=== PATIENT | female | born 1975 | race Caucasian/White ===

== ENCOUNTER 2017-11-07 00:40 | Emergency (ER) | payer OTHER, SELFPAY ==
[2017-11-07 02:21] LABS: Absolute Lymphocytes (CBC) 2.4 K/uL (0.7-4.9); Absolute Monocytes 0.7 K/uL (0.1-1.3); Absolute Neutrophil 3.6 K/uL (1.8-8.0); Basophils % 0.7 % (0-1.3); MCV 85.3 fL (80-100); MPV 8.8 fL (7.6-11.3); Monocytes % 9.8 % (3.3-12.3)
--- NOTE | 2017-11-07 02:34 | ER ---
Nurse's Notes [facility] Name: Nesha Cooper Age: 42 yrs Sex: Female : 1975 Arrival Date: 11/07/2017 Time: 00:42 Bed 13 Private MD: Diagnosis: Abnormal uterine and vaginal bleeding, unspecified Presentation: 11/07 00:57 Presenting complaint: Patient states: "I started what I thought was my normal period, kb1 but I'm bleeding a lot", reports having episodes of dizziness when she gets up and that she is having some nausea. Transition of care: patient was not received from another setting of care. Onset of symptoms was November 06, 2017 at 12:00. Care prior to arrival: None. 00:57 Method Of Arrival: Ambulatory kb1 00:57 Acuity: DAREK 3 kb1 Triage Assessment: 01:01 General: Appears in no apparent distress. Behavior is calm, cooperative. Pain: kb1 Complains of pain in lower abdomen. Neuro: Level of Consciousness is awake, alert, obeys commands. Cardiovascular: Patient's skin is warm and dry. Respiratory: Respiratory effort is even, unlabored, Respiratory pattern is regular, symmetrical. GI: Abdomen is round non-distended, Reports nausea. : Reports vaginal bleeding that is heavy flow since yesterday. 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 - Social history:: Smoking status: Patient uses tobacco products, smokes one pack cigarettes per day. Screenin:06 Abuse screen: Denies threats or abuse. Nutritional screening: No deficits noted. kb1 Tuberculosis screening: No symptoms or risk factors identified. Fall Risk None identified. Assessment: 01:06 Reassessment: No changes from previously documented assessment. kb1 01:53 Reassessment: Patient appears in no apparent distress at this time. Patient and/or kb1 family updated on plan of care and expected duration. Pain level reassessed. Patient is alert, oriented x 3, equal unlabored respirations, skin warm/dry/pink. 02:47 Reassessment: Patient appears in no apparent distress at this time. Patient and/or kb1 family updated on plan of care and expected duration. Pain level reassessed. Patient is alert, oriented x 3, equal unlabored respirations, skin warm/dry/pink. Vital Signs: 01:01 BP 128 / 94; Pulse 81; Resp 18; Temp 97.7(TE); Pulse Ox 100% ; Weight 58.97 kg; Height kb1 6 ft. 0 in. (182.88 cm); Pain 7/10; 01:53 BP 111 / 69; Pulse 81; Resp 18; Pulse Ox 100% ; kb1 02:48 BP 123 / 89; Pulse 76; Resp 18; Pulse Ox 100% ; kb1 01:01 Body Mass Index 17.63 (58.97 kg, 182.88 cm) kb1 ED Course: 00:42 Patient arrived in ED. am2 00:49 Ottoniel Grossman NP is PHCP. pm1 00:49 Christian Blas MD is Attending Physician. pm1 00:55 Clarita Cooper, RN is Primary Nurse. kb1 01:00 Triage completed. kb1 01:01 Arm band placed on. kb1 01:06 Patient has correct armband on for positive identification. Bed in low position. Call kb1 light in reach. Side rails up X 1. Pulse ox on. NIBP on. 01:43 No provider procedures requiring assistance completed. Inserted saline lock: 20 gauge kb1 in right hand, using aseptic technique. Blood collected. 02:51 IV discontinued, intact, bleeding controlled, No redness/swelling at site. Pressure kb1 dressing applied. Administered Medications: 02:49 Drug: Potassium Effervescent Tablet 50 mEq Route: PO; kb1 02:49 Follow up: Response: Medication administered at discharge. kb1 Outcome: 02:33 Discharge ordered by MD. pm1 02:52 Discharged to home ambulatory, with family. kb1 02:52 Condition: stable 02:52 Discharge instructions given to patient, Instructed on discharge instructions, follow up and referral plans. Demonstrated understanding of instructions, follow-up care. 02:56 Patient left the ED. kb1 Signatures: Ottoniel Grossman, SHARON INSTALLATION DRAFTER pm1 Catarina Lion am2 Clarita Cooper RN RN kb1
--- NOTE | 2017-11-07 02:34 | EDPHYS ---
Physician Documentation [facility] Name: Nesha Cooper Age: 42 yrs Sex: Female : 1975 Arrival Date: 11/07/2017 Time: 00:42 Bed 13 Private MD: ED Physician Christian Blas HPI: 11/07 02:34 This 42 yrs old Female presents to ER via Ambulatory with complaints of pm1 Vaginal Bleeding, Nausea. 02:34 The patient presents with vaginal bleeding that is heavy, with no clots. Onset: The pm1 symptoms/episode began/occurred 5 day(s) ago. Modifying factors: The symptoms are alleviated by nothing, the symptoms are aggravated by nothing. Associated signs and symptoms: Pertinent positives: cramping, nausea, Pertinent negatives: diarrhea, dysuria, fever, vaginal discharge. Severity of symptoms: in the emergency department the symptoms are actually worse. The patient is sexually active. The patient has experienced similar episodes in the past, multiple times. The patient has not recently seen a physician. Patient with onset of menstrual cycle 5 days ago but reports it is heavier than her normal menses. 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 - Social history:: Smoking status: Patient uses tobacco products, smokes one pack cigarettes per day. ROS: 02:34 Positive for vaginal bleeding, menstrual abnormality, Negative for burning with pm1 urination. 02:34 Constitutional: Negative for fever, chills, and weight loss, Eyes: Negative for injury, pain, redness, and discharge, ENT: Negative for injury, pain, and discharge, Neck: Negative for injury, pain, and swelling, Cardiovascular: Negative for chest pain, palpitations, and edema, Respiratory: Negative for shortness of breath, cough, wheezing, and pleuritic chest pain, Back: Negative for injury and pain, MS/Extremity: Negative for injury and deformity, Skin: Negative for injury, rash, and discoloration, Neuro: Negative for headache, weakness, numbness, tingling, and seizure. 02:34 Abdomen/GI: Positive for nausea, abdominal cramps, Negative for vomiting, diarrhea. Exam: 02:34 Constitutional: This is a well developed, well nourished patient who is awake, alert, pm1 and in no acute distress. Head/Face: Normocephalic, atraumatic. Eyes: Pupils equal round and reactive to light, extra-ocular motions intact. Lids and lashes normal. Conjunctiva and sclera are non-icteric and not injected. Cornea within normal limits. Periorbital areas with no swelling, redness, or edema. ENT: Nares patent. No nasal discharge, no septal abnormalities noted. Tympanic membranes are normal and external auditory canals are clear. Oropharynx with no redness, swelling, or masses, exudates, or evidence of obstruction, uvula midline. Mucous membranes moist. Neck: Trachea midline, no thyromegaly or masses palpated, and no cervical lymphadenopathy. Supple, full range of motion without nuchal rigidity, or vertebral point tenderness. No Meningismus. Chest/axilla: Normal chest wall appearance and motion. Nontender with no deformity. No lesions are appreciated. Cardiovascular: Regular rate and rhythm with a normal S1 and S2. No gallops, murmurs, or rubs. Normal PMI, no JVD. No pulse deficits. Respiratory: Lungs have equal breath sounds bilaterally, clear to auscultation and percussion. No rales, rhonchi or wheezes noted. No increased work of breathing, no retractions or nasal flaring. 02:34 Back: No spinal tenderness. No costovertebral tenderness. Full range of motion. Skin: Warm, dry with normal turgor. Normal color with no rashes, no lesions, and no evidence of cellulitis. MS/ Extremity: Pulses equal, no cyanosis. Neurovascular intact. Full, normal range of motion. 02:34 Abdomen/GI: Inspection: abdomen appears normal, Bowel sounds: normal, Palpation: abdomen is soft and non-tender, in all quadrants, mass, is not appreciated, rebound tenderness, is not appreciated. 02:34 Neuro: Orientation: is normal, Motor: is normal, moves all fours, Sensation: is normal, no obvious gross deficits. Vital Signs: 01:01 BP 128 / 94; Pulse 81; Resp 18; Temp 97.7(TE); Pulse Ox 100% ; Weight 58.97 kg; Height kb1 6 ft. 0 in. (182.88 cm); Pain 7/10; 01:53 BP 111 / 69; Pulse 81; Resp 18; Pulse Ox 100% ; kb1 02:48 BP 123 / 89; Pulse 76; Resp 18; Pulse Ox 100% ; kb1 01:01 Body Mass Index 17.63 (58.97 kg, 182.88 cm) kb1 MDM: 00:49 Patient medically screened. pm1 02:32 Data reviewed: vital signs. Data interpreted: Pulse oximetry: on room air is 100 %. pm1 Interpretation: normal. Counseling: I had a detailed discussion with the patient and/or guardian regarding: the historical points, exam findings, and any diagnostic results supporting the discharge/admit diagnosis, lab results, the need for outpatient follow up, for definitive care, an OB/Gyne specialist, to return to the emergency department if symptoms worsen or persist or if there are any questions or concerns that arise at home. 11/07 01:04 Order name: Basic Metabolic Panel [facility] 11/07 01:04 Order name: CBC with Diff [facility] 11/07 01:05 Order name: Basic Metabolic Panel; Complete Time: 02:31 EDGA 11/07 01:05 Order name: CBC with Automated Diff; Complete Time: 02:31 EDGA 11/07 01:41 Order name: Urine Dipstick--Ancillary (enter results) [facility] 11/07 01:41 Order name: Urine --Ancillary (enter results) [facility] 11/07 01:04 Order name: Urine Test (obtain specimen); Complete Time: 01:40 pm1 11/07 01:04 Order name: IV Saline Lock; Complete Time: 01:42 pm 11/07 01:04 Order name: Labs collected and sent; Complete Time: 01:42 pm 11/07 01:04 Order name: Urine Dipstick-Ancillary (obtain specimen); Complete Time: 01:40 pm 11/07 01:41 Order name: Urine Dipstick-Ancillary [facility] 11/07 01:41 Order name: Urine --Ancillary EDMS Administered Medications: 02:49 Drug: Potassium Effervescent Tablet 50 mEq Route: PO; kb1 02:49 Follow up: Response: Medication administered at discharge. kb1 Disposition: 03:24 Co-signature as Attending Physician, Christian Blas MD. anuj Disposition: 11/07/17 02:33 Discharged to Home. Impression: Abnormal uterine and vaginal bleeding, unspecified. - Condition is Stable. - Discharge Instructions: Abnormal Uterine Bleeding. - Medication Reconciliation Form, Thank You Letter form. - Follow up: Emergency Department; When: As needed; Reason: Worsening of condition. Follow up: Private Physician; When: 2 - 3 days; Reason: Recheck today's complaints, Continuance of care, Re-evaluation by your physician. - Problem is new. - Symptoms have improved. Signatures: Dispatcher [employer] EDMS Christian Blas MD MD pkl Marinas, Patrick, GAS STATION CASHIER GAS STATION CASHIER pm1 Clarita Cooper, RN RN kb1
[2017-11-07] MEDS ORDERED: POTASSIUM 25 MEQ EFFERV TAB ONE (02:54)
[2017-11-07 03:03] VITALS: TEMP 97.7; O2SAT 100
[2017-11-07 03:05] VITALS: BP 123/89
[2017-11-07 03:37] LABS: Urine Blood 3+ (NEG); Urine Glucose NEGATIVE (NEG); Urine Protein 3+ (NEG); Urine Specific Gravity 1.025 (1.005-1.030); Urine pH 5.5 (5.0-7.0)
== END 2017-11-07 02:56 | disposition home or self-care (01) ==
LOC: ER 00:40
DX: Z88.8 Allergy status to other drugs, medicaments and biological substances; Z88.1 Allergy status to other antibiotic agents; F17.210 Nicotine dependence, cigarettes, uncomplicated; N93.9 Abnormal uterine and vaginal bleeding, unspecified; Z91.048 Other nonmedicinal substance allergy status; Z91.013 Allergy to seafood
CPT/HCPCS: 36415; 80048; 81003; 81025; 85025; 99284

== ENCOUNTER 2017-12-20 15:37 | Emergency (ER) | payer SELFPAY ==
--- NOTE | 2017-12-20 17:06 | RAD REPORT ---
EXAM DESCRIPTION: Stephen Single View12/20/2017 4:56 pm CLINICAL HISTORY: cough COMPARISON: December 2016 FINDINGS: The lungs appear clear of acute infiltrate. The heart is normal size IMPRESSION: No acute abnormalities displayed
--- NOTE | 2017-12-20 17:11 | ER ---
Nurse's Notes [facility] Name: Nesha Cooper Age: 42 yrs Sex: Female : 1975 Arrival Date: 12/20/2017 Time: 15:38 Bed 20 Private MD: Diagnosis: Acute upper respiratory infection, unspecified Presentation: 12/20 15:52 Presenting complaint: Patient states: cough, congestion, sore throat, not feeling well ch for the past week. I am worried i have pneumonia. Transition of care: patient was not received from another setting of care. Onset of symptoms was December 13, 2017. Initial Sepsis Screen: Does the patient meet any 2 criteria? No. Patient's initial sepsis screen is negative. Does the patient have a suspected source of infection? No. Patient's initial sepsis screen is negative. Care prior to arrival: None. 15:52 Method Of Arrival: Ambulatory 15:52 Acuity: DAREK 4 ch Triage Assessment: 15:54 General: Appears in no apparent distress. comfortable, Behavior is calm, cooperative, ch appropriate for age. Pain: Complains of pain in back and chest Pain currently is 6 out of 10 on a pain scale. EENT: Reports nasal congestion nasal discharge. 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 Flu vaccine is not up to date. - Social history:: Smoking status: Patient uses tobacco products, smokes one pack cigarettes per day. Screenin:04 Abuse screen: Denies threats or abuse. Denies injuries from another. Nutritional aj1 screening: No deficits noted. Tuberculosis screening: No symptoms or risk factors identified. Assessment: 16:04 General: Appears in no apparent distress. uncomfortable, Behavior is calm, cooperative, aj1 appropriate for age. Pain: Complains of pain in generalized body aches Pain does not radiate. Pain currently is 6 out of 10 on a pain scale. Quality of pain is described as aching. Neuro: Level of Consciousness is awake, alert, obeys commands, Oriented to person, place, time, situation, Speech is normal, Facial symmetry appears normal. Cardiovascular: Patient's skin is warm and dry. Respiratory: Reports cough that is productive, persistent Airway is patent Respiratory effort is even, unlabored, Respiratory pattern is regular, symmetrical, Breath sounds are clear bilaterally. GI: No signs and/or symptoms were reported involving the gastrointestinal system. : No signs and/or symptoms were reported regarding the genitourinary system. EENT: Throat is reddened bilaterally Reports nasal congestion nasal discharge. Derm: Skin is pink, warm \\T\\ dry. normal. Musculoskeletal: No signs and/or symptoms reported regarding the musculoskeletal system. Circulation, motion, and sensation intact. Vital Signs: 15:54 BP 136 / 96; Pulse 98; Resp 16; Temp 98.5; Pulse Ox 99% on R/A; Weight 58.97 kg; Height ch 6 ft. (182.88 cm); Pain 6/10; 15:54 Body Mass Index 17.63 (58.97 kg, 182.88 cm) ED Course: 15:38 Patient arrived in ED. as 15:53 Triage completed. ch 15:54 Arm band placed on left wrist. Patient placed in an exam room. 15:57 Odette Wilkins, BRENNEN is Primary Nurse. aj1 16:01 Manuel Zhu PA is PHCP. jr8 16:01 Gama Martin MD is Attending Physician. jr8 16:04 Patient has correct armband on for positive identification. Bed in low position. Call aj1 light in reach. Side rails up X 1. 16:04 No provider procedures requiring assistance completed. aj1 16:25 Flu and/or RSV swab sent to lab. Strep swab sent to lab. 3 16:56 X-ray completed. Portable x-ray completed in exam room. Patient tolerated procedure kc2 well. 16:56 XRAY Chest (1 view) In Process Unspecified. EDMS 17:29 Patient did not have IV access during this emergency room visit. aa5 Administered Medications: No medications were administered Outcome: 17:10 Discharge ordered by . dominique 17:29 Discharged to home ambulatory, with significant other. aa5 17:29 Condition: stable 17:29 Discharge instructions given to patient, Instructed on discharge instructions, follow up and referral plans. medication usage, Demonstrated understanding of instructions, follow-up care, medications, Prescriptions given X 2. 17:30 Patient left the ED. aa5 Signatures: Dispatcher [employer] EDMS Syl Mohr, RN RN Odette Choi RN RN [email or web address] Virgen Ron Audri, RN RN aa5 Manuel Zhu PA PA jr8 Kay Salinas 2 Porsha Lerner [facility]
--- NOTE | 2017-12-20 17:11 | EDPHYS ---
Physician Documentation [facility] Name: Nesha Cooper Age: 42 yrs Sex: Female : 1975 Arrival Date: 12/20/2017 Time: 15:38 Bed 20 Private MD: ED Physician Gama Martin HPI: 12/20 17:08 This 42 yrs old Female presents to ER via Ambulatory with complaints of Sore jr8 Throat, Cough. 17:08 The patient presents with sore throat. The patient describes throat pain as constant, jr8 raw. Onset: The symptoms/episode began/occurred acutely, yesterday. Severity of symptoms: At their worst the symptoms were mild, in the emergency department the symptoms are unchanged. Modifying factors: The symptoms are alleviated by nothing, the symptoms are aggravated by nothing. Associated signs and symptoms: Pertinent positives: cough. The patient has not experienced similar symptoms in the past. The patient has not recently seen a physician. 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 Flu vaccine is not up to date. - Social history:: Smoking status: Patient uses tobacco products, smokes one pack cigarettes per day. ROS: 17:08 Eyes: Negative for injury, pain, redness, and discharge, Neck: Negative for injury, jr8 pain, and swelling, Cardiovascular: Negative for chest pain, palpitations, and edema, Abdomen/GI: Negative for abdominal pain, nausea, vomiting, diarrhea, and constipation, Back: Negative for injury and pain, MS/Extremity: Negative for injury and deformity, Skin: Negative for injury, rash, and discoloration, Neuro: Negative for headache, weakness, numbness, tingling, and seizure. 17:08 ENT: Positive for rhinorrhea, sinus congestion, sore throat, Negative for drainage from ear(s), ear pain, difficulty swallowing, difficulty handling secretions. 17:08 Respiratory: Positive for cough, with yellow sputum, Negative for shortness of breath, wheezing. Exam: 17:08 Head/Face: Normocephalic, atraumatic. Eyes: Pupils equal round and reactive to light, jr8 extra-ocular motions intact. Lids and lashes normal. Conjunctiva and sclera are non-icteric and not injected. Cornea within normal limits. Periorbital areas with no swelling, redness, or edema. Neck: Trachea midline, no thyromegaly or masses palpated, and no cervical lymphadenopathy. Supple, full range of motion without nuchal rigidity, or vertebral point tenderness. No Meningismus. Cardiovascular: Regular rate and rhythm with a normal S1 and S2. No gallops, murmurs, or rubs. Normal PMI, no JVD. No pulse deficits. Respiratory: Lungs have equal breath sounds bilaterally, clear to auscultation and percussion. No rales, rhonchi or wheezes noted. No increased work of breathing, no retractions or nasal flaring. Abdomen/GI: Soft, non-tender, with normal bowel sounds. No distension or tympany. No guarding or rebound. No evidence of tenderness throughout. Back: No spinal tenderness. No costovertebral tenderness. Full range of motion. Skin: Warm, dry with normal turgor. Normal color with no rashes, no lesions, and no evidence of cellulitis. MS/ Extremity: Pulses equal, no cyanosis. Neurovascular intact. Full, normal range of motion. Neuro: Awake and alert, GCS 15, oriented to person, place, time, and situation. Cranial nerves II-XII grossly intact. Motor strength 5/5 in all extremities. Sensory grossly intact. Cerebellar exam normal. Normal gait. 17:08 ENT: Exam is negative for earache, ear discharge, TM abnormalities, nasal discharge, Posterior pharynx: Airway: patent, Tonsils: are normal in appearance, no enlargement, no erythema, no exudate, no ulcerations, Uvula: midline, non-edematous, no erythema, swelling, is not appreciated, erythema, that is mild. Vital Signs: 15:54 BP 136 / 96; Pulse 98; Resp 16; Temp 98.5; Pulse Ox 99% on R/A; Weight 58.97 kg; Height ch 6 ft. (182.88 cm); Pain 6/10; 15:54 Body Mass Index 17.63 (58.97 kg, 182.88 cm) MDM: 16:01 Patient medically screened. jr8 17:08 Data reviewed: vital signs, nurses notes, lab test result(s), radiologic studies, plain jr films, and as a result, I will discharge patient. Data interpreted: Pulse oximetry: on room air is 99 %. Interpretation: normal. Counseling: I had a detailed discussion with the patient and/or guardian regarding: the historical points, exam findings, and any diagnostic results supporting the discharge/admit diagnosis, lab results, radiology results, the need for outpatient follow up, a family practitioner, to return to the emergency department if symptoms worsen or persist or if there are any questions or concerns that arise at home. 12/20 15:56 Order name: Flu; Complete Time: 16:54 12/20 15:56 Order name: Strep; Complete Time: 16:54 12/20 16:33 Order name: XRAY Chest (1 view); Complete Time: 17:08 jr8 12/20 16:47 Order name: Throat Culture EDMS Administered Medications: No medications were administered Disposition: 22:34 Co-signature as Attending Physician, Gama Martin MD I agree with the assessment and kdr plan of care. Disposition: 12/20/17 17:10 Discharged to Home. Impression: Acute upper respiratory infection, unspecified. - Condition is Stable. - Discharge Instructions: Upper Respiratory Infection, Adult, Viral Infections. - Prescriptions for Prednisone 20 mg Oral Tablet - take 1 tablet by ORAL route once daily for 5 days; 5 tablet. Tessalon Perles 100 mg Oral Capsule - take 1 capsule by ORAL route every 8 hours As needed; 15 capsule. - Medication Reconciliation Form, Thank You Letter, Antibiotic Education, Prescription Opioid Use form. - Follow up: Private Physician; When: 2 - 3 days; Reason: Recheck today's complaints, Continuance of care, Re-evaluation by your physician. - Problem is new. - Symptoms have improved. Signatures: Dispatcher [employer] EDMS Syl Mohr RN RN Gama Martin MD MD [facility] Katlyn Alcaraz RN RN aa5 Mnauel Zhu PA PA jr8 Corrections: (The following items were deleted from the chart) 17:30 17:10 12/20/2017 17:10 Discharged to Home. Impression: Acute upper respiratory aa5 infection, unspecified. Condition is Stable. Forms are Medication Reconciliation Form, Thank You Letter, Antibiotic Education, Prescription Opioid Use. Follow up: Private Physician; When: 2 - 3 days; Reason: Recheck today's complaints, Continuance of care, Re-evaluation by your physician. Problem is new. Symptoms have improved. jr8
[2017-12-20 17:34] VITALS: BP 136/96; TEMP 98.5; O2SAT 99
== END 2017-12-20 17:30 | disposition home or self-care (01) ==
LOC: ER 15:37
DX: J06.9 Acute upper respiratory infection, unspecified (principal); F17.210 Nicotine dependence, cigarettes, uncomplicated; Z88.0 Allergy status to penicillin; Z91.013 Allergy to seafood; Z91.048 Other nonmedicinal substance allergy status
CPT/HCPCS: 71045; 87070; 87081; 87804; 99283

== ENCOUNTER 2018-02-03 01:11 | Emergency (ER) | payer SELFPAY ==
[2018-02-03] MEDS ORDERED: FLUORESCEIN SODIUM 0.6 MG/WRAP ONE (01:37)
[2018-02-03] MEDS ORDERED: TETRACAINE HCL 0.5% 2ML OPTH ONE (01:38)
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
[2018-02-03 06:15] VITALS: BP 116/92; TEMP 97.9; O2SAT 100
== END 2018-02-03 02:01 | disposition home or self-care (01) ==
LOC: ER 01:11
DX: S05.01XA Injury of conjunctiva and corneal abrasion without foreign body, right eye, initial encounter (principal); J45.909 Unspecified asthma, uncomplicated; X58.XXXA Exposure to other specified factors, initial encounter; Y93.55 Activity, bike riding; Y92.9 Unspecified place or not applicable; Y99.9 Unspecified external cause status; Z88.8 Allergy status to other drugs, medicaments and biological substances; Z88.0 Allergy status to penicillin; Z91.013 Allergy to seafood
CPT/HCPCS: 99283

== ENCOUNTER 2018-06-01 19:07 | Emergency (ER) | payer SELFPAY ==
[2018-06-01] MEDS ORDERED: HYDROCODONE/APAP 5/325 MG TAB ONE (21:02)
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
[2018-06-01 22:03] VITALS: TEMP 98
[2018-06-01 22:05] VITALS: BP 122/78; O2SAT 99
== END 2018-06-01 21:59 | disposition home or self-care (01) ==
LOC: ER 19:07
DX: M79.672 Pain in left foot (principal); W20.8XXA Other cause of strike by thrown, projected or falling object, initial encounter; Y93.9 Activity, unspecified; Y92.9 Unspecified place or not applicable; Z91.09 Other allergy status, other than to drugs and biological substances; Z91.013 Allergy to seafood
CPT/HCPCS: 99284

== ENCOUNTER 2020-01-25 17:57 | Emergency (ER) | payer SELFPAY ==
--- OUTSIDE RECORDS SUMMARY | 2020-01-25 18:24 | XMS REPORT | Continuity of Care Document ---
:1975 Author Organization [facility] t Address [address] [place] [address] Care Team Providers Name Role Phone Unavailable Unavailable Unavailable Problems This patient has no known problems. Allergies, Adverse Reactions, Alerts This patient has no known allergies or adverse reactions. Medications This patient has no known medications. Procedures This patient has no known procedures. Results This patient has no known results.
[2020-01-25 21:09] LABS: Absolute Lymphocytes (CBC) 2.1 K/uL (0.7-4.9); Basophils % 0.5 % (0-1.3); Hematocrit 43.5 % (36.0-45.0); MPV 9.3 fL (7.6-11.3)
[2020-01-25 21:13] LABS: BUN Blood Urea Nitrogen 3 mg/dL (7-18); Bicarbonate 30 mmol/L (21-32); Glucose Level 96 mg/dL (74-106); Sodium Level 140 mmol/L (136-145)
[2020-01-25 21:18] LABS: Potassium 3.4 mmol/L (3.5-5.1)
[2020-01-25] MEDS ORDERED: CLINDAMYCIN 600MG/D5W 600 MG/50 ML BAG IV ONE (21:23)
[2020-01-25] MEDS ORDERED: METHYLPREDNISOLONE 125 MG INJ ONE (21:23)
[2020-01-25] MEDS ORDERED: KETOROLAC 30 MG/ML INJ ONE (21:23)
[2020-01-25] MEDS ORDERED: DIPHENHYDRAMINE 50 MG/ML VIAL ONE (21:33)
[2020-01-25 22:01] LABS: Urine Blood 3+ (NEG); Urine Glucose NEGATIVE (NEG); Urine Protein NEGATIVE (NEG); Urine Specific Gravity 1.015 (1.005-1.030)
--- NOTE | 2020-01-25 23:28 | ER ---
Nurse's Notes [facility] Name: Nesha Cooper Age: 44 yrs Sex: Female : 1975 Arrival Date: 01/25/2020 Time: 18:01 Bed 5 Private MD: Diagnosis: Cellulitis of face;Dysmenorrhea, unspecified Presentation: 01/24 18:21 Chief complaint: Patient states: "I started my period was the first time in 12 months". aa5 Pt also reports sore to chin, and swelling under left eye. Pt also reports SOB and body aching that began 1 week ago. Pt also reports fever up to 101.0 F and headache. Pt denies cough. 18:21 Method Of Arrival: Ambulatory aa5 18:21 Acuity: DAREK 3 aa5 18:21 Coronavirus screen: Patient denies a cough. Patient reports shortness of breath or aa5 difficulty breathing. Patient reports a measured and/or subjective temperature greater than 100.4F. Patient denies travel on a cruise ship or to a country the [facility] currently lists as an affected area. Patient denies contact with known and/or suspected case of COVID-19. Ebola Screen: Patient negative for fever greater than or equal to 101.5 degrees Fahrenheit, and additional compatible Ebola Virus Disease symptoms. Onset of symptoms was January 2020. 18:21 Initial Sepsis Screen: Does the patient meet any 2 criteria? No. Patient's initial aa5 sepsis screen is negative. Does the patient have a suspected source of infection? No. Patient's initial sepsis screen is negative. Risk Assessment: Do you want to hurt yourself or someone else? Patient reports no desire to harm self or others. 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 - Social history:: Smoking status: Patient reports the use of cigarette tobacco products, smokes one-half pack cigarettes per day. Screenin:51 Abuse screen: Denies threats or abuse. Nutritional screening: No deficits noted. ea Tuberculosis screening: No symptoms or risk factors identified. Fall Risk None identified. Assessment: 20:51 General: Appears in no apparent distress. Behavior is calm, cooperative, appropriate ea for age. Pain: Complains of pain in left axilla. Neuro: Level of Consciousness is awake, alert, obeys commands, Oriented to person, place, time, situation. Cardiovascular: Patient's skin is warm and dry. Respiratory: Airway is patent Respiratory effort is even, unlabored, Respiratory pattern is regular, symmetrical. Derm: Skin is pink, warm \\T\\ dry. 21:23 Reassessment: Patient and/or family updated on plan of care and expected duration. Pain ea level reassessed. Patient is alert, oriented x 3, equal unlabored respirations, skin warm/dry/pink. 21:35 Reassessment: Patient and/or family updated on plan of care and expected duration. Pain rr5 level reassessed. Patient is alert, oriented x 3, equal unlabored respirations, skin warm/dry/pink. Pt taken to CT. 22:50 Reassessment: Patient appears in no apparent distress at this time. Patient and/or rr5 family updated on plan of care and expected duration. Pain level reassessed. Patient is alert, oriented x 3, equal unlabored respirations, skin warm/dry/pink. awaiting for results. 23:01 Reassessment: Patient and/or family updated on plan of care and expected duration. Pain ea level reassessed. Pt resting with eyes closed, respirations even and unlabored, chest expansions even and symmetrical. No s/s of pain or discomfort noted at this time. 23:26 Reassessment: [id number]. ea 23:39 Reassessment: Patient and/or family updated on plan of care and expected duration. Pain ea level reassessed. Patient is alert, oriented x 3, equal unlabored respirations, skin warm/dry/pink. Discharge instruction given to patient, verbalized the understanding of instruction. 23:45 Reassessment: Patient and/or family updated on plan of care and expected duration. Pain ea level reassessed. Patient is alert, oriented x 3, equal unlabored respirations, skin warm/dry/pink. Pt left ED via wheelchair, pt at facility for transfer home. Vital Signs: 18:21 BP 138 / 110; Pulse 98; Resp 18 S; Temp 98.8(O); Pulse Ox 98% on R/A; Weight 81.65 kg aa5 (R); Height 6 ft. 0 in. (182.88 cm) (R); Pain 8/10; 20:53 BP 140 / 96; Pulse 80; Resp 18; Pulse Ox 100% on R/A; ea 21:30 BP 143 / 103; Pulse 61; Resp 17; Pulse Ox 100% ; rr5 22:51 BP 111 / 83; Pulse 79; Resp 16; Pulse Ox 99% ; rr5 23:02 BP 104 / 82; Pulse 66; Resp 18; Pulse Ox 98% on R/A; ea 18:21 Body Mass Index 24.41 (81.65 kg, 182.88 cm) aa5 ED Course: 18:01 Patient arrived in ED. as 18:21 Arm band placed on. aa5 18:23 Triage completed. aa5 20:01 Davy Lugo MD is Attending Physician. tw4 20:13 Brady Talbot RN is Primary Nurse. rr5 20:23 Initial lab(s) drawn, by me, sent to lab. Inserted saline lock: 22 gauge in right ca1 forearm, using aseptic technique. Blood collected. 20:51 Patient has correct armband on for positive identification. Bed in low position. Call ea light in reach. 22:52 CT Maxillofacial W/cont In Process Unspecified. EDMS 23:38 No provider procedures requiring assistance completed. IV discontinued, intact, ea bleeding controlled, No redness/swelling at site. Pressure dressing applied. Administered Medications: 21:19 Drug: SOLU-Medrol 125 mg Route: IVP; Site: right forearm; ea 22:30 Follow up: Response: No adverse reaction ea 21:20 Drug: TORadol 30 mg Route: IVP; Site: right forearm; ea 22:00 Follow up: Response: No adverse reaction ea 21:22 Drug: Cleocin 600 mg Route: IVPB; Infused Over: 30 mins; Site: right forearm; ea 22:30 Follow up: Response: No adverse reaction; IV Status: Completed infusion ea 21:30 Drug: Benadryl 25 mg Route: IVP; Site: right forearm; rr5 22:30 Follow up: Response: No adverse reaction ea Outcome: 23:28 Discharge ordered by . tw4 23:39 Discharge instructions given to patient, Instructed on discharge instructions, follow ea up and referral plans. medication usage, Demonstrated understanding of instructions, follow-up care, medications, Prescriptions given X 2. 23:45 Discharged to home via wheelchair, with family. ea 23:45 Condition: stable 23:45 Patient left the ED. ea Signatures: Dispatcher [employer] Virgen Mohan Audri, RN RN aa5 Evelyn Alves RN RN Davy Fitzgerald MD MD tw4 Brady Talbot RN RN rr5 Kristine Olmos RN RN ca1 Corrections: (The following items were deleted from the chart) 18:23 18:21 Chief complaint: Patient states: "I started my period was the first time in 12 aa5 months". Pt also reports sore to chin, and swelling under left eye. Pt also reports SOB and body aching that began 1 week ago. aa5
--- NOTE | 2020-01-25 23:29 | EDPHYS ---
Physician Documentation [facility] Name: Nesha Cooper Age: 44 yrs Sex: Female : 1975 Arrival Date: 01/25/2020 Time: 18:01 Bed 5 Private MD: ED Physician Davy Lugo HPI: 01/24 22:07 This 44 yrs old Female presents to ER via Ambulatory with complaints of tw4 Vaginal Bleeding, Headache. 22:07 The patient presents with cellulitis of the left eye and chin. Description: tw4 erythematous. Onset: The symptoms/episode began/occurred today. Associated signs and symptoms: The patient has no apparent associated signs or symptoms. The patient presents with vaginal bleeding that is light. Onset: The symptoms/episode began/occurred today. Modifying factors: The symptoms are alleviated by nothing, the symptoms are aggravated by nothing. Severity of symptoms: At their worst the symptoms were moderate, in the emergency department the symptoms are unchanged. 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 - Social history:: Smoking status: Patient reports the use of cigarette tobacco products, smokes one-half pack cigarettes per day. ROS: 22:07 Positive for vaginal bleeding. tw4 22:07 Constitutional: Negative for fever, chills, and weight loss, Eyes: Negative for injury, tw4 pain, redness, and discharge, Cardiovascular: Negative for chest pain, palpitations, and edema, Respiratory: Negative for shortness of breath, cough, wheezing, and pleuritic chest pain, Abdomen/GI: Negative for abdominal pain, nausea, vomiting, diarrhea, and constipation, MS/Extremity: Negative for injury and deformity. 22:07 Constitutional: Positive for 22:07 Skin: Positive for erythema. Exam: 22:07 Constitutional: This is a well developed, well nourished patient who is awake, alert, tw4 and in no acute distress. Head/Face: Normocephalic, atraumatic. Chest/axilla: Normal chest wall appearance and motion. Nontender with no deformity. No lesions are appreciated. Cardiovascular: Regular rate and rhythm with a normal S1 and S2. No gallops, murmurs, or rubs. Normal PMI, no JVD. No pulse deficits. Respiratory: Lungs have equal breath sounds bilaterally, clear to auscultation and percussion. No rales, rhonchi or wheezes noted. No increased work of breathing, no retractions or nasal flaring. Abdomen/GI: Soft, non-tender, with normal bowel sounds. No distension or tympany. No guarding or rebound. No evidence of tenderness throughout. Back: No spinal tenderness. No costovertebral tenderness. Full range of motion. MS/ Extremity: Pulses equal, no cyanosis. Neurovascular intact. Full, normal range of motion. Neuro: Awake and alert, GCS 15, oriented to person, place, time, and situation. Cranial nerves II-XII grossly intact. Motor strength 5/5 in all extremities. Sensory grossly intact. Cerebellar exam normal. Normal gait. Vital Signs: 18:21 BP 138 / 110; Pulse 98; Resp 18 S; Temp 98.8(O); Pulse Ox 98% on R/A; Weight 81.65 kg aa5 (R); Height 6 ft. 0 in. (182.88 cm) (R); Pain 8/10; 20:53 BP 140 / 96; Pulse 80; Resp 18; Pulse Ox 100% on R/A; ea 21:30 BP 143 / 103; Pulse 61; Resp 17; Pulse Ox 100% ; rr5 22:51 BP 111 / 83; Pulse 79; Resp 16; Pulse Ox 99% ; rr5 23:02 BP 104 / 82; Pulse 66; Resp 18; Pulse Ox 98% on R/A; ea 18:21 Body Mass Index 24.41 (81.65 kg, 182.88 cm) aa5 MDM: 23:26 Data reviewed: vital signs, nurses notes. Data reviewed: lab test result(s), CBC, tw4 electrolytes, radiologic studies, CT scan. Data interpreted: Pulse oximetry: Interpretation: normal. Counseling: I had a detailed discussion with the patient and/or guardian regarding: the historical points, exam findings, and any diagnostic results supporting the discharge/admit diagnosis, lab results, radiology results. Medication response: Toradol markedly relieved the patient's pain. Response to treatment: the patient's symptoms have markedly improved after treatment, and as a result, I will discharge patient. 23:28 Patient medically screened. 01/24 20:02 Order name: Abo/rh Typing; Complete Time: 22:06 01/24 22:06 Interpretation: Within normal limits. 01/24 20:02 Order name: Basic Metabolic Panel; Complete Time: 22:06 01/24 22:06 Interpretation: Normal except: K 3.4; BUN 3. 01/24 20:02 Order name: CBC with Diff; Complete Time: 22:06 01/24 22:06 Interpretation: Normal except: MCV 88.8; RBC 4.90. 01/24 21:12 Order name: Urine Dipstick--Ancillary (enter results); Complete Time: 22:06 az01/24 22:06 Interpretation: Normal except: UBLD 3+. 01/24 21:12 Order name: Urine --Ancillary (enter results); Complete Time: 22:06 az01/24 21:13 Order name: CT Maxillofacial W/cont 01/24 20:02 Order name: Urine Test (obtain specimen); Complete Time: 21:03 01/24 20:02 Order name: IV Saline Lock; Complete Time: 20:23 01/24 20:02 Order name: Labs collected and sent; Complete Time: 20:23 01/24 20:02 Order name: NPO; Complete Time: 20:23 01/24 20:02 Order name: Urine Dipstick-Ancillary (obtain specimen); Complete Time: 21:03 Administered Medications: 21:19 Drug: SOLU-Medrol 125 mg Route: IVP; Site: right forearm; ea 22:30 Follow up: Response: No adverse reaction ea 21:20 Drug: TORadol 30 mg Route: IVP; Site: right forearm; ea 22:00 Follow up: Response: No adverse reaction ea 21:22 Drug: Cleocin 600 mg Route: IVPB; Infused Over: 30 mins; Site: right forearm; ea 22:30 Follow up: Response: No adverse reaction; IV Status: Completed infusion ea 21:30 Drug: Benadryl 25 mg Route: IVP; Site: right forearm; rr5 22:30 Follow up: Response: No adverse reaction ea Disposition: 01/25/20 23:28 Discharged to Home. Impression: Cellulitis of face, Dysmenorrhea, unspecified. - Condition is Stable. - Discharge Instructions: Cellulitis, Adult, Dysmenorrhea. - Prescriptions for Cleocin 300 mg Oral Capsule - take 1 capsule by ORAL route every 6 hours for 10 days; 40 capsule. Ibuprofen 800 mg Oral Tablet - take 1 tablet by ORAL route every 8 hours As needed take with food; 30 tablet. - Medication Reconciliation Form, Thank You Letter, Antibiotic Education, Prescription Opioid Use form. - Follow up: Private Physician; When: Upon discharge from the Emergency Department; Reason: Recheck today's complaints, Continuance of care, Re-evaluation by your physician. - Problem is new. - Symptoms have improved. Signatures: Dispatcher [employer] EDMS Katlyn Alcaraz RN RN aa5 Evelyn Alves RN RN ea Davy Lugo MD MD tw4 Brady Talbot RN RN rr5 Corrections: (The following items were deleted from the chart) 22:17 22:07 Constitutional: Negative for fever, chills, and weight loss, Eyes: Negative for tw4 injury, pain, redness, and discharge, Cardiovascular: Negative for chest pain, palpitations, and edema, Respiratory: Negative for shortness of breath, cough, wheezing, and pleuritic chest pain, Abdomen/GI: Negative for abdominal pain, nausea, vomiting, diarrhea, and constipation, MS/Extremity: Negative for injury and deformity, Skin: Negative for injury, rash, and discoloration, Neuro: Negative for headache, weakness, numbness, tingling, and seizure, tw4 23:28 23:28 01/25/2020 23:28 Discharged to Home. Impression: Cellulitis of face. Condition is tw4 Stable. Forms are Medication Reconciliation Form, Thank You Letter, Antibiotic Education, Prescription Opioid Use. Follow up: Private Physician; When: Upon discharge from the Emergency Department; Reason: Recheck today's complaints, Continuance of care, Re-evaluation by your physician. Problem is new. Symptoms have improved. tw4 23:45 23:28 01/25/2020 23:28 Discharged to Home. Impression: Cellulitis of face; ea Dysmenorrhea, unspecified. Condition is Stable. Forms are Medication Reconciliation Form, Thank You Letter, Antibiotic Education, Prescription Opioid Use. Follow up: Private Physician; When: Upon discharge from the Emergency Department; Reason: Recheck today's complaints, Continuance of care, Re-evaluation by your physician. Problem is new. Symptoms have improved. tw4
[2020-01-25 23:54] VITALS: TEMP 98.8
[2020-01-25 23:59] VITALS: BP 104/82; O2SAT 98
--- NOTE | 2020-01-27 10:19 | RAD REPORT ---
EXAM DESCRIPTION: CT - Maxillofacial W/Cont - 01/26/2020 5:41 am CLINICAL HISTORY: R/o orbital cellultis COMPARISON: None. TECHNIQUE: CT MAXILLOFACIAL WITH IV CONTRAST on 01/25/2020 9:13 PM CDT This exam was performed according to our departmental dose-optimization program, which includes autom ated exposure control, adjustment of the mA and/or kV according to patient size and/or use of iterati ve reconstruction technique. FINDINGS: There is no acute fracture. The paranasal sinuses are clear. There is left periorbital sof t tissue swelling. There is some superficial involvement with no retro-orbital structural abnormaliti es. The globes are intact. There is no abscess. Mastoid air cells are clear. Temporomandibular joints are intact. There are no significant soft tissue abnormalities. IMPRESSION: Left periorbital soft tissue swelling without intraorbital or retrobulbar involvement. Electronically signed by: Jagdeep Hunter MD 01/25/2020 10:57 PM CDT Due to temporary technical issues with the PACS/Fluency reporting system, reports are being signed by the in house radiologist without review as a courtesy to ensure prompt reporting. The interpreting r adiologist is fully responsible for the content of the report.
== END 2020-01-25 23:45 | disposition home or self-care (01) ==
LOC: ER 17:57
DX: N94.6 Dysmenorrhea, unspecified (principal); L03.211 Cellulitis of face; Z91.013 Allergy to seafood; Z91.09 Other allergy status, other than to drugs and biological substances; F17.210 Nicotine dependence, cigarettes, uncomplicated
CPT/HCPCS: 36415; 70487; 80048; 81003; 81025; 85025; 86900; 86901; 96365; 96375; 99284; J1200; J2930; Q9967

== ENCOUNTER 2020-03-10 00:09 | Emergency (ER) | payer SELFPAY ==
--- OUTSIDE RECORDS SUMMARY | 2020-03-10 00:12 | XMS REPORT | Continuity of Care Document ---
:1975 Author Organization [facility] t Address [facility] [place] [address] Care Team Providers Name Role Phone Unavailable Unavailable Unavailable Problems This patient has no known problems. Allergies, Adverse Reactions, Alerts This patient has no known allergies or adverse reactions. Medications This patient has no known medications. Procedures This patient has no known procedures. Results This patient has no known results.
--- NOTE | 2020-03-10 01:07 | EDPHYS ---
Physician Documentation [facility] Name: Nesha Cooper Age: 44 yrs Sex: Female : 1975 Arrival Date: 03/10/2020 Time: 00:15 Bed 18 Private MD: ED Physician Dahlia Gaming HPI: 03/10 00:54 This 44 yrs old Female presents to ER via Ambulatory with complaints of jmm Spider Bite. 00:54 the patient presents with a swollen area of the buttocks. Onset: The symptoms/episode jmm began/occurred 1 week(s) ago. Possible cause(s): unknown. Associated signs and symptoms: Pertinent positives: erythema, swelling, Pertinent negatives: fever. Modifying factors: the symptoms are alleviated by nothing, the symptoms are aggravated by nothing. This is a 44 year old female with a history of anxiety, asthma that presents to the ED with complaints of swelling to her right buttocks. Symptoms began approx 1 week ago. Denies fever. . 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 - Social history:: Smoking status: Patient reports the use of cigarette tobacco products, smokes one-half pack cigarettes per day. ROS: 01:01 Constitutional: Negative for fever, chills, and weight loss, Cardiovascular: Negative jmm for chest pain, palpitations, and edema, Respiratory: Negative for shortness of breath, cough, wheezing, and pleuritic chest pain. 01:01 Skin: Positive for erythema. 01:01 All other systems are negative. Exam: 01:01 Head/Face: atraumatic. Eyes: EOMI, no conjunctival erythema appreciated ENT: Moist jmm Mucus Membranes Neck: Trachea midline, Supple Chest/axilla: Normal chest wall appearance and motion. Cardiovascular: Regular rate and rhythm. No edema appreciated Respiratory: Normal respirations, no respiratory distress appreciated Abdomen/GI: Non distended, soft Back: Normal ROM 01:01 Constitutional: The patient appears alert, awake, anxious, uncomfortable. 01:01 Skin: erythema noted to the right right gluteal region. ttp, non fluctuant. 01:01 Neuro: Orientation: is normal, Mentation: is normal, Memory: is normal. 01:01 Psych: Behavior/mood is pleasant, cooperative. Vital Signs: 00:29 BP 123 / 76; Pulse 95; Resp 20 S; Temp 98.3(O); Pulse Ox 96% on R/A; Weight 68.04 kg bb (R); Height 6 ft. 0 in. (182.88 cm) (R); Pain 10/10; 01:25 BP 118 / 74; Pulse 84; Resp 08; Pulse Ox 99% on R/A; wh 00:29 Body Mass Index 20.34 (68.04 kg, 182.88 cm) bb MDM: 00:39 Patient medically screened. [facility] 01:02 Data reviewed: vital signs, nurses notes. Counseling: I had a detailed discussion with bhanu the patient and/or guardian regarding: the historical points, exam findings, and any diagnostic results supporting the discharge/admit diagnosis, the need for outpatient follow up, to return to the emergency department if symptoms worsen or persist or if there are any questions or concerns that arise at home. ED course: Patient is alert and non toxic in appearance in the ED. PE finding appear consistent with cellulitis. Patient is given strict return precautions. Patient understood and agrees with the plan of care. . Administered Medications: 01:20 Drug: Bactrim (160 mg-800 mg (DS) 1 tablet Route: PO; 01:45 Follow up: Response: No adverse reaction 01:20 Drug: Antrim 5 mg-325 mg 1 tabs Route: PO; 01:45 Follow up: Response: No adverse reaction; Pain is decreased; RASS: Alert and Calm (0) Disposition: 03:52 Co-signature as Attending Physician, Dahlia Gaming MD. ma2 Disposition: 03/10/20 01:07 Discharged to Home. Impression: Cellulitis of buttock. - Condition is Stable. - Discharge Instructions: Cellulitis, Adult. - Prescriptions for Bactrim DS 800- 160 mg Oral Tablet - take 1 tablet by ORAL route every 12 hours for 10 days; 20 tablet. - Medication Reconciliation Form, Thank You Letter, Antibiotic Education, Prescription Opioid Use form. - Follow up: Private Physician; When: 2 - 3 days; Reason: Recheck today's complaints, Continuance of care, Re-evaluation by your physician. Signatures: Rock Oliveros PA PA jmm Ballard, Brenda, RN RN Ewelina Gibson Dahlia Gaming MD MD ma2 Corrections: (The following items were deleted from the chart) 01:33 01:07 03/10/2020 01:07 Discharged to Home. Impression: Cellulitis of buttock. Condition wh is Stable. Forms are Medication Reconciliation Form, Thank You Letter, Antibiotic Education, Prescription Opioid Use. Follow up: Private Physician; When: 2 - 3 days; Reason: Recheck today's complaints, Continuance of care, Re-evaluation by your physician. bhanu
--- NOTE | 2020-03-10 01:07 | ER ---
Nurse's Notes [facility] Name: Nesha Cooper Age: 44 yrs Sex: Female : 1975 Arrival Date: 03/10/2020 Time: 00:15 Bed 18 Private MD: Diagnosis: Cellulitis of buttock Presentation: 03/10 00:29 Chief complaint: Patient states: she thinks she has a spider bite to her right buttock bb x 1 week which is very painful. Coronavirus screen: Patient denies a cough. Patient denies shortness of breath or difficulty breathing. Patient denies measured and/or subjective temperature greater than 100.4F prior to today's visit. Patient denies travel on a cruise ship or to a country the [facility] currently lists as an affected area. Proceed with normal triage. Ebola Screen: No symptoms or risks identified at this time. Initial Sepsis Screen: Does the patient meet any 2 criteria? No. Patient's initial sepsis screen is negative. Does the patient have a suspected source of infection? No. Patient's initial sepsis screen is negative. Risk Assessment: Do you want to hurt yourself or someone else? Patient reports no desire to harm self or others. Onset of symptoms was March 02, 2020. 00:29 Method Of Arrival: Ambulatory bb 00:29 Acuity: DAREK 4 bb Triage Assessment: 00:30 General: Appears in no apparent distress. Behavior is calm, cooperative, appropriate wh for age. 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 - Social history:: Smoking status: Patient reports the use of cigarette tobacco products, smokes one-half pack cigarettes per day. Screenin:30 Abuse screen: Denies threats or abuse. Denies injuries from another. Nutritional wh screening: No deficits noted. Tuberculosis screening: No symptoms or risk factors identified. Fall Risk None identified. Assessment: 00:25 General: Appears in no apparent distress. Behavior is calm, cooperative, appropriate wh for age. Pain: Complains of pain in right gluteus carli Pain does not radiate. Pain currently is 8 out of 10 on a pain scale. Quality of pain is described as aching. Neuro: Level of Consciousness is awake, alert, obeys commands, Oriented to person, place, time, situation, Appropriate for age. Cardiovascular: Capillary refill < 3 seconds. Respiratory: Airway is patent Respiratory effort is even, unlabored, Respiratory pattern is regular, symmetrical. GI: Abdomen is flat, non-distended. : No signs and/or symptoms were reported regarding the genitourinary system. EENT: No signs and/or symptoms were reported regarding the EENT system. Derm: Skin is intact. Musculoskeletal: Circulation, motion, and sensation intact. 01:30 Reassessment: Patient appears in no apparent distress at this time. No changes from previously documented assessment. Patient and/or family updated on plan of care and expected duration. Pain level reassessed. Patient is alert, oriented x 3, equal unlabored respirations, skin warm/dry/pink. Vital Signs: 00:29 BP 123 / 76; Pulse 95; Resp 20 S; Temp 98.3(O); Pulse Ox 96% on R/A; Weight 68.04 kg bb (R); Height 6 ft. 0 in. (182.88 cm) (R); Pain 10/10; 01:25 BP 118 / 74; Pulse 84; Resp 08; Pulse Ox 99% on R/A; wh 00:29 Body Mass Index 20.34 (68.04 kg, 182.88 cm) ED Course: 00:15 Patient arrived in ED. cl3 00:22 Rock Oliveros PA is PHCP. jmm 00:22 Dahlia Gaming MD is Attending Physician. jmm 00:30 Patient has correct armband on for positive identification. Bed in low position. Call light in reach. Side rails up X 1. Pulse ox on. NIBP on. 00:33 Ewelina Wallace is Primary Nurse. wh 00:34 Triage completed. bb 00:35 Arm band placed on Patient placed in an exam room, on a stretcher, on pulse oximetry. bb 01:30 Patient did not have IV access during this emergency room visit. 01:45 No provider procedures requiring assistance completed. Administered Medications: 01:20 Drug: Bactrim (160 mg-800 mg (DS) 1 tablet Route: PO; 01:45 Follow up: Response: No adverse reaction 01:20 Drug: [place] 5 mg-325 mg 1 tabs Route: PO; 01:45 Follow up: Response: No adverse reaction; Pain is decreased; RASS: Alert and Calm (0) Outcome: 01:07 Discharge ordered by MD. drummond 01:30 Discharged to home ambulatory. 01:30 Condition: stable 01:30 Discharge instructions given to patient, Instructed on discharge instructions, follow up and referral plans. POC Demonstrated understanding of instructions, follow-up care, medications, POC Prescriptions given X 1. 01:33 Patient left the ED. Signatures: Rock Oliveros PA PA jmm Ballard, Brenda, BRENNEN RN Ewelina Gibson Lalo Humphreys cl3 Corrections: (The following items were deleted from the chart) 02:05 01:45 Patient did not have IV access during this emergency room visit. [facility]
[2020-03-10] MEDS ORDERED: SMZ./TMP. 800/160 MG TABLET ONE (01:37)
[2020-03-10] MEDS ORDERED: HYDROCODONE/APAP 5/325 MG TAB ONE (01:37)
[2020-03-10 01:53] VITALS: BP 123/76; TEMP 98.3; O2SAT 96
== END 2020-03-10 01:33 | disposition home or self-care (01) ==
LOC: ER 00:09
DX: L03.317 Cellulitis of buttock (principal); F17.210 Nicotine dependence, cigarettes, uncomplicated; Z88.8 Allergy status to other drugs, medicaments and biological substances; Z91.013 Allergy to seafood; Z85.828 Personal history of other malignant neoplasm of skin
CPT/HCPCS: 99283

== ENCOUNTER 2020-05-31 03:01 | Emergency (ER) | payer SELFPAY ==
--- OUTSIDE RECORDS SUMMARY | 2020-05-31 03:04 | XMS REPORT | Continuity of Care Document ---
:1975 Author Organization [facility] t Address [address] [place] [address] Care Team Providers Name Role Phone Unavailable Unavailable Unavailable Problems This patient has no known problems. Allergies, Adverse Reactions, Alerts This patient has no known allergies or adverse reactions. Medications This patient has no known medications. Procedures This patient has no known procedures. Results This patient has no known results.
[2020-05-31] MEDS ORDERED: LIDOCAINE 1% W/EPI 1:100,000 MDV 20 ML VIAL ONE (03:31)
--- NOTE | 2020-05-31 03:31 | EDPHYS ---
Physician Documentation [facility] Name: Nesha Cooper Age: 44 yrs Sex: Female : 1975 Arrival Date: 05/31/2020 Time: 03:03 Bed 8 Private MD: ED Physician Luis Bernal HPI: 05/31 03:18 This 44 yrs old Female presents to ER via EMS with complaints of Dizziness. fer 03:18 This 44 yrs old Female presents to ER via EMS with complaints of abscessses fer in right axilla. 03:18 The patient presents with. Onset: The symptoms/episode began/occurred 3 day(s) ago. fer Modifying factors: The symptoms are alleviated by nothing, the symptoms are aggravated by nothing. 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 - Social history:: Smoking status: Patient reports the use of cigarette tobacco products, smokes one-half pack cigarettes per day. ROS: 03:20 Constitutional: Negative for fever, chills, and weight loss, Eyes: Negative for injury, fer pain, redness, and discharge, ENT: Negative for injury, pain, and discharge, Neck: Negative for injury, pain, and swelling, Cardiovascular: Negative for chest pain, palpitations, and edema, Respiratory: Negative for shortness of breath, cough, wheezing, and pleuritic chest pain, Abdomen/GI: Negative for abdominal pain, nausea, vomiting, diarrhea, and constipation, Back: Negative for injury and pain, : Negative for injury, bleeding, discharge, and swelling, Skin: Negative for injury, rash, and discoloration, Neuro: Negative for headache, weakness, numbness, tingling, and seizure, Psych: Negative for depression, anxiety, suicide ideation, homicidal ideation, and hallucinations, Allergy/Immunology: Negative for hives, rash, and allergies, Endocrine: Negative for neck swelling, polydipsia, polyuria, polyphagia, and marked weight changes, Hematologic/Lymphatic: Negative for swollen nodes, abnormal bleeding, and unusual bruising. 03:20 MS/extremity: Positive for pain, swelling, tenderness, of the right axilla. Exam: 03:20 Constitutional: This is a well developed, well nourished patient who is awake, alert, fer and in no acute distress. Head/Face: Normocephalic, atraumatic. Eyes: Pupils equal round and reactive to light, extra-ocular motions intact. Lids and lashes normal. Conjunctiva and sclera are non-icteric and not injected. Cornea within normal limits. Periorbital areas with no swelling, redness, or edema. ENT: Nares patent. No nasal discharge, no septal abnormalities noted. Tympanic membranes are normal and external auditory canals are clear. Oropharynx with no redness, swelling, or masses, exudates, or evidence of obstruction, uvula midline. Mucous membranes moist. Neck: Trachea midline, no thyromegaly or masses palpated, and no cervical lymphadenopathy. Supple, full range of motion without nuchal rigidity, or vertebral point tenderness. No Meningismus. Chest/axilla: Normal chest wall appearance and motion. Nontender with no deformity. No lesions are appreciated. Cardiovascular: Regular rate and rhythm with a normal S1 and S2. No gallops, murmurs, or rubs. Normal PMI, no JVD. No pulse deficits. Respiratory: Lungs have equal breath sounds bilaterally, clear to auscultation and percussion. No rales, rhonchi or wheezes noted. No increased work of breathing, no retractions or nasal flaring. Abdomen/GI: Soft, non-tender, with normal bowel sounds. No distension or tympany. No guarding or rebound. No evidence of tenderness throughout. Back: No spinal tenderness. No costovertebral tenderness. Full range of motion. MS/ Extremity: Pulses equal, no cyanosis. Neurovascular intact. Full, normal range of motion. Neuro: Awake and alert, GCS 15, oriented to person, place, time, and situation. Cranial nerves II-XII grossly intact. Motor strength 5/5 in all extremities. Sensory grossly intact. Cerebellar exam normal. Normal gait. 03:20 Skin: abscess, that is small, with fluctuance, with induration, with surrounding cellulitis, that is mild, cellulitis, that is minimal, induration, that is moderate is noted, injury, is not appreciated, no rash present. Vital Signs: 03:06 BP 116 / 80; Pulse 80; Resp 16; Temp 98.3; Pulse Ox 98% ; Weight 72.57 kg; Height 6 ft. rv 0 in. (182.88 cm); Pain 8/10; 03:06 Body Mass Index 21.70 (72.57 kg, 182.88 cm) rv Procedures: 03:25 I \\T\\ D: Incision and drainage was performed for an abscess of the right axilla. Prepped fer with Betadine, Anesthetized with 10 ml's 1% Lidocaine w/ Epi. Incised with #11 blade. Drained moderate amount Packed with iodoform gauze, Dressing: non-Adherent dressing. I \\T\\ D: the patient tolerated the procedure well. MDM: 03:03 Patient medically screened. [facility] 03:20 Differential diagnosis: abscess, cellulitis. Differential diagnosis: idiopathic fer dizziness, sepsis. Data reviewed: vital signs, nurses notes. Data interpreted: air sampling and monitoring: rate is 80 beats/min, rhythm is normal sinus rhythm. 05/31 03:18 Order name: I\\T\\D Setup; Complete Time: 03:18 [facility] 05/31 03:18 Order name: Dressing - Wound; Complete Time: 03:24 [facility] 05/31 03:18 Order name: Gloves, Sterile; Complete Time: 03:24 [facility] 05/31 03:18 Order name: Setup Suture Tray; Complete Time: 03:24 [facility] Administered Medications: 03:23 Not Given (duplicate order): Lidocaine-Epinephrine -1%: (1:100,000) 1 vials 20 ml lp1 Infiltration once; to bedside 03:32 Drug: Bactrim (160 mg-800 mg (DS) 1 tablet Route: PO; lp1 04:31 Follow up: Response: No adverse reaction lp1 03:32 Drug: Doxycycline 200 mg Route: PO; lp1 04:32 Follow up: Response: No adverse reaction lp1 03:36 Drug: [place] 10 mg-325 mg 1 tabs Route: PO; lp1 04:32 Follow up: Response: No adverse reaction lp1 03:56 Drug: Lidocaine-Epinephrine -1%: (1:100,000) 10 ml Volume: 20 ml; Route: Infiltration; lp1 Disposition: 05/31/20 03:31 Discharged to Home. Impression: Cutaneous abscess of right axilla - multiple. - Condition is Stable. - Discharge Instructions: Skin Abscess, Incision and Drainage, Skin Abscess, [id number], Incision and Drainage, Care After. - Prescriptions for Doxycycline Hyclate 100 mg Oral Tablet - take 1 tablet by ORAL route every 12 hours; 20 tablet. Motrin IB 200 mg Oral Tablet - take 2 tablet by ORAL route every 6 hours As needed as needed with food; 30 tablet. Bactrim DS 800- 160 mg Oral Tablet - take 1 tablet by ORAL route every 12 hours for 10 days; 20 tablet. - Medication Reconciliation Form, Thank You Letter, Antibiotic Education, Prescription Opioid Use form. - Follow up: Private Physician; When: 2 - 3 days; Reason: Recheck today's complaints, Continuance of care, Re-evaluation by your physician. Follow up: Rubio Ron; When: 2 - 3 days; Reason: Recheck today's complaints, Continuance of care, Re-evaluation by your physician. - Problem is new. - Symptoms have improved. Signatures: Black Fallon RN RN Luis Miranda MD MD cha Pena, Laura, RN RN lp1 Ovidio Donald RN RN rv Corrections: (The following items were deleted from the chart) 04:28 03:31 05/31/2020 03:31 Discharged to Home. Impression: Cutaneous abscess of right sg axilla - multiple. Condition is Stable. Discharge Instructions: Skin Abscess, Incision and Drainage, Skin Abscess, [id number], Incision and Drainage, Care After. Prescriptions for Doxycycline Hyclate 100 mg Oral Tablet - take 1 tablet by ORAL route every 12 hours; 20 tablet, Motrin IB 200 mg Oral Tablet - take 2 tablet by ORAL route every 6 hours As needed as needed with food; 30 tablet, Bactrim DS 800-160 mg Oral Tablet - take 1 tablet by ORAL route every 12 hours for 10 days; 20 tablet. and Forms are Medication Reconciliation Form, Thank You Letter, Antibiotic Education, Prescription Opioid Use. Follow up: Private Physician; When: 2 - 3 days; Reason: Recheck today's complaints, Continuance of care, Re-evaluation by your physician. Follow up: Rubio Ron; When: 2 - 3 days; Reason: Recheck today's complaints, Continuance of care, Re-evaluation by your physician. Problem is new. Symptoms have improved. fer
--- NOTE | 2020-05-31 03:31 | ER ---
Nurse's Notes [facility] Name: Nesha Cooper Age: 44 yrs Sex: Female : 1975 Arrival Date: 05/31/2020 Time: 03:03 Bed 8 Private MD: Diagnosis: Cutaneous abscess of right axilla-multiple Presentation: 05/31 03:06 Chief complaint: Patient states: I WALKED FROM [facility] TO [facility]. I GOT TIRED, LIGHT rv HEADED, AND DEHYDRATED. EMS states: PATIENT COMPLAINING OF LIGHT HEADED, BUT MORE CONCERNED OF HER CYST/ABSCESS ON HER RIGHT UNDERARM. Coronavirus screen: Client denies travel out of the [place] in the last 14 days. Ebola Screen: No symptoms or risks identified at this time. Initial Sepsis Screen: Does the patient meet any 2 criteria? No. Patient's initial sepsis screen is negative. Does the patient have a suspected source of infection? No. Patient's initial sepsis screen is negative. Risk Assessment: Do you want to hurt yourself or someone else? Patient reports no desire to harm self or others. Onset of symptoms was May 31, 2020 at 00:00. 03:06 Method Of Arrival: EMS: [facility] rv 03:06 Acuity: DAREK 3 rv Triage Assessment: 03:11 General: Appears uncomfortable, unkempt, Behavior is calm, cooperative. Pain: Complains rv of pain in right axilla Pain currently is 8 out of 10 on a pain scale. EENT: No signs and/or symptoms were reported regarding the EENT system. Neuro: Level of Consciousness is awake, alert, obeys commands, Oriented to person, place, time, situation. Cardiovascular: Patient's skin is warm and dry. Respiratory: Airway is patent. Derm: Abscess located on right axilla is red, is raised, MULTIPLE. 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 - Social history:: Smoking status: Patient reports the use of cigarette tobacco products, smokes one-half pack cigarettes per day. Screenin:13 Abuse screen: Denies threats or abuse. Denies injuries from another. Nutritional rv screening: No deficits noted. Tuberculosis screening: No symptoms or risk factors identified. Fall Risk None identified. Assessment: 03:18 General: Appears in no apparent distress. Behavior is calm, cooperative, appropriate lp1 for age. Pain: Complains of pain in right axilla Pain currently is 8 out of 10 on a pain scale. Neuro: Level of Consciousness is awake, alert, obeys commands, Oriented to person, place, time, situation. Cardiovascular: Patient's skin is warm and dry. Respiratory: Respiratory effort is even, unlabored. GI: No signs and/or symptoms were reported involving the gastrointestinal system. : No signs and/or symptoms were reported regarding the genitourinary system. EENT: No signs and/or symptoms were reported regarding the EENT system. Derm: Skin is pink, warm \\T\\ dry. Abscess located on right axilla multiple small abscesses noted to right axilla, per patient x 3 weeks after shaving; red, raised, tender on palpation. Musculoskeletal: No deficits noted. 04:20 Reassessment: Discussed discharge instruction with patient, follow up that is lp1 necessary, wound care instructions; demonstrates understanding. Vital Signs: 03:06 BP 116 / 80; Pulse 80; Resp 16; Temp 98.3; Pulse Ox 98% ; Weight 72.57 kg; Height 6 ft. rv 0 in. (182.88 cm); Pain 8/10; 03:06 Body Mass Index 21.70 (72.57 kg, 182.88 cm) rv ED Course: 03:03 Patient arrived in ED. am2 03:03 Luis Bernal MD is Attending Physician. fer 03:06 Ovidio Donald RN is Primary Nurse. rv 03:11 Triage completed. rv 03:13 Arm band placed on right wrist. Patient placed in the treatment room, on a stretcher, rv Patient notified of wait time. 03:13 Patient has correct armband on for positive identification. Pulse ox on. NIBP on. rv 03:31 Rubio Ron MD is Referral Physician. fer 03:45 Assist provider with I \\T\\ D: of an abscess on right axilla Set up I\\T\\D tray. Performed by lp 1 Luis Bernal MD Wound packed. iodoform gauze, Dressing with 4x4's and foam tape. 04:15 Patient did not have IV access during this emergency room visit. lp1 Administered Medications: 03:23 Not Given (duplicate order): Lidocaine-Epinephrine -1%: (1:100,000) 1 vials 20 ml lp1 Infiltration once; to bedside 03:32 Drug: Bactrim (160 mg-800 mg (DS) 1 tablet Route: PO; lp1 04:31 Follow up: Response: No adverse reaction lp1 03:32 Drug: Doxycycline 200 mg Route: PO; lp1 04:32 Follow up: Response: No adverse reaction lp1 03:36 Drug: [place] 10 mg-325 mg 1 tabs Route: PO; lp1 04:32 Follow up: Response: No adverse reaction lp1 03:56 Drug: Lidocaine-Epinephrine -1%: (1:100,000) 10 ml Volume: 20 ml; Route: Infiltration; lp1 Outcome: 03:31 Discharge ordered by . fer 04:20 Discharged to home ambulatory. lp1 04:20 Condition: good 04:20 Discharge instructions given to patient, Instructed on discharge instructions, follow up and referral plans. medication usage, wound care, Demonstrated understanding of instructions, follow-up care, medications, wound care, Prescriptions given X 3. 04:28 Patient left the ED. sg Signatures: Black Fallon RN Luis Banda MD MD cha Pena, Laura, RN RN lp1 Catarina Lion am2 Ovidio Donald RN RN rv Corrections: (The following items were deleted from the chart) 04:32 04:15 No provider procedures requiring assistance completed. lp1 lp1
[2020-05-31] MEDS ORDERED: SMZ./TMP. 800/160 MG TABLET ONE (03:43)
[2020-05-31] MEDS ORDERED: HYDROCODONE/APAP 10/325 TAB ONE (03:43)
[2020-05-31] MEDS ORDERED: DOXYCYCLINE 100 MG CAP PO ONE (03:44)
[2020-05-31 04:36] VITALS: BP 116/80; TEMP 98.3; O2SAT 98
== END 2020-05-31 04:28 | disposition home or self-care (01) ==
LOC: ER 03:01
PROC: 0J9D0ZZ Drainage of Right Upper Arm Subcutaneous Tissue and Fascia, Open Approach (ICD-10-PCS; principal; 2020-05-31)
DX: L02.411 Cutaneous abscess of right axilla (principal); I10 Essential (primary) hypertension; F17.210 Nicotine dependence, cigarettes, uncomplicated; Z88.1 Allergy status to other antibiotic agents; Z88.8 Allergy status to other drugs, medicaments and biological substances; Z85.828 Personal history of other malignant neoplasm of skin; Z91.013 Allergy to seafood; Z91.048 Other nonmedicinal substance allergy status
CPT/HCPCS: 99284

== ENCOUNTER 2020-06-01 01:43 | Emergency (ER) | payer SELFPAY ==
--- OUTSIDE RECORDS SUMMARY | 2020-06-01 01:47 | XMS REPORT | Continuity of Care Document ---
:1975 Author Organization [facility] t Address [address] [place] [address] Dr. Jenkins. [address] [place] [id number] Care Team Providers Name Role Phone Unavailable Unavailable Unavailable Problems This patient has no known problems. Allergies, Adverse Reactions, Alerts This patient has no known allergies or adverse reactions. Medications This patient has no known medications. Procedures This patient has no known procedures. Results This patient has no known results.
--- NOTE | 2020-06-01 02:18 | ER ---
Nurse's Notes [facility] Name: Nesha Cooper Age: 44 yrs Sex: Female : 1975 Arrival Date: 06/01/2020 Time: 01:45 Bed 8 Private MD: Diagnosis: Encounter for change or removal of surgical wound dressing Presentation: 06/01 01:47 Chief complaint: Seen here last night, lanced abscess x4 under armpit. sg Request the area be examined again by the ERP. Coronavirus screen: Client denies travel out of the [place] in the last 14 days. At this time, the client does not indicate any symptoms associated with coronavirus-19. Ebola Screen: Patient negative for fever greater than or equal to 101.5 degrees Fahrenheit, and additional compatible Ebola Virus Disease symptoms Patient denies exposure to infectious person. Patient denies travel to an Ebola-affected area in the 21 days before illness onset. No symptoms or risks identified at this time. Initial Sepsis Screen: Does the patient meet any 2 criteria? No. Patient's initial sepsis screen is negative. Does the patient have a suspected source of infection? No. Patient's initial sepsis screen is negative. Risk Assessment: Do you want to hurt yourself or someone else? Patient reports no desire to harm self or others. Onset of symptoms was June 01, 2020. Care prior to arrival: None. Transition of care: patient was not received from another setting of care. 01:47 Acuity: DAREK 5 sg 01:47 Method Of Arrival: Ambulatory sg Triage Assessment: 02:31 General: Appears in no apparent distress. Behavior is calm, cooperative, appropriate ll2 for age. 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 - Social history:: Smoking status: Patient denies any tobacco usage or history of. Screenin:56 Abuse screen: Denies threats or abuse. Nutritional screening: No deficits noted. Tuberculosis screening: No symptoms or risk factors identified. Fall Risk None identified. Vital Signs: 01:57 BP 147 / 69; Pulse 90; Resp 18; Temp 98.7; Pulse Ox 100% ; Weight 72.57 kg; Height 6 ea ft. (182.88 cm); 01:57 Body Mass Index 21.70 (72.57 kg, 182.88 cm) ED Course: 01:45 Patient arrived in ED. as 01:47 Arm band placed on. sg 01:48 Triage completed. sg 01:49 Davy Lugo MD is Attending Physician. tw4 02:05 Inserted saline lock: 20 gauge in left wrist, using aseptic technique. Blood collected. ds4 02:31 Patient has correct armband on for positive identification. Bed in low position. Call ll2 light in reach. Pulse ox on. NIBP on. 02:32 No provider procedures requiring assistance completed. IV discontinued, intact, ll2 bleeding controlled, No redness/swelling at site. Pressure dressing applied. Administered Medications: No medications were administered Outcome: 02:18 Discharge ordered by . tw4 02:32 Discharged to home ambulatory. ll2 02:32 Condition: stable 02:32 Discharge instructions given to patient, Instructed on discharge instructions, follow up and referral plans. medication usage, Demonstrated understanding of instructions, follow-up care, medications, Prescriptions given X 1. 02:32 Patient left the ED. ll2 Signatures: Black Fallon, RN BRENNEN Virgen Ron Donovan ds4 Evelyn Alves, RN Davy Gallardo ea, MD MD 4 Claritza Ross RN RN ll2
--- NOTE | 2020-06-01 02:33 | EDPHYS ---
Physician Documentation [facility] Name: Nesha Cooper Age: 44 yrs Sex: Female : 1975 Arrival Date: 06/01/2020 Time: 01:45 Bed 8 Private MD: ED Physician Davy Lugo HPI: 06/01 02:26 This 44 yrs old Female presents to ER via Ambulatory with complaints of Wound tw4 Recheck. 02:26 Patient presents to ED for recheck of: abscess. The affected area is on the right tw4 axilla. Previous treatment: The patient was initially treated yesterday. Progress: The patient reports excellent improvement in the affected area. There has been resolution, improvement, or non-development of any drainage, fever, pain, redness or swelling. The patient has not experienced similar symptoms in the past. 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 - Social history:: Smoking status: Patient denies any tobacco usage or history of. ROS: 02:26 Constitutional: Negative for fever, chills, and weight loss, Eyes: Negative for injury, tw4 pain, redness, and discharge, Cardiovascular: Negative for chest pain, palpitations, and edema, Respiratory: Negative for shortness of breath, cough, wheezing, and pleuritic chest pain, Abdomen/GI: Negative for abdominal pain, nausea, vomiting, diarrhea, and constipation. 02:26 MS/Extremity: Negative for injury and deformity. 02:26 Skin: Positive for abscess, cellulitis, Negative for abrasions, pallor, puncture, rash. Exam: 02:26 Constitutional: This is a well developed, well nourished patient who is awake, alert, tw4 and in no acute distress. Head/Face: Normocephalic, atraumatic. Chest/axilla: Normal chest wall appearance and motion. Nontender with no deformity. No lesions are appreciated. Cardiovascular: Regular rate and rhythm with a normal S1 and S2. No gallops, murmurs, or rubs. Normal PMI, no JVD. No pulse deficits. Respiratory: Lungs have equal breath sounds bilaterally, clear to auscultation and percussion. No rales, rhonchi or wheezes noted. No increased work of breathing, no retractions or nasal flaring. 02:26 Skin: Wound recheck: Abscess: the wound has improved, decreased discharge, decreased erythema, decreased pain, decreased surrounding cellulitis, decreased swelling. Vital Signs: 01:57 BP 147 / 69; Pulse 90; Resp 18; Temp 98.7; Pulse Ox 100% ; Weight 72.57 kg; Height 6 ea ft. (182.88 cm); :57 Body Mass Index 21.70 (72.57 kg, 182.88 cm) ea Procedures: 02:26 Performed removal of packing from I\\T\\D site. tw4 MDM: 01:49 Patient medically screened. tw4 Administered Medications: No medications were administered Disposition: 06/01/20 02:18 Discharged to Home. Impression: Encounter for change or removal of surgical wound dressing. - Condition is Stable. - Discharge Instructions: Skin Abscess, How to Change Your Dressing, Incision Care, Adult, Percutaneous Abscess Drain. - Prescriptions for Tylenol- Codeine #3 300-30 mg Oral Tablet - take 2 tablet by ORAL route every 6 hours As needed; 6 tablet. - Medication Reconciliation Form, Thank You Letter, Antibiotic Education, Prescription Opioid Use form. - Follow up: Private Physician; When: Upon discharge from the Emergency Department; Reason: Recheck today's complaints, Continuance of care, Re-evaluation by your physician. - Problem is new. - Symptoms have improved. Signatures: Black Fallon RN RN Davy Lugo MD MD tw4 Claritza Ross RN RN ll2 Corrections: (The following items were deleted from the chart) 02:32 02:18 06/01/2020 02:18 Discharged to Home. Impression: Encounter for change or removal ll2 of surgical wound dressing. Condition is Stable. Forms are Medication Reconciliation Form, Thank You Letter, Antibiotic Education, Prescription Opioid Use. Follow up: Private Physician; When: Upon discharge from the Emergency Department; Reason: Recheck today's complaints, Continuance of care, Re-evaluation by your physician. Problem is new. Symptoms have improved. tw4
[2020-06-01 02:44] VITALS: BP 147/69; TEMP 98.7; O2SAT 100
== END 2020-06-01 02:32 | disposition home or self-care (01) ==
LOC: ER 01:43
DX: Z48.01 Encounter for change or removal of surgical wound dressing (principal); Z91.09 Other allergy status, other than to drugs and biological substances; Z91.013 Allergy to seafood
CPT/HCPCS: 99284

== ENCOUNTER 2020-06-03 20:56 | Emergency (ER) | payer SELFPAY ==
--- OUTSIDE RECORDS SUMMARY | 2020-06-03 20:58 | XMS REPORT | Continuity of Care Document ---
:1975 Author Organization [facility] t Address [address] [place] [address] Dr. Jenkins. [address] [place] [id number] Care Team Providers Name Role Phone Unavailable Unavailable Unavailable Problems This patient has no known problems. Allergies, Adverse Reactions, Alerts This patient has no known allergies or adverse reactions. Medications This patient has no known medications. Procedures This patient has no known procedures. Results This patient has no known results.
[2020-06-03] MEDS ORDERED: TETRACAINE HCL 0.5% 4ML OPTH ONE (21:20)
[2020-06-03] MEDS ORDERED: FLUORESCEIN SODIUM 1 MG/WRAP ONE ×2 (21:22)
--- NOTE | 2020-06-03 22:11 | ER ---
Nurse's Notes [facility] Name: Nesha Cooper Age: 44 yrs Sex: Female : 1975 Arrival Date: 06/03/2020 Time: 20:56 Bed 19 Private MD: Diagnosis: Central corneal ulcer, right eye;Central corneal ulcer, left eye Presentation: 06/03 21:00 Chief complaint: Patient states: I slept with colored contact lenses for 24 hours, I ca1 just woke up about 1-1.5 hrs ago and I can't see anything on both eyes and it hurts so bad. Coronavirus screen: Client denies travel out of the [place] in the last 14 days. At this time, the client does not indicate any symptoms associated with coronavirus-19. Ebola Screen: Patient negative for fever greater than or equal to 101.5 degrees Fahrenheit, and additional compatible Ebola Virus Disease symptoms Patient denies exposure to infectious person. Patient denies travel to an Ebola-affected area in the 21 days before illness onset. No symptoms or risks identified at this time. Mechanism of Injury: No Mechanism of Injury. Initial Sepsis Screen: Does the patient meet any 2 criteria? No. Patient's initial sepsis screen is negative. Does the patient have a suspected source of infection? No. Patient's initial sepsis screen is negative. Risk Assessment: Do you want to hurt yourself or someone else? Patient reports no desire to harm self or others. Onset of symptoms was June 03, 2020. 21:00 Acuity: DAREK 2 ca1 21:00 Method Of Arrival: Wheelchair ca1 21:28 The patient reports a positive loss of vision. The patient's loss of vision began ll2 suddenly. 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 - Social history:: Smoking status: Patient reports the use of cigarette tobacco products, smokes one-half pack cigarettes per day. - Family history:: not pertinent. - Hospitalizations: : No recent hospitalization is reported. Screenin:26 Abuse screen: Denies threats or abuse. Nutritional screening: No deficits noted. ll2 Tuberculosis screening: No symptoms or risk factors identified. Fall Risk None identified. Assessment: 21:17 General: Appears in no apparent distress. uncomfortable, Behavior is calm, cooperative, ll2 appropriate for age. Pain: Complains of pain in right eye and left eye. Neuro: Level of Consciousness is awake, alert, obeys commands, Oriented to person, place, time, situation. Cardiovascular: Capillary refill < 3 seconds Patient's skin is warm and dry. Respiratory: Airway is patent Respiratory effort is even, unlabored, Respiratory pattern is regular, symmetrical. GI: No signs and/or symptoms were reported involving the gastrointestinal system. : No signs and/or symptoms were reported regarding the genitourinary system. EENT: Eyes are tearing on outer aspect of conjuctiva of right eye, iris of right eye, inner aspect of conjuctiva of right eye, outer aspect of conjuctiva of left eye, iris of left eye and inner aspect of conjunctiva of left eye Sclera/Cornea. Derm: Skin is intact, is healthy with good turgor, Skin is dry, Skin is pink, warm \\T\\ dry. Skin temperature is warm. Musculoskeletal: Circulation, motion, and sensation intact. Range of motion: intact in all extremities. 22:04 Reassessment: Patient and/or family updated on plan of care and expected duration. Pain ll2 level reassessed. Patient is alert, oriented x 3, equal unlabored respirations, skin warm/dry/pink. Vital Signs: 21:00 BP 167 / 98; Pulse 73; Resp 17 S; Temp 97.3(TE); Pulse Ox 100% on R/A; Weight 72.57 kg ca1 (R); Height 6 ft. 0 in. (182.88 cm) (R); Pain 9/10; 21:27 BP 167 / 98; Pulse 58; Resp 16; Pulse Ox 100% on R/A; ll2 21:00 Body Mass Index 21.70 (72.57 kg, 182.88 cm) ca1 ED Course: 20:56 Patient arrived in ED. am2 20:59 Linscombe, Claritza, RN is Primary Nurse. ll2 21:04 Pablo Dsouza MD is Attending Physician. rn 21:11 Triage completed. ca1 21:12 Arm band placed on right wrist. ca1 21:27 Patient has correct armband on for positive identification. Bed in low position. Call ll2 light in reach. Side rails up X 1. Pulse ox on. NIBP on. 22:11 Zabrina Vaughan MD is Referral Physician. rn Administered Medications: 22:08 Drug: Corona 5 mg-325 mg 1 tabs Route: PO; ll2 22:08 Drug: Zofran (Ondansetron) 4 mg Route: PO; ll2 Outcome: 22:11 Discharge ordered by MD. rn 22:33 Patient left the ED. ea Signatures: Pablo Dsouza MD MD rn Moreno, Amanda am2 Evelyn Alves, RN RN ea Kristine Olmos RN RN ca1 Claritza Ross, BRENNEN RN 2
--- NOTE | 2020-06-03 22:12 | EDPHYS ---
Physician Documentation [facility] Name: Nesha Cooper Age: 44 yrs Sex: Female : 1975 Arrival Date: 06/03/2020 Time: 20:56 Bed 19 Private MD: ED Physician Pablo Dsouza HPI: 06/03 22:03 This 44 yrs old Female presents to ER via Wheelchair with complaints of Eye rn Pain, Vision Problem. 22:03 The patient is experiencing blurred vision, pain, tearing, to both eyes, caused by rn contact lens, an unknown mechanism. Onset: The symptoms/episode began/occurred today. Aggravated by closing eye, opening eye, rubbing. Severity of symptoms: At their worst the symptoms were moderate in the emergency department the symptoms are unchanged. The patient has not experienced similar symptoms in the past. Reports fell asleep with contacts for > 24 hours, woke up today with tearing watery eyes, sensitive to open eyes, feels like something in eyes. Reports significant other took out both contacts and threw them away but still feels like something in there. . 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 - Social history:: Smoking status: Patient reports the use of cigarette tobacco products, smokes one-half pack cigarettes per day. - Family history:: not pertinent. - Hospitalizations: : No recent hospitalization is reported. ROS: 22:03 Constitutional: Negative for fever, chills, and weight loss, Eyes: + watery teary eyes, rn foreign body sensation Exam: 22:06 Constitutional: This is a well developed, well nourished patient who is awake, alert, rn apears uncomfortable, rubbing eyes Eyes: + bilateral clear watery discharge with mild scleral injection, improved some with tetracaine, eyelids everted and no foreign object identified. Fluorescein uptake bilateral cornea with eliptical shape, consistent with abrasions/ulcerations. No dendritic lesions. PERRL. No hypopyon Vital Signs: 21:00 BP 167 / 98; Pulse 73; Resp 17 S; Temp 97.3(TE); Pulse Ox 100% on R/A; Weight 72.57 kg ca1 (R); Height 6 ft. 0 in. (182.88 cm) (R); Pain 9/10; 21:27 BP 167 / 98; Pulse 58; Resp 16; Pulse Ox 100% on R/A; ll2 21:00 Body Mass Index 21.70 (72.57 kg, 182.88 cm) ca1 MDM: 21:04 Patient medically screened. rn 22:06 Differential diagnosis: Corneal abrasion of Corneal ulcer of Foreign body in Data rn reviewed: vital signs, nurses notes, and as a result, I will discharge patient. Counseling: I had a detailed discussion with the patient and/or guardian regarding: the historical points, exam findings, and any diagnostic results supporting the discharge/admit diagnosis, the need for outpatient follow up, to return to the emergency department if symptoms worsen or persist or if there are any questions or concerns that arise at home. Response to treatment: the patient's symptoms have mildly improved after treatment, and as a result, I will discharge patient. Administered Medications: 22:08 Drug: Maurice 5 mg-325 mg 1 tabs Route: PO; ll2 22:08 Drug: Zofran (Ondansetron) 4 mg Route: PO; ll2 Disposition: 06/03/20 22:11 Discharged to Home. Impression: Central corneal ulcer, right eye, Central corneal ulcer, left eye. - Condition is Stable. - Discharge Instructions: Corneal Ulcer. - Prescriptions for Vigamox 0.5 % Ophthalmic Drops - instill 1 drop by OPHTHALMIC route every 8 hours for 7 days; 5 milliliter. - Medication Reconciliation Form, Thank You Letter, Antibiotic Education, Prescription Opioid Use form. - Follow up: Zabrina Vaughan MD; When: 2 - 3 days; Reason: Recheck today's complaints, Re-evaluation by your physician. - Problem is new. - Symptoms have improved. Signatures: Pablo Dsouza MD MD rn Antunez, Elena, RN RN ea Acob, Cheryl, RN RN ca1 Linscombe, Calritza, RN RN ll2 Corrections: (The following items were deleted from the chart) 22:12 22:06 Constitutional: This is a well developed, well nourished patient who is awake, rn alert, apears uncomfortable, rubbing eyes Eyes: + bilateral clear watery discharge with mild scleral injection, improved some with tetracaine, eyelids everted and no foreign object identified. Fluorescein uptake bilateral cornea with eliptical shape, consistent with abrasions/ulcerations. No dendritic lesions. PERRL. rn 22:33 22:11 06/03/2020 22:11 Discharged to Home. Impression: Central corneal ulcer, right ea eye; Central corneal ulcer, left eye. Condition is Stable. Forms are Medication Reconciliation Form, Thank You Letter, Antibiotic Education, Prescription Opioid Use. Follow up: Zabrina Vaughan; When: 2 - 3 days; Reason: Recheck today's complaints, Re-evaluation by your physician. Problem is new. Symptoms have improved. rn
[2020-06-03] MEDS ORDERED: HYDROCODONE/APAP 5/325 MG TAB ONE (22:21)
[2020-06-03] MEDS ORDERED: ONDANSETRON 4 MG (ODT) TAB ONE (22:21)
[2020-06-03 22:51] VITALS: BP 167/98; TEMP 97.3; O2SAT 100
== END 2020-06-03 22:33 | disposition home or self-care (01) ==
LOC: ER 20:56
DX: H16.013 Central corneal ulcer, bilateral (principal); F17.210 Nicotine dependence, cigarettes, uncomplicated; I10 Essential (primary) hypertension; Z88.0 Allergy status to penicillin; Z88.1 Allergy status to other antibiotic agents; Z88.8 Allergy status to other drugs, medicaments and biological substances
CPT/HCPCS: 99283

== ENCOUNTER 2020-09-11 21:15 | Emergency (ER) | payer SELFPAY ==
--- OUTSIDE RECORDS SUMMARY | 2020-09-11 21:21 | XMS REPORT | Continuity of Care Document ---
:1975 Author Organization [facility] t Address [address] [place] [address] Dr. Caban [address] [place] [address] Care Team Providers Name Role Phone Unavailable Unavailable Unavailable Problems This patient has no known problems. Allergies, Adverse Reactions, Alerts This patient has no known allergies or adverse reactions. Medications This patient has no known medications. Procedures This patient has no known procedures. Results This patient has no known results.
--- NOTE | 2020-09-11 21:47 | EDPHYS ---
Physician Documentation [facility] Name: Nesha Cooper Age: 44 yrs Sex: Female : 1975 Arrival Date: 09/11/2020 Time: 21:18 Bed 8 Private MD: ED Physician Luis Bernal HPI: 09/11 21:39 This 44 yrs old Female presents to ER via Unassigned with complaints of sore fer throat, pain, exudate. 21:39 The patient presents with sore throat, dysphagia, of liquids, of both solids and fer liquids. The patient describes throat pain as burning, constant. Onset: The symptoms/episode began/occurred 2 day(s) ago. Severity of symptoms: At their worst the symptoms were mild, moderate, in the emergency department the symptoms are unchanged. Modifying factors: The symptoms are alleviated by nothing, the symptoms are aggravated by nothing. Associated signs and symptoms: The patient has no apparent associated signs or symptoms. The patient has experienced similar episodes in the past, several times. 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 - Social history:: Smoking status: Patient reports the use of cigarette tobacco products. - Family history:: not pertinent. ROS: 21:39 Constitutional: Negative for fever, chills, and weight loss, Eyes: Negative for injury, fer pain, redness, and discharge, Neck: Negative for injury, pain, and swelling, Cardiovascular: Negative for chest pain, palpitations, and edema, Respiratory: Negative for shortness of breath, cough, wheezing, and pleuritic chest pain, Abdomen/GI: Negative for abdominal pain, nausea, vomiting, diarrhea, and constipation, Back: Negative for injury and pain, : Negative for injury, bleeding, discharge, and swelling, MS/Extremity: Negative for injury and deformity, Skin: Negative for injury, rash, and discoloration, Neuro: Negative for headache, weakness, numbness, tingling, and seizure, Psych: Negative for depression, anxiety, suicide ideation, homicidal ideation, and hallucinations, Allergy/Immunology: Negative for hives, rash, and allergies, Endocrine: Negative for neck swelling, polydipsia, polyuria, polyphagia, and marked weight changes, Hematologic/Lymphatic: Negative for swollen nodes, abnormal bleeding, and unusual bruising. 21:39 ENT: Positive for difficulty swallowing, sore throat. Exam: 21:39 Constitutional: This is a well developed, well nourished patient who is awake, alert, fer and in no acute distress. Head/Face: Normocephalic, atraumatic. Eyes: Pupils equal round and reactive to light, extra-ocular motions intact. Lids and lashes normal. Conjunctiva and sclera are non-icteric and not injected. Cornea within normal limits. Periorbital areas with no swelling, redness, or edema. Neck: Trachea midline, no thyromegaly or masses palpated, and no cervical lymphadenopathy. Supple, full range of motion without nuchal rigidity, or vertebral point tenderness. No Meningismus. Chest/axilla: Normal chest wall appearance and motion. Nontender with no deformity. No lesions are appreciated. Cardiovascular: Regular rate and rhythm with a normal S1 and S2. No gallops, murmurs, or rubs. Normal PMI, no JVD. No pulse deficits. Respiratory: Lungs have equal breath sounds bilaterally, clear to auscultation and percussion. No rales, rhonchi or wheezes noted. No increased work of breathing, no retractions or nasal flaring. Abdomen/GI: Soft, non-tender, with normal bowel sounds. No distension or tympany. No guarding or rebound. No evidence of tenderness throughout. Back: No spinal tenderness. No costovertebral tenderness. Full range of motion. Skin: Warm, dry with normal turgor. Normal color with no rashes, no lesions, and no evidence of cellulitis. MS/ Extremity: Pulses equal, no cyanosis. Neurovascular intact. Full, normal range of motion. Neuro: Awake and alert, GCS 15, oriented to person, place, time, and situation. Cranial nerves II-XII grossly intact. Motor strength 5/5 in all extremities. Sensory grossly intact. Cerebellar exam normal. Normal gait. Psych: Awake, alert, with orientation to person, place and time. Behavior, mood, and affect are within normal limits. 21:39 ENT: Posterior pharynx: Tonsils: bilaterally enlarged, with erythema, with exudate, Uvula: normal, midline, erythema, swelling, that is mild, erythema, that is mild, exudate, that is moderate, peritonsillar mass, is not appreciated, pooling of secretions, is not appreciated. 21:39 Musculoskeletal/extremity: DVT Exam: No signs of deep vein thrombosis. no pain, no swelling, no tenderness, negative Homans' sign noted on exam, no appreciated bluish discoloration, no erythema, no increased warmth. Vital Signs: 21:32 BP 130 / 85; Pulse 70; Resp 18; Temp 98.0; Pulse Ox 98% on R/A; ea 23:00 BP 115 / 76; Pulse 70; Resp 18; Pulse Ox 98% ; ea MDM: 21:28 Patient medically screened. [facility] 21:43 Differential diagnosis: cocksackie virus, epiglottitis, group A strep tonsillitis, fer laryngitis, mononucleosis, peritonsillar abscess pharyngitis, retropharyngeal abcess tonsillitis, upper respiratory infection, uvulitis. Data reviewed: vital signs, nurses notes. Data interpreted: quality assurance monitor: rate is 85 beats/min, rhythm is regular, Pulse oximetry: on room air is 100 %. Test interpretation: by ED physician or midlevel provider:. Counseling: I had a detailed discussion with the patient and/or guardian regarding: the historical points, exam findings, and any diagnostic results supporting the discharge/admit diagnosis, the need for outpatient follow up, for definitive care, an ENT specialist, a family practitioner. 09/11 21:37 Order name: PO challenge; Complete Time: 22:17 [facility] Administered Medications: 22:17 Drug: Bicillin L-A 1.8 million units Route: IM; Site: right gluteus; ea 23:00 Follow up: Response: No adverse reaction ea 22:17 Drug: Decadron 10 mg Route: IM; Site: right deltoid; ea 23:00 Follow up: Response: No adverse reaction ea 22:17 Drug: Rocephin (cefTRIAXone) 1 grams Route: IM; Site: left gluteus; ea 23:00 Follow up: Response: No adverse reaction ea Disposition: 09/11/20 21:46 Discharged to Home. Impression: Acute tonsillitis. - Condition is Stable. - Discharge Instructions: Tonsillitis, Tonsillitis, [id number]. - Medication Reconciliation Form, Thank You Letter, Antibiotic Education, Prescription Opioid Use form. - Follow up: Private Physician; When: 2 - 3 days; Reason: Recheck today's complaints, Continuance of care, Re-evaluation by your physician. Follow up: Yeni Lerner MD; When: 2 - 3 days; Reason: Recheck today's complaints, Re-evaluation by your physician. - Problem is new. - Symptoms have improved. Signatures: Luis Bernal MD MD cha Antunez, Elena RN RN ea Corrections: (The following items were deleted from the chart) 23:18 21:46 09/11/2020 21:46 Discharged to Home. Impression: Acute tonsillitis. Condition is ea Stable. Forms are Medication Reconciliation Form, Thank You Letter, Antibiotic Education, Prescription Opioid Use. Follow up: Private Physician; When: 2 - 3 days; Reason: Recheck today's complaints, Continuance of care, Re-evaluation by your physician. Follow up: Yeni Lerner; When: 2 - 3 days; Reason: Recheck today's complaints, Re-evaluation by your physician. Problem is new. Symptoms have improved. fer
--- NOTE | 2020-09-11 21:47 | ER ---
Nurse's Notes [facility] Name: Nesha Cooper Age: 44 yrs Sex: Female : 1975 Arrival Date: 09/11/2020 Time: 21:18 Bed 8 Private MD: Diagnosis: Acute tonsillitis Presentation: 09/11 21:32 Chief complaint: EMS states: Reports abdominal pain that started today, states " my ea throat has been sore for the past 2 days". Coronavirus screen: At this time, the client does not indicate any symptoms associated with coronavirus-19. Ebola Screen: No symptoms or risks identified at this time. Initial Sepsis Screen: Does the patient meet any 2 criteria? No. Patient's initial sepsis screen is negative. Does the patient have a suspected source of infection? No. Patient's initial sepsis screen is negative. Risk Assessment: Do you want to hurt yourself or someone else? Patient reports no desire to harm self or others. Onset of symptoms was September 11, 2020. 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 - Social history:: Smoking status: Patient reports the use of cigarette tobacco products. - Family history:: not pertinent. Screenin:31 Abuse screen: Denies threats or abuse. Nutritional screening: No deficits noted. ea Tuberculosis screening: No symptoms or risk factors identified. Fall Risk None identified. Assessment: 21:50 General: Appears in no apparent distress. Behavior is calm, cooperative, appropriate ea for age. Pain: Complains of pain in throat. Neuro: Level of Consciousness is awake, alert, obeys commands, Oriented to person, place, time, situation. Respiratory: Airway is patent Respiratory effort is even, unlabored, Respiratory pattern is regular, symmetrical. Derm: Skin is pink, warm \\T\\ dry. 22:00 Reassessment: Patient and/or family updated on plan of care and expected duration. Pain ea level reassessed. Patient is alert, oriented x 3, equal unlabored respirations, skin warm/dry/pink. Pt reported she does not have allergies to penicillin or ampicillin states "I'm only allergic to iodine". 22:26 Reassessment: Patient and/or family updated on plan of care and expected duration. Pain ea level reassessed. Patient is alert, oriented x 3, equal unlabored respirations, skin warm/dry/pink. 23:16 Reassessment: Patient and/or family updated on plan of care and expected duration. Pain ea level reassessed. Patient is alert, oriented x 3, equal unlabored respirations, skin warm/dry/pink. Discharge instruction given to patient, verbalized the understanding of instruction. Pt left ED ambulatory tolerating well. Vital Signs: 21:32 BP 130 / 85; Pulse 70; Resp 18; Temp 98.0; Pulse Ox 98% on R/A; ea 23:00 BP 115 / 76; Pulse 70; Resp 18; Pulse Ox 98% ; ea ED Course: 21:18 Patient arrived in ED. mw2 21:28 Luis Bernal MD is Attending Physician. fer 21:45 Yeni Lerner MD is Referral Physician. fer 22:03 Triage completed. ea 22:04 Arm band placed on right wrist. Patient placed in an exam room, on a stretcher, on ea pulse oximetry. 22:04 Patient has correct armband on for positive identification. Bed in low position. Call ea light in reach. Side rails up X2. 22:07 Axel Cardenas RN is Primary Nurse. dm5 22:09 No provider procedures requiring assistance completed. Patient did not have IV access ea during this emergency room visit. Administered Medications: 22:17 Drug: Bicillin L-A 1.8 million units Route: IM; Site: right gluteus; ea 23:00 Follow up: Response: No adverse reaction ea 22:17 Drug: Decadron 10 mg Route: IM; Site: right deltoid; ea 23:00 Follow up: Response: No adverse reaction ea 22:17 Drug: Rocephin (cefTRIAXone) 1 grams Route: IM; Site: left gluteus; ea 23:00 Follow up: Response: No adverse reaction ea Outcome: 21:46 Discharge ordered by . fer 23:17 Discharged to home ambulatory. tasia 23:17 Condition: stable 23:17 Discharge instructions given to patient, Instructed on discharge instructions, follow up and referral plans. Demonstrated understanding of instructions, follow-up care. 23:18 Patient left the ED. tasia Signatures: Ruthie Gibbs, RN RN Luis Kat MD MD cha Antunez, Elena RN RN Maryuri Callaway mw2
[2020-09-11] MEDS ORDERED: CEFTRIAXONE 1000 MG/VIAL ONE (22:08)
[2020-09-11] MEDS ORDERED: dexAMETHasone 10 MG/ML VIAL ONE (22:08)
[2020-09-11] MEDS ORDERED: PEN G BENZ LA 1.2MU/2ML SYRINGE IM ONE (22:09)
[2020-09-12 01:00] VITALS: TEMP 98; O2SAT 98
[2020-09-12 01:01] VITALS: BP 115/76
== END 2020-09-11 23:18 | disposition home or self-care (01) ==
LOC: ER 21:15
DX: J03.90 Acute tonsillitis, unspecified (principal); Z91.09 Other allergy status, other than to drugs and biological substances; Z91.013 Allergy to seafood; Z88.8 Allergy status to other drugs, medicaments and biological substances; F17.210 Nicotine dependence, cigarettes, uncomplicated
CPT/HCPCS: 96372; 99283; J0561; J1100

== ENCOUNTER 2021-01-29 20:51 | Emergency (ER) | payer SELFPAY ==
--- OUTSIDE RECORDS SUMMARY | 2021-01-29 20:55 | XMS REPORT | Continuity of Care Document ---
:1975 Author Organization [facility] t Address [address] [place] [address] Dr. Caban [address] [place] [id number] Care Team Providers Name Role Phone Unavailable Unavailable Unavailable Problems This patient has no known problems. Allergies, Adverse Reactions, Alerts This patient has no known allergies or adverse reactions. Medications This patient has no known medications. Procedures This patient has no known procedures. Results This patient has no known results.
[2021-01-29] MEDS ORDERED: MORPHINE 4 MG/ML SYR ONE (22:36)
[2021-01-29] MEDS ORDERED: CLINDAMYCIN IV 150 MG/ML (4 mL) VIAL ONE (22:36)
[2021-01-29] MEDS ORDERED: ONDANSETRON 4 MG (ODT) TAB ONE (22:36)
--- NOTE | 2021-01-29 23:36 | ER ---
Nurse's Notes [facility] Name: Nesha Cooper Age: 45 yrs Sex: Female : 1975 Arrival Date: 01/29/2021 Time: 20:52 Bed 20 Private MD: Diagnosis: Cutaneous Abscess of left Thigh Presentation: 01/29 20:57 Chief complaint: Patient states: I got bitten, probably a snake 2 days ago on my R ca1 upper back thigh. Now, hurts, swollen and red. Coronavirus screen: Client denies travel out of the [place] in the last 14 days. At this time, the client does not indicate any symptoms associated with coronavirus-19. Ebola Screen: Patient negative for fever greater than or equal to 101.5 degrees Fahrenheit, and additional compatible Ebola Virus Disease symptoms Patient denies exposure to infectious person. Patient denies travel to an Ebola-affected area in the 21 days before illness onset. Initial Sepsis Screen: Does the patient meet any 2 criteria? No. Patient's initial sepsis screen is negative. Does the patient have a suspected source of infection? No. Patient's initial sepsis screen is negative. Risk Assessment: Do you want to hurt yourself or someone else? Patient reports no desire to harm self or others. Onset of symptoms was January 29, 2021. 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 Last tetanus immunization: up to date Flu vaccine is not up to date. - Social history:: Smoking status: Patient reports the use of cigarette tobacco products, smokes one-half pack cigarettes per day. Screenin:00 Abuse screen: Denies threats or abuse. Denies injuries from another. Nutritional rr5 screening: No deficits noted. Tuberculosis screening: No symptoms or risk factors identified. Fall Risk None identified. Total Quijano Fall Scale indicates No Risk (0-24 pts). Assessment: 21:20 General: Appears in no apparent distress. uncomfortable, Behavior is calm, cooperative, rr5 appropriate for age. Pain: Complains of pain in left gluteal fold Pain currently is 10 out of 10 on a pain scale. Quality of pain is described as aching, Pain began gradually. Neuro: Level of Consciousness is awake, alert, obeys commands, Oriented to person, place, time. Cardiovascular: Capillary refill < 3 seconds Patient's skin is warm and dry. Respiratory: Airway is patent Respiratory effort is even, unlabored, Respiratory pattern is regular, symmetrical. GI: No signs and/or symptoms were reported involving the gastrointestinal system. : No signs and/or symptoms were reported regarding the genitourinary system. EENT: No signs and/or symptoms were reported regarding the EENT system. Derm: Skin is intact, is healthy with good turgor, Skin is pink, warm \\T\\ dry. Wound noted left gluteal fold Wound is redness on the surrounding area warm to touch 11 cm x 13.5 cm marking done. Musculoskeletal: Capillary refill < 3 seconds. 22:20 Reassessment: Patient appears in no apparent distress at this time. Patient is alert, rr5 oriented x 3, equal unlabored respirations, skin warm/dry/pink. refused to do I\\T\\ D. 23:51 Reassessment: Patient appears in no apparent distress at this time. Patient is alert, rr5 oriented x 3, equal unlabored respirations, skin warm/dry/pink. patient wants the prescription for now, still refused for I\\T\\D. discharge instruction given and explained without complaints made Patient states symptoms have improved. Vital Signs: 20:57 BP 126 / 83; Pulse 123; Resp 16 S; Temp 98.4(TE); Pulse Ox 100% on R/A; Weight 74.84 kg ca1 (M); Height 6 ft. 0 in. (182.88 cm) (R); Pain 10/10; 23:00 BP 135 / 89; Pulse 105; Resp 17; Pulse Ox 98% ; rr5 23:52 BP 121 / 75; Pulse 99; Resp 19; Pulse Ox 98% ; rr5 20:57 Body Mass Index 22.38 (74.84 kg, 182.88 cm) ca1 ED Course: 20:52 Patient arrived in ED. am4 20:58 Triage completed. ca1 20:59 Arm band placed on right wrist. ca1 21:12 Brady Talbot, RN is Primary Nurse. rr5 21:15 Rock Oliveros PA is PHCP. [facility] 21:15 Chintan Camacho MD is Attending Physician. [facility] 21:20 Patient has correct armband on for positive identification. Bed in low position. Pulse rr5 ox on. NIBP on. 22:00 Awaiting ED provider evaluation. rr5 23:34 Javy Nguyen MD is Referral Physician. jmm 23:53 No provider procedures requiring assistance completed. Patient did not have IV access rr5 during this emergency room visit. Administered Medications: 22:22 Drug: Zofran (Ondansetron) 4 mg Route: PO; rr5 23:54 Follow up: Response: No adverse reaction rr5 22:23 Drug: morphine 4 mg {Note: rass 0.} Route: IM; Site: left deltoid; rr5 23:20 Follow up: Response: No adverse reaction; RASS: Alert and Calm (0) rr5 22:23 Drug: Clindamycin 600 mg Route: IM; Site: left gluteus; rr5 23:54 Follow up: Response: No adverse reaction rr5 Outcome: 23:35 Discharge ordered by MD. m 23:53 Discharged to home ambulatory. rr5 23:53 Condition: stable 23:53 Discharge instructions given to patient, Instructed on discharge instructions, follow up and referral plans. medication usage, Demonstrated understanding of instructions, follow-up care, medications, Prescriptions given X 3. 23:56 Patient left the ED. rr5 Signatures: Rock Oliveros PA PA [facility] Brady Talbot RN RN rr5 Kristine Olmos RN RN ca1 Lacy Ron am4 Corrections: (The following items were deleted from the chart) 22:00 21:20 Derm: Skin is intact, is healthy with good turgor, Skin is pink, warm \\T\\ dry. rr5 Wound noted left gluteal fold Wound is redness on the surrounding area warm to touch rr5
--- NOTE | 2021-01-29 23:36 | EDPHYS ---
Physician Documentation [facility] Name: Nesha Cooper Age: 45 yrs Sex: Female : 1975 Arrival Date: 01/29/2021 Time: 20:52 Bed 20 Private MD: ED Physician Chintan Camacho HPI: 01/29 21:25 This 45 yrs old Female presents to ER via Ambulatory with complaints of Snake jmm bite. 21:25 the patient presents with a swollen area of the left leg. Onset: The symptoms/episode jmm began/occurred gradually, 2 day(s) ago. Possible cause(s): unknown. Associated signs and symptoms: Pertinent positives: erythema, swelling, Pertinent negatives: fever. Modifying factors: the symptoms are alleviated by nothing, the symptoms are aggravated by nothing. This is a 45 year old female with a history of anxiety that presents to the ED with complaints of left thigh swelling. Unsure if it may be an insect or animal bite. Denies fever. . 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 Last tetanus immunization: up to date Flu vaccine is not up to date. - Social history:: Smoking status: Patient reports the use of cigarette tobacco products, smokes one-half pack cigarettes per day. ROS: 21:25 Constitutional: Negative for fever, chills, and weight loss, Cardiovascular: Negative jmm for chest pain, palpitations, and edema, Respiratory: Negative for shortness of breath, cough, wheezing, and pleuritic chest pain. 21:25 Skin: Positive for erythema. 21:25 All other systems are negative. Exam: 21:25 Constitutional: This is a well developed, well nourished patient who is awake, alert, jmm and in no acute distress. Head/Face: atraumatic. Eyes: EOMI, no conjunctival erythema appreciated ENT: Moist Mucus Membranes Neck: Trachea midline, Supple Chest/axilla: Normal chest wall appearance and motion. Cardiovascular: Regular rate and rhythm. No edema appreciated Respiratory: Normal respirations, no respiratory distress appreciated Abdomen/GI: Non distended, soft Back: Normal ROM 21:25 Skin: swelling, induration noted to the left thigh, ttp. 21:25 Neuro: Orientation: is normal, Mentation: is normal, Memory: is normal. 21:25 Psych: Behavior/mood is pleasant, cooperative. Vital Signs: 20:57 BP 126 / 83; Pulse 123; Resp 16 S; Temp 98.4(TE); Pulse Ox 100% on R/A; Weight 74.84 kg ca1 (M); Height 6 ft. 0 in. (182.88 cm) (R); Pain 10/10; 23:00 BP 135 / 89; Pulse 105; Resp 17; Pulse Ox 98% ; rr5 23:52 BP 121 / 75; Pulse 99; Resp 19; Pulse Ox 98% ; rr5 20:57 Body Mass Index 22.38 (74.84 kg, 182.88 cm) ca1 MDM: 21:25 Patient medically screened. [facility] 01/30 00:10 Data reviewed: vital signs, nurses notes. Counseling: I had a detailed discussion with rodney the patient and/or guardian regarding: the historical points, exam findings, and any diagnostic results supporting the discharge/admit diagnosis, the need for outpatient follow up, to return to the emergency department if symptoms worsen or persist or if there are any questions or concerns that arise at home. Refusal of service: The patient/guardian displays adequate decision making capability and despite a detailed discussion of alternatives, benefits, risks, and consequences refuses: Incision and Drainage. Administered Medications: 01/29 22:22 Drug: Zofran (Ondansetron) 4 mg Route: PO; rr5 23:54 Follow up: Response: No adverse reaction rr5 22:23 Drug: morphine 4 mg {Note: rass 0.} Route: IM; Site: left deltoid; rr5 23:20 Follow up: Response: No adverse reaction; RASS: Alert and Calm (0) rr5 22:23 Drug: Clindamycin 600 mg Route: IM; Site: left gluteus; rr5 23:54 Follow up: Response: No adverse reaction rr5 Disposition: 01/30 06:37 Co-signature as Attending Physician, Chintan Camacho MD. mh7 Disposition: 01/29/21 23:35 Discharged to Home. Impression: Cutaneous Abscess of left Thigh. - Condition is Stable. - Discharge Instructions: Skin Abscess. - Prescriptions for Clindamycin HCl 300 mg Oral Capsule - take 1 capsule by ORAL route every 6 hours for 10 days; 40 capsule. Bactrim DS 800- 160 mg Oral Tablet - take 1 tablet by ORAL route every 12 hours for 10 days; 20 tablet. orphenadrine citrate 100 mg Oral Tablet Sustained Release - take 1 tablet by ORAL route 2 times per day As needed; 20 tablet. - Medication Reconciliation Form, Thank You Letter, Antibiotic Education, Prescription Opioid Use, Work release form form. - Follow up: Javy Nguyen MD; When: 2 - 3 days; Reason: Recheck today's complaints, Continuance of care, Re-evaluation by your physician. Signatures: Rock Oliveros PA PA jmm Roque, Raymond, RN RN rr5 Kristine Olmos RN RN ca1 Chintan Camacho MD MD 7 Corrections: (The following items were deleted from the chart) 01/29 23:56 23:35 01/29/2021 23:35 Discharged to Home. Impression: Cutaneous Abscess of left Thigh. rr5 Condition is Stable. Forms are Medication Reconciliation Form, Thank You Letter, Antibiotic Education, Prescription Opioid Use. Follow up: Javy Nguyen; When: 2 - 3 days; Reason: Recheck today's complaints, Continuance of care, Re-evaluation by your physician. bhanu
[2021-01-30 00:39] VITALS: TEMP 98.4
[2021-01-30 00:40] VITALS: O2SAT 98
[2021-01-30 00:42] VITALS: BP 121/75
== END 2021-01-29 23:56 | disposition home or self-care (01) ==
LOC: ER 20:51
DX: L02.416 Cutaneous abscess of left lower limb (principal); Z85.828 Personal history of other malignant neoplasm of skin; F41.9 Anxiety disorder, unspecified; J45.909 Unspecified asthma, uncomplicated; F32.9 Major depressive disorder, single episode, unspecified; I10 Essential (primary) hypertension; F17.210 Nicotine dependence, cigarettes, uncomplicated
CPT/HCPCS: S0077

== ENCOUNTER 2022-01-04 21:57 | Emergency (ER) | payer OTHER, SELFPAY ==
--- OUTSIDE RECORDS SUMMARY | 2022-01-04 21:59 | XMS REPORT | Continuity of Care Document ---
:1975 Author Organization [facility] t Address [address] [place] [address] Dr. Caban [address] [place] [id number] Care Team Providers Name Role Phone KEI DELANEY Attending Clinician Unavailable Problems This patient has no known problems. Allergies, Adverse Reactions, Alerts Allergy Allergy Status Severity Reaction(s) Onset Inactive Treating Comm ents Source Name Type Date Date Clinician IODINE Drug Active Hives Univers AND Class - ity of IODIDE 00:00: [place] CONTAINI 00 [facility] PRODUCTS Medications This patient has no known medications. Procedures This patient has no known procedures. Encounters Start End Encounter Admission Attending Care Care Encounter Source Date/Time Date/Time Type Type Clinicians Facility Department ID 2020-02-12 2020-02-12 Outpatient Tyler DELANEY [facility] [id number] P-20 Univers 09:30:00 09:30:00 STEFANY [id number] [facility] 2020-02-12 2020-02-12 Outpatient Tyelr DELANEY [facility] [id number] Univers 09:30:00 09:30:00 STEFANY [facility] Results This patient has no known results.
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
[2022-01-05] MEDS ORDERED: metroNIDAZOLE 500 MG TABLET ONE (09:21)
[2022-01-05] MEDS ORDERED: CEFTRIAXONE 500 MG/VIAL ONE (09:21)
[2022-01-05] MEDS ORDERED: ONDANSETRON 4 MG (ODT) TAB ONE (09:22)
[2022-01-05] MEDS ORDERED: AZITHROMYCIN 250 MG TAB ONE (09:22)
[2022-01-05] MEDS ORDERED: LIDOCAINE 1% MPF 5 ML VIAL ONE (09:22)
[2022-01-05 12:25] VITALS: BP 117/82; TEMP 98; O2SAT 97
== END 2022-01-05 12:16 | disposition home or self-care (01) ==
LOC: ER 21:57
DX: T76.21XA Adult sexual abuse, suspected, initial encounter (principal); F17.210 Nicotine dependence, cigarettes, uncomplicated; Z85.828 Personal history of other malignant neoplasm of skin; Z88.1 Allergy status to other antibiotic agents; Z91.013 Allergy to seafood; Z91.048 Other nonmedicinal substance allergy status
CPT/HCPCS: 96372; 99284; J0696

== ENCOUNTER 2022-06-21 21:32 | Emergency (ER) | payer OTHER ==
--- OUTSIDE RECORDS SUMMARY | 2022-06-21 21:34 | XMS REPORT | Continuity of Care Document ---
:1975 Author Organization [facility] t Address [address] [place] [address] Care Team Providers Name Role Phone STEFANY DELANEY Attending Clinician Unavailable Problems This patient has no known problems. Allergies, Adverse Reactions, Alerts Allergy Allergy Status Severity Reaction(s) Onset Inactive Treating Comm ents Source Name Type Date Date Clinician IODINE Drug Active Hives Univers AND Class 7-09 ity of IODIDE 00:00: [place] [address] [employer] Medications This patient has no known medications. Procedures This patient has no known procedures. Encounters Start End Encounter Admission Attending Care Care Encounter Source Date/Time Date/Time Type Type Clinicians Facility Department ID 2020-02-12 2020-02-12 Outpatient Tyler DELANEY [facility] [id number] P-20 Univers 09:30:00 09:30:00 STEFANY [id number] [facility] 2020-02-12 2020-02-12 Outpatient Tyler DELANEY [facility] [id number] Univers 09:30:00 09:30:00 STEFANY [facility] Results This patient has no known results.
[2022-06-21 22:27] LABS: Hematocrit 35.8 % (36.0-45.0); Lymphocytes % 9.6 % (15.3-44.8); MCV 83.5 fL (80-100); MPV 7.8 fL (7.6-11.3); RBC Red Blood Cell Count 4.28 M/uL (3.86-4.86)
--- NOTE | 2022-06-21 22:38 | RAD REPORT ---
EXAM DESCRIPTION: RAD - Chest Single View - 06/21/2022 10:22 pm CLINICAL HISTORY: DYSPNEA Chest pain. COMPARISON: Chest Single View dated 12/20/2017; Chest Single View dated 12/26/2016; Chest Single View d ated 03/21/2016; Chest Single View dated 01/09/2016 FINDINGS: Portable technique limits examination quality. The lungs are grossly clear. The heart is normal in size. No displaced fractures. IMPRESSION: No acute intrathoracic process suspected.
[2022-06-21 22:42] LABS: Albumin 2.4 g/dL (3.4-5.0); Bilirubin Direct 0.3 mg/dL (0-0.2); Bilirubin Total 0.5 mg/dL (0.2-1.0); Potassium 3.6 mmol/L (3.5-5.1); Protein, Total 8.7 g/dL (6.4-8.2); Troponin High Sensitivity 3.9 pg/mL (<58.9)
[2022-06-21 22:47] LABS: Protime INR 1.32
[2022-06-21 23:12] LABS: SARS-COV-2 RT PCR NEGATIVE (NEGATIVE)
[2022-06-21] MEDS ORDERED: NA CHLORIDE 0.9% 1,000 ML ONE (23:14)
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
[2022-06-22 06:07] VITALS: TEMP 98.9
[2022-06-22 06:10] VITALS: O2SAT 99
[2022-06-22 06:12] VITALS: BP 108/73
--- NOTE | 2022-06-23 06:32 | EKG ---
Test Date: 2022-06-21 Test Time: 22:14:56 Benzene Still Utility Operator: RUBIO MEASUREMENT RESULTS: Intervals: Rate: 121 WI: 128 QRSD: 82 QT: 308 QTc: 437 [place]: P: 62 WI: 128 QRS: 72 T: 70 INTERPRETIVE STATEMENTS: Sinus tachycardia Otherwise normal ECG Compared to ECG 12/26/2016 16:58:51 Sinus rhythm no longer present Electronically Signed On 06-23-22 06:30:32 LSW by Dhruv Donahue
== END 2022-06-22 00:56 | disposition home or self-care (01) ==
LOC: ER 21:32
DX: F19.10 Other psychoactive substance abuse, uncomplicated (principal); E86.0 Dehydration; B34.9 Viral infection, unspecified; I10 Essential (primary) hypertension; Z88.1 Allergy status to other antibiotic agents; Z91.013 Allergy to seafood; Z91.048 Other nonmedicinal substance allergy status
CPT/HCPCS: 96361; 93005; 87040 ×2; 85025; 80048; 36415; 83735; 85610; 80076; 85730; 84484; 0240U; 71045; 96360; 99284; J7030

== ENCOUNTER 2022-09-29 18:31 | Emergency (ER) | payer OTHER ==
--- OUTSIDE RECORDS SUMMARY | 2022-09-29 18:33 | XMS REPORT | Continuity of Care Document ---
:1975 Author Organization [facility] t Address [address] [place] [address] Care Team Providers Name Role Phone PCP, PATIENT DOES NOT HAVE A Primary Care Physician UnavailJessica Monique Attending Clinician JESSICA MIRELES Attending Clinician Unavailable STEFANY DELANEY Attending Clinician Unavailable Payers Payer Name Policy Type Policy Number Effective Date Expiration Date S augustine [employer] [id number] 2022 OUT OF NETWORK 00:00:00 Problems Condition Condition Condition Status Onset Resolution Last Treating Co mments Source Name Details Category Date Date Treatment Clinician Date Galactorrh Galactorrh Disease Active U nivers ea ea 8 ity of 00:00: [place] 00 Medical Branch Poor Poor Disease Active Univers dental dental 04-07 ity of hygiene hygiene 00:00: [place] [facility] History of History of Disease Active U nivers drug abuse drug abuse 03-18 it y of 00:00: Medical Branch Cervical Cervical Disease Active Unive rs lesion lesion 03-18 ity of 00:00: [place] [facility] Anxiety Anxiety Disease Active Univers and and 03-18 ity of depression [place]: [place] [facility] Allergies, Adverse Reactions, Alerts Allergy Allergy Status Severity Reaction(s) Onset Inactive Treating Comm ents Source Name Type Date Date Clinician IODINE Drug Active Hives Univers AND Class 02-19 ity of IODIDE 00:00: [place] CONTAINI 00 Medical NG Branch PRODUCTS Iodine Propensi Active Swelling Univer s And ty to 02-19 ity of Iodide adverse 00:00: [place] Containi reaction 00 Medica l ng s Branch Products Social History Social Habit Start Date Stop Date Quantity Comments Source History of tobacco Cigarette Smoker [facility] Exposure to 2022-06-14 2022-06-24 Not sure University of SARS-CoV-2 (event) 00:00:00 00:22:00 [facility] Alcohol intake 2022-06-24 2022-06-24 0 /d University of 00:00:00 00:00:00 [facility] Cigarettes smoked 2016-03-18 2016-03-18 Univers ity of current (pack per 00:00:00 00:00:00 [facility] ) - Reported Branch Cigarette 2016-03-18 2016-03-18 University of pack-years 00:00:00 00:00:00 [facility] Tobacco use and 2016-03-18 2016-03-18 User of smokeless Un iversity of exposure 00:00:00 00:00:00 tobacco [facility] Tobacco Comment 2016-03-18 2016-03-18 [place] Universi ty of 00:00:00 00:00:00 [facility] Sex Ass[birth year] At [birth year] Universit y of 00:00:00 00:00:00 [facility] Smoking Status Start Date Stop Date Source Smokes tobacco daily 2016-03-18 00:00:00 Univers ity of [facility] Medications Ordered Filled Start Stop Current Ordering Indication Dosage Frequency Signature Comments Components Source Medication Medication Date Date Medication? Clinician (SIG) Name Name amoxicillin 2021-08 1{tbl} 1 tablet, Univers -clavulanat 08-24 Oral, ity of e 07:45: 07:12 ONCE, 1 [place] (AUGMENTIN) 00 :00 dose, On Medi chilango 875-125 mg Mon [place] per tablet 06/24/22 1 tablet at 0145, CHRISTIAN
Re ason for Anti-Infec tive: Documented Infection< br>Documen blake Infection Site: HEENT
D uration of Therapy: Other (see Comments) dexamethaso 2021-08 10mg 10 mg, Uni vers ne sod phos 08-24 Intramuscu i ty of PF 07:00: 07:12 lar, ONCE, [place] injection 00 :00 1 dose, On Medi chilango 10 mg Fri Branch 06/24/22 at 0100, 1 mL ketorolac 2021-08- No 30mg 30 mg, Unive rs (TORADOL) 08-24 Intramuscu ity of injection 06:57: 07:12 lar, ONCE, [place] 30 mg 00 :00 1 dose, On Medical Fri Branch 06/24/22 at 0100, CHRISTIAN ibuprofen 2021-08 Yes [id number] 600mg Take 1 U nivers 600 mg -11 tablet by ity of tablet 00:00: mouth [place] 00 every 8 Medical (eight) Branch hours as needed for Pain (scale 4-6). amoxicillin 2021-08- No [id number] 1{tbl} Take 1 Univers -clavulanat 08-24 tablet by it y of e 875-125 00:00: 05:59 mouth in [place] as mg per 00 :00 the Medical tablet morning Branch and 1 tablet in the evening. Do all this for 10 days. amoxicillin 2021-08 No [id number] 1{tbl} Take 1 Univers -clavulanat 08-24 tablet by it y of e 875-125 00:00: 00:00 mouth [place] mg per 00 :00 every 12 Medical tablet (twelve) Branch hours. doxycycline 2017-0 Yes 100mg Take 100 U nivers (MONODOX) 8-24 mg by ity of 100 mg 15:24: mouth 2 [place] capsule 09 (two) Medical times Branch daily. Vital Signs Vital Name Observation Time Observation Value Comments Source Systolic blood 2022-06-24 06:28:00 111 mm[Hg] Univer sity of pressure [facility] Diastolic blood 2022-06-24 06:28:00 85 mm[Hg] [facility] [place] [facility] Heart rate 2022-06-24 06:28:00 103 /min [facility] Body temperature 2022-06-24 06:28:00 36.56 [place] [facility] [place] [facility] Res[facility] rate 2022-06-24 06:28:00 16 /min [facility] Body height 2022-06-24 06:28:00 182.9 cm [facility] Body weight 2022-06-24 06:28:00 58.741 kg [facility] BMI 2022-06-24 06:28:00 17.56 kg/m2 [facility] Oxygen saturation in 2022-06-24 06:28:00 97 /min University Arterial blood by [facility] Pulse oximetry Branch Procedures Procedure Date / Time Performed Performing Clinician Sour e POCT TEST 2022-06-24 07:11:00 Jessica Mireles [facility] RAPID STREP SCREEN 2022-06-24 06:34:00 Jessica Mireles [facility] FOR GROUP A [facility] RAPID INFLUENZA A/B 2022-06-24 06:34:00 Jessica Mireles [facility] COVID-19 (ID NOW 2022-06-24 06:34:00 Jessica Mireles [facility] RAPID TESTING) [facility] NOTICE OF PRIVACY 2022-06-24 06:14:13 Doctor Unassigned, No Univ [facility] PRACTICES Name [facility] CONSENT/REFUSAL FOR 2022-06-24 06:12:51 Doctor Unassigned, No Un [facility] DIAGNOSIS AND Name [facility] TREATMENT Encounters Start End Encounter Admission Attending Care Care Encounter Source Date/Time Date/Time Type Type Clinicians Facility Department ID 2022-06-24 2022-06-24 [facility] [id number] Univers 00:35:00 02:01:00 Jessica ALEMAN [id number] i [facility] [id number] [facility] [id number] [facility] 084 Branch 2022-06-24 2022-06-24 Emergency X [facility] ERT [id number] Univers 00:35:00 02:01:00 JESSICA [facility] 2020-02-12 2020-02-12 Outpatient [place] DELANEY [facility] [id number] Univers 09:30:00 09:30:00 STEFANY [id number] [facility] 2020-02-12 2020-02-12 Outpatient [place] DELANEY [facility] [id number] Univers 09:30:00 09:30:00 STEFANY [facility] Results Test Description Test Time Test Comments Results Result Comments Source POCT TEST 2022-06-24 07:11:00 Test Item Value Reference Range Interpretation Comme nts POCT PREG (test code = 1605) Negative On board controls acceptable with C Line (test code = 3574) Positiv e POCT PREG LOT # (test code = 3575) [id number] POCT PREG TEST DATE (test code = 3576) 11/12/2023 Lab Interpretation (test code = 23778-3) [facility]
--- NOTE | 2022-09-29 21:07 | RAD REPORT ---
EXAM DESCRIPTION: RAD - Forearm Left - 09/29/2022 8:37 pm CLINICAL HISTORY: Left forearm pain FINDINGS: No fracture is seen No bony abnormality noted
--- NOTE | 2022-09-29 21:32 | ER ---
Nurse's Notes [facility] Name: Nesha Cooper Age: 47 yrs Sex: Female : 1975 Arrival Date: 09/29/2022 Time: 18:35 Bed 20 Private MD: Diagnosis: Other specified sprain of left wrist;Other sprain of left elbow;Left elbow forearm and wrist pain Presentation: 09/29 18:35 Chief complaint: EMS states: "pt was walking and didn't see the step, she fell [facility] standing and caught herself with her left hand. Complains of severe pain in left hand, wrist, and elbow". Coronavirus screen: Vaccine status: Patient reports receiving the 2nd dose of the covid vaccine. Ebola Screen: No symptoms or risks identified at this time. Initial Sepsis Screen: Does the patient meet any 2 criteria? No. Patient's initial sepsis screen is negative. Does the patient have a suspected source of infection? No. Patient's initial sepsis screen is negative. Risk Assessment: Do you want to hurt yourself or someone else? Patient reports no desire to harm self or others. Onset of symptoms was September 29, 2022. 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 - Social history:: Smoking status: Patient reports the use of cigarette tobacco products, smokes one-half pack cigarettes per day. Screenin:00 [facility] ED Fall Risk Assessment (Adult) History of falling in the last 3 months, pf1 including since admission Yes- single mechanical fall (1 pt) Confusion or Disorientation No (0 pts) Intoxicated or Sedated No (0 pts) Impaired Gait No (0 pts) Mobility Assist Device Used No (0 pt) Altered Elimination No (0 pt) Score/Fall Risk Level 0 - 2 = Low Risk Oriented to surroundings, Maintained a safe environment, Educated pt \\T\\ family on fall prevention, incl call for assistance when getting out of bed, Assessed \\T\\ reinforced patient's understanding of fall precautions, Provided non-skid footwear, Hourly rounding (assess needs \\T\\ fall precautionary measures) done, Used ambulatory aids as needed (educated on \\T\\ assisted with), Used gait belt as appropriate. Abuse screen: Denies threats or abuse. Nutritional screening: No deficits noted. Tuberculosis screening: No symptoms or risk factors identified. Assessment: 19:00 General: Appears in no apparent distress. uncomfortable, well groomed, well developed, pf1 Behavior is calm, cooperative, appropriate for age. 19:00 Pain: Complains of pain in left wrist, arm and elbow Pain currently is 10 out of 10 on pf1 a pain scale. Neuro: No deficits noted. Level of Consciousness is awake, alert, obeys commands, Oriented to person, place, time, situation. Cardiovascular: No deficits noted. Capillary refill < 3 seconds Patient's skin is warm and dry. Respiratory: No deficits noted. Airway is patent Trachea midline Respiratory effort is even, unlabored, Respiratory pattern is regular, symmetrical. GI: No deficits noted. No signs and/or symptoms were reported involving the gastrointestinal system. : No deficits noted. No signs and/or symptoms were reported regarding the genitourinary system. EENT: No deficits noted. No signs and/or symptoms were reported regarding the EENT system. Derm: No deficits noted. No signs and/or symptoms reported regarding the dermatologic system. Musculoskeletal: Reports pain in left arm,elbow and wrist. 19:00 General: Patient stated she fell when stepping off the concrete step and landed onto pf1 the concrete while at [employer]. Patient C/O left wrist, left arm and left elbow pain of 10, patient has a preformed splint in place to left arm/wrist per EMS.. 20:00 Reassessment: Patient appears in no apparent distress at this time. No changes from pf1 previously documented assessment. Patient and/or family updated on plan of care and expected duration. Pain level reassessed. Patient states symptoms have not improved. 21:00 Reassessment: Patient appears in no apparent distress at this time. No changes from pf1 previously documented assessment. Patient and/or family updated on plan of care and expected duration. Pain level reassessed. Patient is alert, oriented x 3, equal unlabored respirations, skin warm/dry/pink. Patient states symptoms have not improved. Vital Signs: 18:35 BP 135 / 95; Pulse 95; Resp 18; Temp 98.6; Pulse Ox 100% ; Weight 61.23 kg; Height 6 mb9 ft. 0 in. (182.88 cm); Pain 10/10; 19:00 BP 120 / 89; Pulse 91; Resp 16; Pulse Ox 98% on R/A; Pain 10/10; pf1 20:00 BP 139 / 98; Pulse 92; Resp 16; Pulse Ox 100% on R/A; Pain 10/10; pf1 21:00 BP 136 / 94; Pulse 83; Resp 16; Pulse Ox 98% on R/A; Pain 10/10; pf1 18:35 Body Mass Index 18.31 (61.23 kg, 182.88 cm) mb9 ED Course: 18:35 Patient arrived in ED. mb9 18:38 Triage completed. mb9 18:38 Arm band placed on. mb9 19:00 Patient has correct armband on for positive identification. Bed in low position. Call pf1 light in reach. 19:16 Gama Martin MD is Attending Physician. kdr 19:16 Madisyn Elaine, RN is Primary Nurse. db 19:31 Ondina kramer, BRENNEN is Primary Nurse. pf1 20:39 Forearm Left XRAY In Process Unspecified. EDMS 21:45 Sling \\T\\ swathe to left arm. pf1 21:56 No provider procedures requiring assistance completed. Patient did not have IV access pf1 during this emergency room visit. Administered Medications: 21:35 Drug: [place] (HYDROcodone-acetaminophen) 10 mg-325 mg 1 tabs Route: PO; pf1 21:53 Follow up: Response: No adverse reaction; Pain is unchanged, physician notified; RASS: pf1 Alert and Calm (0) Medication: 21:57 VIS not applicable for this client. pf1 Outcome: 21:32 Discharge ordered by . kdr 21:55 Discharged to home ambulatory. pf1 21:55 Condition: stable 21:55 Discharge instructions given to patient, Instructed on discharge instructions, follow up and referral plans. Demonstrated understanding of instructions, follow-up care. 21:57 Patient left the ED. pf1 Signatures: Dispatcher [employer] EDMS Gama Martin MD MD kdr Benton, Danielle, RN RN db Kathy Singh RN RN mb9 Ondina kramer RN RN pf1
--- NOTE | 2022-09-29 21:32 | EDPHYS ---
Physician Documentation [facility] Name: Nesha Cooper Age: 47 yrs Sex: Female : 1975 Arrival Date: 09/29/2022 Time: 18:35 Bed 20 Private MD: ED Physician Gama Martin HPI: 09/29 23:10 This 47 yrs old Female presents to ER via EMS with unknown complaint. kdr 23:10 This 47 yrs old Female presents to ER via EMS with complaints of Left upper extremity kdr pain. 23:10 Patient states that she was walking from [employer] after getting a drink when she kdr apparently missed a step on a curb and fell catching herself with her left upper extremity. She now has pain in her left hand, wrist and elbow. On initial examination, there is no obvious deformity or swelling.. Onset: The symptoms/episode began/occurred suddenly, just prior to arrival. Severity of symptoms: At their worst the symptoms were moderate in the emergency department the symptoms are unchanged. The patient has not experienced similar symptoms in the past. The patient has not recently seen a physician. 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 - Social history:: Smoking status: Patient reports the use of cigarette tobacco products, smokes one-half pack cigarettes per day. ROS: 23:10 Constitutional: Negative for fever, chills, and weight loss, Eyes: Negative for injury, kdr pain, redness, and discharge, Neck: Negative for injury, pain, and swelling, Cardiovascular: Negative for chest pain, palpitations, and edema, Respiratory: Negative for shortness of breath, cough, wheezing, and pleuritic chest pain, Abdomen/GI: Negative for abdominal pain, nausea, vomiting, diarrhea, and constipation, Back: Negative for injury and pain, : Negative for injury, bleeding, discharge, and swelling, Skin: Negative for injury, rash, and discoloration, Neuro: Negative for headache, weakness, numbness, tingling, and seizure activity. Psych: Negative for depression, anxiety, suicide ideation, homicidal ideation, and hallucinations, Allergy/Immunology: Negative for hives, rash, and allergies, Endocrine: Negative for neck swelling, polydipsia, polyuria, polyphagia, and marked weight changes, Hematologic/Lymphatic: Negative for swollen nodes, abnormal bleeding, and unusual bruising. 23:10 MS/extremity: Positive for injury or acute deformity, decreased range of motion, pain, tenderness, of the left arm. Exam: 23:10 Constitutional: This is a well developed, well nourished patient who is awake, alert, kdr and in no acute distress. Head/Face: Normocephalic, atraumatic. Eyes: Pupils equal round and reactive to light, extra-ocular motions intact. Lids and lashes normal. Conjunctiva and sclera are non-icteric and not injected. Cornea within normal limits. Periorbital areas with no swelling, redness, or edema. Neck: Trachea midline, no thyromegaly or masses palpated, and no cervical lymphadenopathy. Supple, full range of motion without nuchal rigidity, or vertebral point tenderness. No Meningismus. Chest/axilla: Normal chest wall appearance and motion. Nontender with no deformity. No lesions are appreciated. Cardiovascular: Regular rate and rhythm with a normal S1 and S2. No gallops, murmurs, or rubs. Normal PMI, no JVD. No pulse deficits. Respiratory: Lungs have equal breath sounds bilaterally, clear to auscultation and percussion. No rales, rhonchi or wheezes noted. No increased work of breathing, no retractions or nasal flaring. Abdomen/GI: Soft, non-tender, with normal bowel sounds. No distension or tympany. No guarding or rebound. No evidence of tenderness throughout. Back: No spinal tenderness. No costovertebral tenderness. Full range of motion. Skin: Warm, dry with normal turgor. Normal color with no rashes, no lesions, and no evidence of cellulitis. Neuro: Awake and alert, GCS 15, oriented to person, place, time, and situation. Cranial nerves II-XII grossly intact. Motor strength 5/5 in all extremities. Sensory grossly intact. Cerebellar exam normal. Normal gait. Psych: Awake, alert, with orientation to person, place and time. Behavior, mood, and affect are within normal limits. 23:10 Musculoskeletal/extremity: Extremities: grossly normal except: noted in the left arm: decreased ROM, pain, tenderness, While the patient complains of pain and discomfort when touched anywhere from below the mid humerus, there is no obvious deformity or swelling distal to the mid humerus on the left side.. Vital Signs: 18:35 BP 135 / 95; Pulse 95; Resp 18; Temp 98.6; Pulse Ox 100% ; Weight 61.23 kg; Height 6 mb9 ft. 0 in. (182.88 cm); Pain 10/10; 19:00 BP 120 / 89; Pulse 91; Resp 16; Pulse Ox 98% on R/A; Pain 10/10; pf1 20:00 BP 139 / 98; Pulse 92; Resp 16; Pulse Ox 100% on R/A; Pain 10/10; pf1 21:00 BP 136 / 94; Pulse 83; Resp 16; Pulse Ox 98% on R/A; Pain 10/10; pf1 18:35 Body Mass Index 18.31 (61.23 kg, 182.88 cm) mb9 MDM: 21:32 Patient medically screened. kdr 23:10 Data reviewed: vital signs, radiologic studies. I considered the following discharge kdr prescriptions or medication management in the emergency department Medications were administered in the Emergency Department. See OCT. 09/29 19:18 Order name: Forearm Left XRAY; Complete Time: 21:27 kdr 09/29 21:28 Order name: Sling; Complete Time: 21:44 kdr Administered Medications: 21:35 Drug: [place] (HYDROcodone-acetaminophen) 10 mg-325 mg 1 tabs Route: PO; pf1 21:53 Follow up: Response: No adverse reaction; Pain is unchanged, physician notified; RASS: pf1 Alert and Calm (0) Disposition Summary: 09/29/22 21:32 Discharge Ordered Location: Home kdr Problem: new kdr Symptoms: have improved kdr Condition: Stable kdr Diagnosis - Other specified sprain of left wrist kdr - Other sprain of left elbow kdr - Left elbow forearm and wrist pain kdr Followup: kdr - With: Private Physician - When: 2 - 3 days - Reason: If symptoms return, Further diagnostic work-up, Recheck today's complaints, Continuance of care, Re-evaluation by your physician Forms: - Medication Reconciliation Form kdr - Thank You Letter kdr - Antibiotic Education kdr - Prescription Opioid Use kdr Signatures: Dispatcher [employer] EDMS Gama Martin MD MD kdr Kathy Singh RN RN mb9 Ondina kramer RN RN pf1 Corrections: (The following items were deleted from the chart) 19:50 19:19 Wrist Left 3 View+RAD.RAD.BRZ ordered. EDMS EDMS 19:50 19:19 Elbow Left 3 View+RAD.RAD.BRZ ordered. EDMS EDMS
[2022-09-29] MEDS ORDERED: HYDROCODONE/APAP 10/325 TAB ONE (21:39)
[2022-09-29 22:10] VITALS: TEMP 98.6
[2022-09-29 22:31] VITALS: BP 120/89; O2SAT 98
== END 2022-09-29 21:57 | disposition home or self-care (01) ==
LOC: ER 18:31
DX: S53.492A Other sprain of left elbow, initial encounter (principal); S63.592A Other specified sprain of left wrist, initial encounter; M79.632 Pain in left forearm; M25.532 Pain in left wrist; F17.210 Nicotine dependence, cigarettes, uncomplicated; I10 Essential (primary) hypertension; Z88.1 Allergy status to other antibiotic agents; Z91.048 Other nonmedicinal substance allergy status
CPT/HCPCS: 99284

== ENCOUNTER 2023-03-08 19:13 | Emergency (ER) | payer OTHER ==
[2023-03-08] MEDS ORDERED: ONDANSETRON 4 MG/2 ML VIAL ONE (19:56)
[2023-03-08] MEDS ORDERED: DICYCLOMINE HCL 20 MG/2 ML AMP IM ONE (19:56)
[2023-03-08] MEDS ORDERED: FAMOTIDINE 20 MG/2 ML VIAL IV ONE (19:56)
[2023-03-08] MEDS ORDERED: NA CHLORIDE 0.9% 1,000 ML ONE (19:57)
--- OUTSIDE RECORDS SUMMARY | 2023-03-08 19:59 | XMS REPORT | Continuity of Care Document ---
:1975 Author Organization [facility] t Address [address] [place] [id number] [place] [id number] Care Team Providers Name Role Phone PCP, PATIENT DOES NOT HAVE A Primary Care Physician UnavailJessica Monique Attending Clinician JESSICA MIRELES Attending Clinician Unavailable STEFANY DELANEY Attending Clinician Unavailable Payers Payer Name Policy Type Policy Number Effective Date Expiration Date Keiry bradshaw [employer] [id number] 2022 OUT OF NETWORK 00:00:00 Problems Condition Condition Condition Status Onset Resolution Last Treating Co mments Source Name Details Category Date Date Treatment Clinician Date Galactorrh Galactorrh Disease Active U nivers ea ea 04-07 ity of 00:00: [place] 00 [facility] [place] Poor Poor Disease Active Univers dental dental 04-07 ity of hygiene hygiene 00:00: [facility] History of History of Disease Active U nivers drug abuse drug abuse 03-18 it y of 00:00: [facility] Cervical Cervical Disease Active Unive rs lesion lesion 03-18 ity of 00:00: [place] [facility] Anxiety Anxiety Disease Active Univers and [place] 8 [place] [facility] Allergies, Adverse Reactions, Alerts Allergy Allergy Status Severity Reaction(s) Onset Inactive Treating Comm ents Source Name Type Date Date Clinician IODINE Drug Active Hives Univers AND Class 02-19 ity of IODIDE 00:00: [place] CONTAINI 00 Medical Branch PRODUCTS Iodine Propensi Active Swelling Univer s And ty to 02-19 ity of Iodide adverse 00:00: [place] Containi reaction 00 Medica l ng s Branch Products Social History Social Habit Start Date Stop Date Quantity Comments Source History of tobacco Cigarette Smoker University [facility] Exposure to 2022-06-14 2022-06-24 Not sure University of SARS-CoV-2 (event) 00:00:00 00:22:00 [facility] Alcohol intake 2022-06-24 2022-06-24 0 /d University of 00:00:00 00:00:00 [facility] Cigarettes smoked 2016-03-18 2016-03-18 Univers ity of current (pack per 00:00:00 00:00:00 [facility] ) - Reported Branch Cigarette 2016-03-18 2016-03-18 University of pack-years 00:00:00 00:00:00 [facility] Tobacco use and 2016-03-18 2016-03-18 User of smokeless Un iversity of exposure 00:00:00 00:00:00 tobacco [facility] Tobacco Comment 2016-03-18 2016-03-18 Pablo Universi ty of 00:00:00 00:00:00 [facility] Sex Ass[birth year] At [birth year] Universit y of 00:00:00 00:00:00 [facility] Smoking Status Start Date Stop Date Source Smokes tobacco daily 2016-03-18 00:00:00 Univers ity of [facility] Medications Ordered Filled Start Stop Current Ordering Indication Dosage Frequency Signature Comments Components Source Medication Medication Date Date Medication? Clinician (SIG) Name Name amoxicillin 2021-08 1{tbl} 1 tablet, Univers -clavulanat 08-24 Oral, ity of e 07:45: 07:12 ONCE, 1 [place] (AUGMENTIN) 00 :00 dose, On Medi chilango 875-125 mg Mon per tablet 06/24/22 1 tablet at 0145, CHRISTIAN
Re ason for Anti-Infec tive: Documented Infection< br>Documen blake Infection Site: HEENT
D uration of Therapy: Other (see Comments) dexamethaso 2021-08 No 10mg 10 mg, Uni vers ne sod phos 08-24 Intramuscu i ty of PF 07:00: 07:12 lar, ONCE, [place] injection 00 :00 1 dose, On Medi chilango 10 mg Fri Branch 06/24/22 at 0100, 1 mL ketorolac 2022-1 2022- No 30mg 30 mg, Unive rs (TORADOL) 08-24 Intramuscu ity of injection 06:57: 07:12 lar, ONCE, [place] 30 mg 00 :00 1 dose, On Medical Fri Branch 06/24/22 at 0100, CHRISTIAN ibuprofen 2021-08 Yes [id number] 600mg Take 1 U nivers 600 mg -11 tablet by ity of tablet 00:00: mouth [place] 00 every 8 Medical (eight) Branch hours as needed for Pain (scale 4-6). amoxicillin 2021-08- No [id number] 1{tbl} Take 1 Univers -clavulanat 08-24 tablet by it y of e 875-125 00:00: 05:59 mouth in [place] as mg per 00 :00 the Medical tablet morning Branch and 1 tablet in the evening. Do all this for 10 days. amoxicillin 2021-08- No [id number] 1{tbl} Take 1 Univers -clavulanat 08-24 tablet [...] Source Systolic blood 2022-06-24 06:28:00 111 mm[Hg] [facility] Diastolic blood 2022-06-24 06:28:00 85 mm[Hg] [facility] Heart rate 2022-06-24 06:28:00 103 /min [facility] Body temperature 2022-06-24 06:28:00 36.56 [place] [facility] Respiratory rate 2022-06-24 06:28:00 16 /min [facility] Body height 2022-06-24 06:28:00 182.9 cm [facility] Body weight 2022-06-24 06:28:00 58.741 kg [facility] BMI 2022-06-24 06:28:00 17.56 kg/m2 [facility] Oxygen saturation in 2022-06-24 06:28:00 97 /min University Arterial blood by [facility] Pulse oximetry Branch Procedures Procedure Date / Time Performed Performing Clinician [facility] e POCT TEST 2022-06-24 07:11:00 Jessica Mireles [facility] RAPID STREP SCREEN 2022-06-24 06:34:00 Jessica Mireles [facility] FOR GROUP A [facility] RAPID INFLUENZA A/B 2022-06-24 06:34:00 Jessica Mireles [facility] COVID-19 (ID NOW 2022-06-24 06:34:00 Jessica Mireles [facility] RAPID TESTING) [facility] NOTICE OF PRIVACY 2022-06-24 06:14:13 Doctor Unassigned, No Univ [facility] PRACTICES Name [facility] CONSENT/REFUSAL FOR 2022-06-24 06:12:51 [facility]assigned, [facility] AND Name [facility] TREATMENT Encounters Start End Encounter Admission Attending Care Care Encounter Source Date/Time Date/Time Type Type Clinicians Facility Department ID 2022-06-24 2022-06-24 Emergency [facility] [id number] Univers 00:35:00 02:01:00 Jessica ALEMAN [id number] i [facility] [id number] [facility] [id number] [facility] 084 Branch 2022-06-24 2022-06-24 Emergency X [facility] ERT [id number] Univers 00:35:00 02:01:[address] [facility] 2020-02-12 2020-02-12 Outpatient [place] DELANEY [facility] [id number] Univers 09:30:00 09:30:[id number] [facility] 2020-02-12 2020-02-12 Outpatient Tyler DELANEY [facility] [id number] Univers 09:30:00 09:30:[address] [facility] Results Test Description Test Time Test Comments Results Result Comments Source POCT TEST 2022-06-24 07:11:00 Test Item Value Reference Range Interpretation Comme nts POCT PREG (test code = 1605) Negative On board controls acceptable with C Line (test code = 3574) Positiv e POCT PREG LOT # (test code = 3575) [id number] POCT PREG TEST DATE (test code = 3576) 11/12/2023 Lab Interpretation (test code = 81461-8) [facility]
[2023-03-08 20:12] LABS: Absolute Lymphocytes (CBC) 1.5 K/uL (0.7-4.9); Hematocrit 44.9 % (36.0-45.0); Lymphocytes % 16.4 % (15.3-44.8); MCV 86.8 fL (80-100); MPV 8.5 fL (7.6-11.3); RBC Red Blood Cell Count 5.17 M/uL (3.86-4.86)
[2023-03-08 20:29] LABS: Albumin 3.4 g/dL (3.4-5.0); Bilirubin Total 0.3 mg/dL (0.2-1.0)
[2023-03-08 20:30] LABS: Potassium 4.2 mEq/L (3.5-5.1)
--- NOTE | 2023-03-08 21:20 | ER ---
Nurse's Notes [facility] Name: Nesha Cooper Age: 47 yrs Sex: Female : 1975 Arrival Date: 03/08/2023 Time: 19:13 Bed 15 Private MD: Diagnosis: Nausea with vomiting, unspecified;Diarrhea, unspecified Presentation: 03/08 19:29 Chief complaint: Patient states: abdominal pain, vomiting and diarrhea after eating cm10 today. Pt states that she has had 2 episodes of vomiting and 4 episodes of diarrhea. Pt actively vomiting during triage. Pt also complaining of abdominal pain. Coronavirus screen: Vaccine status: Patient reports being unvaccinated. Client denies travel out of the [place] in the last 14 days. Ebola Screen: No symptoms or risks identified at this time. Initial Sepsis Screen: Does the patient meet any 2 criteria? No. Patient's initial sepsis screen is negative. Does the patient have a suspected source of infection? No. Patient's initial sepsis screen is negative. Risk Assessment: Do you want to hurt yourself or someone else? Patient reports no desire to harm self or others. Onset of symptoms was March 08, 2023. 19:29 Method Of Arrival: Wheelchair cm10 19:29 Acuity: DAREK 3 cm10 Triage Assessment: 19:31 General: Appears in no apparent distress. uncomfortable, Behavior is calm, cooperative. 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 - Social history:: Smoking status: Patient reports the use of cigarette tobacco products, denies chronic smoking, but will smoke occasionally, Reported history of juuling and/or vaping. Patient uses street drugs, marijuana. Screenin:36 [facility] ED Fall Risk Assessment (Adult) History of falling in the last 3 months, ll3 including since admission No falls in past 3 months (0 pts) Confusion or Disorientation No (0 pts) Intoxicated or Sedated No (0 pts) Impaired Gait No (0 pts) Mobility Assist Device Used No (0 pt) Altered Elimination No (0 pt) Score/Fall Risk Level 0 - 2 = Low Risk Oriented to surroundings, Maintained a safe environment, Educated pt \\T\\ family on fall prevention, incl call for assistance when getting out of bed. Abuse screen: Denies threats or abuse. Denies injuries from another. Nutritional screening: No deficits noted. Tuberculosis screening: No symptoms or risk factors identified. Assessment: 19:36 General: Appears uncomfortable, Behavior is calm, cooperative. Pain: Complains of pain ll3 in abdomen Pain does not radiate. Pain currently is 10 out of 10 on a pain scale. Quality of pain is described as crampy, Pain began 4 hours ago. Is continuous. GI: Abdomen is round non-distended, Pt is actively vomiting undigested food, Stools are reported to be diarrhea. Reports lower abdominal pain, upper abdominal pain, diarrhea, nausea, vomiting, since 3 PM. Derm: Skin is pink, warm \\T\\ dry. Vital Signs: 19:29 BP 102 / 77; Pulse 91; Resp 16; Temp 98.2; Pulse Ox 98% on R/A; Weight 13.61 kg; Height cm10 6 ft. 0 in. ; Pain 10/10; 20:45 BP 98 / 69; Pulse 79; Resp 16; Pulse Ox 100% on R/A; ll3 21:11 BP 119 / 83; Pulse 87; Resp 16; Pulse Ox 100% on R/A; ll3 19:29 Body Mass Index 4.07 (13.61 kg, 182.88 cm) cm10 19:29 Pain Scale: Adult cm10 ED Course: 19:18 Patient arrived in ED. es 19:18 Luis Torrez PA is PHCP. cp 19:18 Luis Bernal MD is Attending Physician. cp 19:30 Triage completed. cm10 19:31 Arm band placed on Patient placed in an exam room, on a stretcher. cm10 19:36 Patient has correct armband on for positive identification. Bed in low position. Call ll3 light in reach. Side rails up X 1. 19:53 Initial lab(s) drawn, by me, sent to lab. Inserted saline lock: 22 gauge in right cm10 forearm, using aseptic technique. Blood collected. 19:54 CBC with Diff Sent. cm10 19:54 CMP Sent. cm10 19:54 Lipase Sent. cm10 21:28 No provider procedures requiring assistance completed. IV discontinued, intact, ll3 bleeding controlled, No redness/swelling at site. Pressure dressing applied. Administered Medications: 19:58 Drug: Dicyclomine IM 20 mg Route: IM; Site: left gluteus; ll3 21:12 Follow up: Response: No adverse reaction; Marked relief of symptoms ll3 19:59 Drug: NS 0.9% IV 1000 ml Route: IV; Rate: 1 bolus; Site: right forearm; ll3 21:28 Follow up: Response: No adverse reaction; IV Status: Completed infusion; IV Intake: ll3 1000ml 19:59 Drug: Famotidine IVP 20 mg Route: IVP; Site: right forearm; ll3 21:12 Follow up: Response: No adverse reaction; Marked relief of symptoms ll3 19:59 Drug: Ondansetron IVP 4 mg Route: IVP; Site: right forearm; ll3 21:12 Follow up: Response: No adverse reaction; Marked relief of symptoms; Nausea is decreasedll3 Medication: 21:29 VIS not applicable for this client. ll3 Intake: 21:28 IV: 1000ml; Total: 1000ml. ll3 Outcome: 21:20 Discharge ordered by . kimberlee 21:28 Discharged to home ambulatory, with significant other. ll3 21:28 Condition: stable 21:28 Discharge instructions given to patient, Instructed on discharge instructions, follow up and referral plans. medication usage, Demonstrated understanding of instructions, follow-up care, medications, Prescriptions given X 2. 21:29 Patient left the ED. ll3 Signatures: Shireen Lopez Corey, PA PA cp Loubet, Lynsea, RN RN 3 Patience Ron RN RN cm10
--- NOTE | 2023-03-08 21:20 | EDPHYS ---
Physician Documentation [facility] Name: Nesha Cooper Age: 47 yrs Sex: Female : 1975 Arrival Date: 03/08/2023 Time: 19:13 Bed 15 Private MD: ED Physician Luis Bernal HPI: 03/08 19:50 This 47 yrs old Female presents to ER via Wheelchair with complaints of cp Nausea/Vomiting, Dizziness, Abdominal Pain, BLOTED. 19:50 The patient presents to the emergency department with nausea, with "dry heaves", cp vomiting, that is continuous, diarrhea, that is continuous, abdominal pain. Onset: The symptoms/episode began/occurred today. Possible causes: bad food exposure. 19:50 Associated signs and symptoms: Pertinent negatives: constipation, fever, GI bleeding. cp 19:50 Severity of symptoms: in the emergency department the symptoms are unchanged. 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 - Social history:: Smoking status: Patient reports the use of cigarette tobacco products, denies chronic smoking, but will smoke occasionally, Reported history of juuling and/or vaping. Patient uses street drugs, marijuana. ROS: 20:00 Constitutional: Negative for body aches, chills, fever. cp 20:00 Eyes: Negative for injury, pain, redness, and discharge. cp 20:00 ENT: Negative for drainage from ear(s), ear pain, sore throat, difficulty swallowing, difficulty handling secretions. 20:00 Cardiovascular: Negative for chest pain, palpitations. 20:00 Respiratory: Negative for cough, shortness of breath, wheezing. 20:00 Abdomen/GI: Positive for abdominal pain, nausea and vomiting, diarrhea, Negative for constipation, hematemesis, black/tarry stool. 20:00 : Negative for urinary symptoms. 20:00 Neuro: Negative for altered mental status, dizziness, headache, weakness. 20:00 All other systems are negative. Exam: 20:03 Constitutional: The patient appears in no acute distress, alert, awake, cp non-diaphoretic, non-toxic, well developed, well nourished, uncomfortable. 20:03 Head/Face: Normocephalic, atraumatic. cp 20:03 Eyes: Periorbital structures: appear normal, Conjunctiva: normal, no exudate, no injection, Sclera: no appreciated abnormality, Lids and lashes: appear normal, bilaterally. 20:03 ENT: External ear(s): are unremarkable, Nose: is normal, Mouth: Lips: moist, Oral mucosa: moist, Posterior pharynx: is normal, airway is patent, no erythema, no exudate. 20:03 Neck: ROM/movement: is normal, is supple, without pain, no range of motions limitations. 20:03 Chest/axilla: Inspection: normal. 20:03 Cardiovascular: Rate: normal, Rhythm: regular. 20:03 Respiratory: the patient does not display signs of respiratory distress, Respirations: normal, no use of accessory muscles, no retractions, labored breathing, is not present, Breath sounds: are clear throughout, no decreased breath sounds, no stridor, no wheezing. 20:03 Abdomen/GI: Inspection: abdomen appears normal, Bowel sounds: active, all quadrants, Palpation: soft, in all quadrants, moderate abdominal tenderness, in all quadrants, rebound tenderness, is not appreciated, involuntary guarding, is not appreciated. 20:03 Back: pain, is absent, ROM is normal. 20:03 Skin: cellulitis, is not appreciated, no rash present. 20:03 Neuro: Orientation: to person, place \\T\\ time. Mentation: is normal, Motor: moves all fours, strength is normal, Sensation: is normal. Vital Signs: 19:29 BP 102 / 77; Pulse 91; Resp 16; Temp 98.2; Pulse Ox 98% on R/A; Weight 13.61 kg; Height cm10 6 ft. 0 in. ; Pain 10/10; 20:45 BP 98 / 69; Pulse 79; Resp 16; Pulse Ox 100% on R/A; ll3 21:11 BP 119 / 83; Pulse 87; Resp 16; Pulse Ox 100% on R/A; ll3 19:29 Body Mass Index 4.07 (13.61 kg, 182.88 cm) cm10 19:29 Pain Scale: Adult cm10 MDM: 19:26 Patient medically screened. cp 20:00 Differential diagnosis: Nonspecific abd pain, gastritis, pancreatitis, diverticulitis, cp viral gastroenteritis, gastroenteritis. 21:20 Data reviewed: vital signs, nurses notes, lab test result(s). cp 21:20 I considered the following discharge prescriptions or medication management in the emergency department Medications were administered in the Emergency Department. See MAR. Counseling: I had a detailed discussion with the patient and/or guardian regarding: the historical points, exam findings, and any diagnostic results supporting the discharge/admit diagnosis, lab results, to return to the emergency department if symptoms worsen or persist or if there are any questions or concerns that arise at home. Response to treatment: the patient's symptoms have markedly improved after treatment, and as a result, I will discharge patient. ED course: Pain and nausea markedly improved, vomiting resolved. Will discharge to home for continued monitoring. 03/08 19:43 Order name: CBC with Diff; Complete Time: 21:16 03/08 21:16 Interpretation: Normal except: RBC 5.17; OSMAN% 76.3. 03/08 19:43 Order name: CMP; Complete Time: 21:16 03/08 21:17 Interpretation: Normal except: GFR 76; GLOB 4.6; A/G 0.7. 03/08 19:43 Order name: Lipase; Complete Time: 21:16 03/08 19:43 Order name: Test, Urine 03/08 19:43 Order name: Urinalysis w/ reflexes 03/08 19:43 Order name: IV Saline Lock; Complete Time: 19:54 03/08 19:43 Order name: Labs collected and sent; Complete Time: 19:54 03/08 21:17 Order name: PO challenge; Complete Time: 21:23 Administered Medications: 19:58 Drug: Dicyclomine IM 20 mg Route: IM; Site: left gluteus; ll3 21:12 Follow up: Response: No adverse reaction; Marked relief of symptoms ll3 19:59 Drug: NS 0.9% IV 1000 ml Route: IV; Rate: 1 bolus; Site: right forearm; ll3 21:28 Follow up: Response: No adverse reaction; IV Status: Completed infusion; IV Intake: ll3 1000ml 19:59 Drug: Famotidine IVP 20 mg Route: IVP; Site: right forearm; ll3 21:12 Follow up: Response: No adverse reaction; Marked relief of symptoms ll3 19:59 Drug: Ondansetron IVP 4 mg Route: IVP; Site: right forearm; ll3 21:12 Follow up: Response: No adverse reaction; Marked relief of symptoms; Nausea is decreasedll3 Disposition Summary: 03/08/23 21:20 Discharge Ordered Location: Home cp Problem: new cp Symptoms: have improved cp Condition: Stable cp Diagnosis - Nausea with vomiting, unspecified cp - Diarrhea, unspecified cp Followup: cp - With: Private Physician - When: 1 - 2 days - Reason: Worsening of condition Discharge Instructions: - Discharge Summary Sheet cp - Diarrhea, Adult cp - Nausea and Vomiting, Adult cp Forms: - Medication Reconciliation Form cp - Thank You Letter cp - Antibiotic Education cp - Prescription Opioid Use cp - Patient Portal Instructions cp Prescriptions: - Zofran 4 mg Oral Tablet - take 1 tablet by ORAL route every 12 hours As needed; 20 tablet; Refills: 0, cp Product Selection Permitted - dicyclomine 10 mg Oral Capsule - take 1 capsule by ORAL route 4 times per day; 30 capsule; Refills: 0, Product cp Selection Permitted Signatures: Dispatcher [employer] EDMS Luis Torrez PA PA cp Loubet, Lynsea, RN RN ll3 Patience Ron RN RN cm10 Corrections: (The following items were deleted from the chart) 03/09 17:36 03/08 19:50 Onset: The symptoms/episode began/occurred today, about 2 hours ago, cp cp
[2023-03-08 21:38] LABS: Specific Gravity > 1.030 (1.005-1.030)
[2023-03-08 21:46] VITALS: TEMP 98.2
[2023-03-08 21:56] VITALS: O2SAT 100
[2023-03-08 21:57] VITALS: BP 98/69
[2023-03-08 22:03] LABS: Specific Gravity > 1.030 (1.005-1.030); Urine Bacteria None Seen /HPF (<20); Urine Bilirubin NEGATIVE (Negative); Urine Blood Trace (Negative); Urine Clarity Turbid (Clear); Urine Color Yellow (Yellow); Urine Crystals Unidentified Few /HPF (None Seen); Urine Glucose NEGATIVE (Negative); Urine Mucus 1+ /HPF (None Seen); Urine Protein TRACE (Negative); Urine Urobilinogen Normal (Normal); Urine pH 5.5 (5.0-7.0)
== END 2023-03-08 21:29 | disposition home or self-care (01) ==
LOC: ER 19:13
DX: R11.2 Nausea with vomiting, unspecified (principal); R19.7 Diarrhea, unspecified; F17.210 Nicotine dependence, cigarettes, uncomplicated; Z88.0 Allergy status to penicillin; Z88.1 Allergy status to other antibiotic agents; Z88.8 Allergy status to other drugs, medicaments and biological substances; Z91.013 Allergy to seafood
CPT/HCPCS: 85025; 81001; 36415; 81025; 83690; 80053; J0500; J2405; J7030; 96361; 96372; 96374; 96375; 99284

== ENCOUNTER 2023-06-15 00:33 | Emergency (ER) | payer SELFPAY ==
--- OUTSIDE RECORDS SUMMARY | 2023-06-15 00:37 | XMS REPORT | Continuity of Care Document ---
:1975 Author Organization [facility] t Address [address] [place] [address] [place] [id number] Care Team Providers Name Role Phone PCP, PATIENT DOES NOT HAVE A Primary Care Physician UnavailJessica Monique Attending Clinician JESSICA MIRELES Attending Clinician Unavailable STEFANY DELANEY Attending Clinician Unavailable Payers Payer Name Policy Type Policy Number Effective Date Expiration Date Keiry bradshaw [employer] [id number] 2022 OUT OF NETWORK 00:00:00 Problems Condition Condition Condition Status Onset Resolution Last Treating Co mments Source Name Details Category Date Date Treatment Clinician Date Galactorrh Galactorrh Disease Active U nivers ea ea 04-07 ity of 00:00: [place] 00 [facility] [place] Poor Poor Disease Active Univers dental dental 04-07 ity of hygiene hygiene 00:00: [facility] History of History of Disease Active U nivers drug abuse drug abuse 03-18 it y of 00:00: [facility] Cervical Cervical Disease Active Unive rs lesion lesion 03-18 ity of 00:00: [place] [facility] Anxiety Anxiety Disease Active Univers and [place] 8 [place] [facility] Allergies, Adverse Reactions, Alerts Allergy Allergy Status [...] Source History of tobacco Cigarette Smoker University [facility] Exposure to 2022-06-14 2022-06-24 Not sure University of SARS-CoV-2 (event) 00:00:00 00:22:00 [facility] Alcohol intake 2022-06-24 2022-06-24 0 /d University of 00:00:00 00:00:00 [facility] Cigarettes smoked 2016-03-18 2016-03-18 Univers ity of current (pack per 00:00:00 00:00:00 [facility] ) - Reported Branch Cigarette 2016-03-18 2016-03-18 University of pack-years 00:00:00 00:00:00 [facility] Tobacco use and 2016-03-18 2016-03-18 User of smokeless Un iversity of exposure 00:00:00 00:00:00 tobacco [facility] Tobacco Comment 2016-03-18 2016-03-18 Pablo Universi ty of 00:00:00 00:00:00 [facility] Sex Ass[birth year] At [birth year] Universit y of 00:00:00 00:00:00 [facility] Smoking Status Start Date Stop Date Source Smokes tobacco daily 2016-03-18 00:00:00 Univers ity of [facility] Medications Ordered Filled Start Stop Current Ordering [...] 06/24/22 at 0100, CHRISTIAN ibuprofen 2021-08 Yes [id number] 600mg Take 1 U nivers 600 mg -11 tablet by ity of tablet 00:00: mouth [place] 00 every 8 Medical (eight) Branch hours as needed for Pain (scale 4-6). amoxicillin 2021-08- No [id number] 1{tbl} Take 1 Univers -clavulanat 08-24 tablet by it y of e 875-125 00:00: 05:59 mouth in [place] as mg per 00 :00 the Medical tablet morning Branch and 1 tablet in the evening. Do all this for 10 days. amoxicillin 2021-08- No [id number] 1{tbl} Take 1 Univers -clavulanat 08-24 tablet [...] Source Systolic blood 2022-06-24 06:28:00 111 mm[Hg[facility] Diastolic blood 2022-06-24 06:28:00 85 mm[Hg] [facility] Heart rate 2022-06-24 06:28:00 103 /min [facility] Body temperature 2022-06-24 06:28:00 36.56 [place] [facility] Respiratory rate 2022-06-24 06:28:00 16 /min [facility] Body height 2022-06-24 06:28:00 182.9 cm [facility] Body weight 2022-06-24 06:28:00 58.741 kg [facility] BMI 2022-06-24 06:28:00 17.56 kg/m2 [facility] Oxygen saturation in 2022-06-24 06:28:00 97 /min University Arterial blood by [facility] Pulse oximetry Branch Procedures Procedure Date / Time Performed Performing Clinician [facility] e POCT TEST 2022-06-24 07:11:00 Jessica Mireles [facility] RAPID STREP SCREEN 2022-06-24 06:34:00 Jessica Mireles [facility] FOR GROUP A [facility] RAPID INFLUENZA A/B 2022-06-24 06:34:00 Jessica Mireles [facility] COVID-19 (ID NOW 2022-06-24 06:34:00 Jessica Mireles [facility] RAPID TESTING) [facility] NOTICE OF PRIVACY 2022-06-24 06:14:13 Doctor Unassigned, No Univ [facility] PRACTICES Name [facility] CONSENT/REFUSAL FOR 2022-06-24 06:12:51 Doctor Unassigned, [facility] AND Name [facility] TREATMENT Encounters Start End Encounter Admission Attending Care Care Encounter Source Date/Time Date/Time Type Type Clinicians Facility Department ID 2022-06-24 2022-06-24 [id number] Univers 00:35:00 02:01:00 Jessica ALEMAN [id number] i [facility] [id number] [facility] [id number] [facility] 084 Branch 2022-06-24 2022-06-24 Emergency X [facility] ERT [id number] Univers 00:35:00 02:01:00 JESSICA [facility] 2020-02-12 2020-02-12 Outpatient Tyler DELANEY [facility] [id number] Univers 09:30:00 09:30:00 STEFANY [id number] [facility] 2020-02-12 2020-02-12 Outpatient Tyler DELANEY [facility] [id number] Univers 09:30:00 09:30:00 STEFANY [facility] Results Test Description Test Time Test Comments Results Result Comments Source POCT TEST 2022-06-24 07:11:00 Test Item Value Reference Range Interpretation Comme nts POCT PREG (test code = 1605) Negative On board controls acceptable with C Line (test code = 3574) Positiv e POCT PREG LOT # (test code = 3575) [id number] POCT PREG TEST DATE (test code = 3576) 11/12/2023 Lab Interpretation (test code = 08845-3) [facility]
[2023-06-15] MEDS ORDERED: NA CHLORIDE 0.9% 1,000 ML ONE (01:55)
[2023-06-15 02:40] LABS: Protime INR 1.11
[2023-06-15 02:41] LABS: Absolute Lymphocytes (CBC) 1.4 K/uL (0.7-4.9); Hematocrit 45.1 % (36.0-45.0); Lymphocytes % 11.4 % (15.3-44.8); MCV 88.4 fL (80-100); MPV 9.1 fL (7.6-11.3); Platelets 228 thou/uL (152-406)
[2023-06-15 02:52] LABS: ALT/SGPT 18 U/L (13-56); AST/SGOT 19 U/L (15-37); Albumin 3.4 g/dL (3.4-5.0); Alkaline Phosphatase 73 U/L (45-117); BUN Blood Urea Nitrogen 15 mg/dL (7-18); Bicarbonate 28 mEq/L (21-32); Bilirubin Total 0.3 mg/dL (0.2-1.0); Glomerular Filtration Rate 74 ml/min (=/>90); Glucose Level 92 mg/dL (74-106); Magnesium 2.3 mg/dL (1.6-2.4); NT PRO-BNP 48 pg/mL (<125); Potassium 3.6 mEq/L (3.5-5.1); Protein, Total 7.4 g/dL (6.4-8.2); Sodium Level 137 mEq/L (136-145); Troponin High Sensitivity 3.5 pg/mL (<58.9)
[2023-06-15 02:56] LABS: Bilirubin Direct < 0.1 mg/dL (0-0.2); Bilirubin Indirect, Calculated ND mg/dL (0.2-0.8)
--- NOTE | 2023-06-15 04:23 | ER ---
Nurse's Notes [facility] Name: Nesha Cooper Age: 47 yrs Sex: Female : 1975 Arrival Date: 06/15/2023 Time: 00:33 Bed 18 Private MD: Diagnosis: Chest pain, unspecified Presentation: 06/15 01:39 Chief complaint: EMS states: 47 year old female reports abdominal pain and chest pain. ha1 Coronavirus screen: Vaccine status: Patient reports being unvaccinated. Ebola Screen: No symptoms or risks identified at this time. Initial Sepsis Screen: Does the patient meet any 2 criteria? No. Patient's initial sepsis screen is negative. Does the patient have a suspected source of infection? No. Patient's initial sepsis screen is negative. Risk Assessment: Do you want to hurt yourself or someone else? Patient reports no desire to harm self or others. Onset of symptoms was June 15, 2023. 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 - Social history:: Smoking status: unknown. - Family history:: not pertinent. Screenin:42 Abuse screen: Denies threats or abuse. Denies injuries from another. Nutritional ha1 screening: No deficits noted. Tuberculosis screening: No symptoms or risk factors identified. 03:00 [facility] ED Fall Risk Assessment (Adult) History of falling in the last 3 months, jj7 including since admission No falls in past 3 months (0 pts) Confusion or Disorientation No (0 pts) Intoxicated or Sedated No (0 pts) Impaired Gait No (0 pts) Mobility Assist Device Used No (0 pt) Altered Elimination No (0 pt) Score/Fall Risk Level 0 - 2 = Low Risk Oriented to surroundings, Maintained a safe environment. Assessment: 00:36 General: Appears comfortable, Behavior is calm, cooperative. Pain: Complains of pain in ha1 chest and abdomen Pain does not radiate. Pain currently is 7 out of 10 on a pain scale. Quality of pain is described as crampy, pressure. Neuro: Level of Consciousness is awake, alert, obeys commands, Oriented to person, place, time, situation. Cardiovascular: Capillary refill < 3 seconds Patient's skin is warm and dry. Respiratory: Airway is patent Respiratory effort is even, unlabored, Respiratory pattern is regular, symmetrical. GI: Abdomen is flat, non-distended, Bowel sounds present X 4 quads. Reports lower abdominal pain, cramping, nausea, vomiting. Derm: Skin is pink, warm \T\ dry. Musculoskeletal: Circulation, motion, and sensation intact. Range of motion: intact in all extremities. 01:30 Reassessment: Patient and/or family updated on plan of care and expected duration. Pain ha1 level reassessed. Patient is alert, oriented x 3, equal unlabored respirations, skin warm/dry/pink. 02:30 Reassessment: Patient and/or family updated on plan of care and expected duration. Pain ha1 level reassessed. Patient is alert, oriented x 3, equal unlabored respirations, skin warm/dry/pink. 03:30 Reassessment: Patient and/or family updated on plan of care and expected duration. Pain ha1 level reassessed. Patient is alert, oriented x 3, equal unlabored respirations, skin warm/dry/pink. Vital Signs: 00:36 BP 140 / 80; Pulse 68; Resp 18 S; Temp 98.3(O); Pulse Ox 98% on R/A; Weight 49.9 kg; 1 Height 6 ft. 0 in. ; 02:30 BP 107 / 78; Pulse 86; Resp 17 S; Pulse Ox 98% on R/A; ha1 03:30 BP 120 / 82; Pulse 71; Resp 17 S; Pulse Ox 99% on R/A; ha1 04:36 BP 114 / 83; Pulse 75; Resp 19; Pulse Ox 98% ; jj7 00:36 Body Mass Index 14.92 (49.90 kg, 182.88 cm) [facility] ED Course: 00:35 Patient arrived in ED. 00:36 Arm band placed on right wrist. [facility] 00:36 Patient has correct armband on for positive identification. Placed in gown. Bed in low ha1 position. Call light in reach. Side rails up X 1. 00:55 Luis Bernal MD is Attending Physician. [facility] 01:00 Pat Maravilla, RN is Primary Nurse. ha1 01:14 XRAY Chest (1 view) In Process Unspecified. EDMS 01:40 Troponin High Sensitivity: 3 AM Sent. nw1 01:40 PREGU Sent. nw1 01:40 Urinalysis w/ reflexes Sent. nw1 01:40 Basic Metabolic Panel Sent. nw1 01:40 CBC with Diff Sent. nw1 01:40 LFT's Sent. nw1 01:40 Magnesium Sent. nw1 01:40 NT PRO-BNP Sent. nw1 01:40 PT-INR Sent. nw1 01:40 Troponin HS Sent. nw1 01:40 Inserted saline lock: 24 gauge in left forearm, using aseptic technique. Blood nw1 collected. 01:41 Triage completed. ha1 04:23 Adeel Begum MD is Referral Physician. [facility] 04:36 No provider procedures requiring assistance completed. IV discontinued, intact, jj7 bleeding controlled, No redness/swelling at site. Pressure dressing applied. 04:36 Provided Education on: discharge instructions. jj7 Administered Medications: 01:01 Not Given (given by EMS): aspirinchewable tablet 324 mg PO once; 81 mg tablets x 4 ha1 01:45 Drug: NS 0.9% IV 1000 ml IV at 1 bolus Per protocol; 1000 mL bolus Route: IV; Rate: 1 nw1 bolus; Site: left forearm; 02:50 Follow up: IV Status: Completed infusion jj7 Medication: 04:09 VIS not applicable for this client. ha1 Outcome: 04:23 Discharge ordered by . [facility] 04:36 Discharged to home ambulatory, jj7 04:36 Condition: improved 04:36 Discharge instructions given to patient, Instructed on discharge instructions, medication usage, Demonstrated understanding of instructions, medications, Prescriptions given X 2, 04:40 Patient left the ED. jj7 Signatures: Dispatcher [employer] Abigail Rodríguez RN RN kl Anderson, Corey, MD MD cha Ayala, Heidy, RN RN 1 Marilou Wilkins RN RN jj7 Williams, Nicole, RN RN nw1 Corrections: (The following items were deleted from the chart) 03:45 03:40 Troponin High Sensitivity+C.DEE.JORGE drawn and sent. mendel GANN
--- NOTE | 2023-06-15 04:24 | EDPHYS ---
Physician Documentation [facility] Name: Nesha Cooper Age: 47 yrs Sex: Female : 1975 Arrival Date: 06/15/2023 Time: 00:33 Bed 18 Private MD: ED Physician Luis Bernal HPI: 06/15 01:10 This 47 yrs old Female presents to ER via Unassigned with complaints of CP AT [facility] HOME. 01:10 The patient or guardian reports chest pain that is located primarily in the anterior [facility] chest wall, bilaterally. Onset: just prior to arrival. The pain does not radiate. Associated signs and symptoms: Pertinent positives: nausea. The chest pain is described as aching. Duration: The patient or guardian reports a single episode, that is still ongoing, but improving. Modifying factors: The symptoms are alleviated by nothing. the symptoms are aggravated by nothing. Severity of pain: At its worst the pain was mild moderate in the emergency department the pain is unchanged. EMS care prior to arrival includes: NOTHING. The patient has not experienced similar symptoms in the past. 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 - Social history:: Smoking status: unknown. - Family history:: not pertinent. ROS: 01:10 Constitutional: Negative for fever, chills, and weight loss, Eyes: Negative for injury, fer pain, redness, and discharge, ENT: Negative for injury, pain, and discharge, Neck: Negative for injury, pain, and swelling, Respiratory: Negative for shortness of breath, cough, wheezing, and pleuritic chest pain, Abdomen/GI: Negative for abdominal pain, nausea, vomiting, diarrhea, and constipation, Back: Negative for injury and pain, : Negative for injury, bleeding, discharge, and swelling, MS/Extremity: Negative for injury and deformity, Skin: Negative for injury, rash, and discoloration, Neuro: Negative for headache, weakness, numbness, tingling, and seizure, Psych: Negative for depression, anxiety, suicide ideation, homicidal ideation, and hallucinations, Allergy/Immunology: Negative for hives, rash, and allergies, Endocrine: Negative for neck swelling, polydipsia, polyuria, polyphagia, and marked weight changes, Hematologic/Lymphatic: Negative for swollen nodes, abnormal bleeding, and unusual bruising, 01:10 Cardiovascular: Positive for chest pain, of the chest, Exam: 01:10 Constitutional: This is a well developed, well nourished patient who is awake, alert, fer and in no acute distress. Head/Face: Normocephalic, atraumatic. Eyes: Pupils equal round and reactive to light, extra-ocular motions intact. Lids and lashes normal. Conjunctiva and sclera are non-icteric and not injected. Cornea within normal limits. Periorbital areas with no swelling, redness, or edema. ENT: Nares patent. No nasal discharge, no septal abnormalities noted. Tympanic membranes are normal and external auditory canals are clear. Oropharynx with no redness, swelling, or masses, exudates, or evidence of obstruction, uvula midline. Mucous membranes moist. Neck: Trachea midline, no thyromegaly or masses palpated, and no cervical lymphadenopathy. Supple, full range of motion without nuchal rigidity, or vertebral point tenderness. No Meningismus. Chest/axilla: Normal chest wall appearance and motion. Nontender with no deformity. No lesions are appreciated. Cardiovascular: Regular rate and rhythm with a normal S1 and S2. No gallops, murmurs, or rubs. Normal PMI, no JVD. No pulse deficits. Respiratory: Lungs have equal breath sounds bilaterally, clear to auscultation and percussion. No rales, rhonchi or wheezes noted. No increased work of breathing, no retractions or nasal flaring. Abdomen/GI: Soft, non-tender, with normal bowel sounds. No distension or tympany. No guarding or rebound. No evidence of tenderness throughout. Back: No spinal tenderness. No costovertebral tenderness. Full range of motion. Skin: Warm, dry with normal turgor. Normal color with no rashes, no lesions, and no evidence of cellulitis. MS/ Extremity: Pulses equal, no cyanosis. Neurovascular intact. Full, normal range of motion. Neuro: Awake and alert, GCS 15, oriented to person, place, time, and situation. Cranial nerves II-XII grossly intact. Motor strength 5/5 in all extremities. Sensory grossly intact. Cerebellar exam normal. Normal gait. Psych: Awake, alert, with orientation to person, place and time. Behavior, mood, and affect are within normal limits. 01:10 ECG was reviewed by the Attending Physician. 01:21 Musculoskeletal/extremity: DVT Exam: No signs of deep vein thrombosis. no pain, no fer swelling, no tenderness, negative Homans' sign noted on exam, no appreciated bluish discoloration, no erythema, no increased warmth, 04:22 ECG was reviewed by the Attending Physician. [facility] Vital Signs: 00:36 BP 140 / 80; Pulse 68; Resp 18 S; Temp 98.3(O); Pulse Ox 98% on R/A; Weight 49.9 kg; ha1 Height 6 ft. 0 in. ; 02:30 BP 107 / 78; Pulse 86; Resp 17 S; Pulse Ox 98% on R/A; ha1 03:30 BP 120 / 82; Pulse 71; Resp 17 S; Pulse Ox 99% on R/A; ha1 04:36 BP 114 / 83; Pulse 75; Resp 19; Pulse Ox 98% ; jj7 00:36 Body Mass Index 14.92 (49.90 kg, 182.88 cm) ha1 MDM: 00:56 Patient medically screened. [facility] 01:14 Differential diagnosis: abnormal EKG, acute myocardial infarction, acute pericarditis, fer chest wall pain, congestive heart failure Cholelithiasis costochondritis, esophagitis, gastritis, gastroesophageal reflux disease (GERD), hiatal hernia, pericarditis, pleurisy, pneumonia, pneumothorax, pulmonary embolus, stable angina, thoracic aortic disection, unstable angina. HEART Score: ECG: Normal (0), Age: > 45 and < 65 years (1), Risk Factors: 1 or 2 risk factors (1), [Active Smoker] [+ Family HX] Troponin: < or = 1 x Normal Limit (0). The patient was given aspirin in the Emergency Department. COMFORT Risk Score: TOTAL SCORE = 0. Data reviewed: vital signs, nurses notes, EMS record, lab test result(s), EKG, radiologic studies, plain films. Consideration of Admission/Observation Escalation of care including admission/observation considered. I considered the following discharge prescriptions or medication management in the emergency department Medications were administered in the Emergency Department. See MAR. Independent interpretation of the following test(s) in the Emergency Department EKG: See my EKG interpretation above. Test considered but Not performed: CT: NO CT PE. Historians other than the Patient: EMS: EMS WELL INFORMED. Care significantly affected by the following chronic conditions:. Counseling: I had a detailed discussion with the patient and/or guardian regarding the historical points, exam findings, and any diagnostic results supporting the discharge/admit diagnosis, lab results, radiology results, the need for outpatient follow up, for definitive care, a editor farm journal, a family practitioner. 06/15 00:57 Order name: Basic Metabolic Panel; Complete Time: 02:57 [facility] 06/15 00:57 Order name: CBC with Diff; Complete Time: 02:57 [facility] 06/15 00:57 Order name: LFT's; Complete Time: 02:57 [facility] 06/15 00:57 Order name: Magnesium; Complete Time: 02:57 [facility] 06/15 00:57 Order name: NT PRO-BNP; Complete Time: 02:57 [facility] 06/15 00:57 Order name: PT-INR; Complete Time: 02:57 [facility] 06/15 00:57 Order name: Troponin HS; Complete Time: 02:57 [facility] 06/15 01:21 Order name: Troponin High Sensitivity: 3 AM; Complete Time: 02:57 [facility] 06/15 03:42 Order name: Troponin High Sensitivity; Complete Time: 04:22 EDMS 06/15 00:57 Order name: XRAY Chest (1 view) [facility] 06/15 00:57 Order name: EKG; Complete Time: 00:57 [facility] 06/15 03:41 Order name: EKG; Complete Time: 03:41 [facility] 06/15 00:57 Order name: Cardiac monitoring; Complete Time: 01:01 [facility] 06/15 00:57 Order name: EKG - Nurse/Tech; Complete Time: 01:01 [facility] 06/15 00:57 Order name: IV Saline Lock; Complete Time: 01:40 [facility] 06/15 00:57 Order name: Labs collected and sent; Complete Time: 01:40 [facility] 06/15 00:57 Order name: O2 Per Protocol; Complete Time: 02:25 [facility] 06/15 00:57 Order name: O2 Sat Monitoring; Complete Time: 02:25 [facility] 06/15 03:41 Order name: EKG - Nurse/Tech; Complete Time: 04:05 fer EC:10 Rate is 80 beats/min. Rhythm is regular. QRS [place] is Normal. [place] interval is normal. QRS fer interval is normal. QT interval is normal. No Q waves. T waves are Normal. No ST changes noted. Clinical impression: Normal ECG and No evidence of ischemia. Interpreted by me. Reviewed by me. 04:22 Rate is 67 beats/min. Rhythm is regular. QRS [place] is Normal. [place] interval is normal. QRS fer interval is normal. QT interval is normal. No Q waves. T waves are Normal. No ST changes noted. Clinical impression: Normal ECG and No evidence of ischemia. Interpreted by me. Reviewed by me. Administered Medications: 01:01 Not Given (given by EMS): aspirinchewable tablet 324 mg PO once; 81 mg tablets x 4 ha1 01:45 Drug: NS 0.9% IV 1000 ml IV at 1 bolus Per protocol; 1000 mL bolus Route: IV; Rate: 1 nw1 bolus; Site: left forearm; 02:50 Follow up: IV Status: Completed infusion jj7 Disposition Summary: 06/15/23 04:23 Discharge Ordered Notes: Location: Home fer Problem: new fer Symptoms: have improved fer Condition: Stable fer Diagnosis - Chest pain, unspecified fer Followup: fer - With: Private Physician - When: 2 - 3 days - Reason: Recheck today's complaints, Continuance of care, Re-evaluation by your physician Followup: fer - With: Adeel Begum MD - When: 2 - 3 days - Reason: Recheck today's complaints, Re-evaluation by your physician Discharge Instructions: - Discharge Summary Sheet fer - Nonspecific Chest Pain, Adult fer - Nonspecific Chest Pain, Adult, [id number] fer - Aspirin and Your Heart fer Forms: - Medication Reconciliation Form [facility] - Thank You Letter fer - Antibiotic Education fer - Prescription Opioid Use fer - Patient Portal Instructions [facility] - Leadership Thank You Letter [facility] Prescriptions: - Pepcid 20 mg Oral tablet - take 1 tablet ORAL route every 12 hours for 21 days; 42 tablet; Refills: 0, [facility] Product Selection Permitted - Zofran 4 mg Oral tablet - take 1 tablet ORAL route every 6-8 hours As needed; 20 tablet; Refills: 0, [facility] Product Selection Permitted Signatures: Dispatcher [employer] EDMS Luis Bernal MD MD cha Ayala, Heidy, RN RN ha1 Nory Lee RN RN nw1 Marilou Wilkins RN jj7 Corrections: (The following items were deleted from the chart) 03:45 03:37 Troponin High Sensitivity+C.LAB.BRZ ordered. EDNE EDMS
[2023-06-15 05:04] VITALS: TEMP 98.3
[2023-06-15 05:08] VITALS: BP 114/83; O2SAT 98
--- NOTE | 2023-06-15 09:45 | EKG ---
Test Date: 2023-06-15 Test Time: 03:59:19 Video Production Specialist: ADAIR MEASUREMENT RESULTS: Intervals: Rate: 67 IA: 134 QRSD: 90 QT: 420 QTc: 443 [place]: P: 57 IA: 134 QRS: 84 T: 77 INTERPRETIVE STATEMENTS: Normal sinus rhythm Normal ECG Compared to ECG 06/15/2023 00:52:15 No significant changes Electronically Signed On 06-15-23 09:44:49 CDT by Adeel Begum
--- NOTE | 2023-06-15 09:45 | EKG ---
Test Date: 2023-06-15 Test Time: 00:52:15 Transformer Molder: MIKEL MEASUREMENT RESULTS: Intervals: Rate: 80 NH: 134 QRSD: 82 QT: 396 QTc: 456 Granite: P: 73 NH: 134 QRS: 86 T: 76 INTERPRETIVE STATEMENTS: Normal sinus rhythm Normal ECG Compared to ECG 06/21/2022 22:14:56 Sinus tachycardia no longer present Electronically Signed On 06-15-23 09:44:58 CDT by Adeel Begum
--- NOTE | 2023-06-15 12:37 | RAD REPORT ---
EXAM DESCRIPTION: XR Chest, 1 View CLINICAL HISTORY: The patient is 47 years old and is Female; CHEST PAIN TECHNIQUE: Frontal view of the chest. COMPARISON: No relevant prior studies available. FINDINGS: Lungs: Unremarkable. No consolidation. Pleural space: Unremarkable. No pneumothorax. Heart: Unremarkable. Mediastinum: Unremarkable. Bones/joints: No acute findings. IMPRESSION: No acute findings in the chest. Electronically signed by: Theo Flores MD 06/15/2023 1:27 AM CDT Due to temporary technical issues with the PACS/Fluency reporting system, reports are being signed by the in house radiologist without review as a courtesy to ensure prompt reporting. The interpreting r adiologist is fully responsible for the content of the report.
== END 2023-06-15 04:40 | disposition home or self-care (01) ==
LOC: ER 00:33
DX: R07.89 Other chest pain (principal); R11.0 Nausea
CPT/HCPCS: 36415; 71045; 80048; 80076; 83735; 83880; 84484; 85025; 85610; 93005; 96360; 99284; J7030

== ENCOUNTER 2023-06-20 18:36 | Emergency (ER) | payer SELFPAY ==
--- OUTSIDE RECORDS SUMMARY | 2023-06-20 18:48 | XMS REPORT | Continuity of Care Document ---
:1975 Author Organization [facility] t Address [address] [place] [address] [place] [id number] Care Team Providers Name Role Phone PCP, PATIENT DOES NOT HAVE A Primary Care Physician UnavailJessica Monique Attending Clinician JESSICA MIRELES Attending Clinician Unavailable STEFANY DELANEY Attending Clinician Unavailable Payers Payer Name Policy Type Policy Number Effective Date Expiration Date Keiry bradshaw [employer] [id number] 2022 OUT OF NETWORK 00:00:00 Problems Condition Condition Condition Status Onset Resolution Last Treating Co mments Source Name Details Category Date Date Treatment Clinician Date Galactorrh Galactorrh Disease Active U nivers ea ea 04-07 ity of 00:00: [place] 00 Medical [place] Poor Poor Disease Active Univers dental dental 04-07 ity of hygiene hygiene [facility] History of History of Disease Active U nivers drug abuse drug abuse 03-18 it y of 00:00: [facility] Cervical Cervical Disease Active Unive rs lesion lesion 03-18 ity of 00:00: [place] [facility] Anxiety Anxiety Disease Active Univers and and 8 [facility] depression [facility] Allergies, Adverse Reactions, Alerts Allergy Allergy Status [...] Source History of tobacco Cigarette Smoker [facility] Exposure to 2022-06-14 2022-06-24 Not sure University of SARS-CoV-2 (event) 00:00:00 00:22:00 [facility] Alcohol intake 2022-06-24 2022-06-24 0 /d University of 00:00:00 00:00:00 [facility] Cigarettes smoked 2016-03-18 2016-03-18 Univers ity of current (pack per 00:00:00 00:00:00 [facility] ) - Reported Branch Cigarette 2016-03-18 2016-03-18 University of pack-years 00:00:00 00:00:00 [facility] Tobacco use and 2016-03-18 2016-03-18 User of smokeless Un iversity of exposure 00:00:00 00:00:00 tobacco [facility] Tobacco Comment 2016-03-18 2016-03-18 Pablo Universi ty of 00:00:00 00:00:00 [facility] Sex Assigned At [birth year] Universit y of 00:00:00 00:00:00 [facility] Smoking Status Start Date Stop Date Source Smokes tobacco daily 2016-03-18 00:00:00 Univers ity of [facility] Medications Ordered Filled Start Stop Current [...] 06/24/22 at 0100, CHRISTIAN ibuprofen 2021-08 Yes [id number] 600mg Take 1 U nivers 600 mg -11 tablet by ity of tablet 00:00: mouth [place] 00 every 8 Medical (eight) Branch hours as needed for Pain (scale 4-6). amoxicillin 2021-08- No [id number] 1{tbl} Take 1 Univers -clavulanat 08-24 tablet by it y of e 875-125 00:00: 05:59 mouth in [place] as mg per 00 :00 the Medical tablet morning Branch and 1 tablet in the evening. Do all this for 10 days. amoxicillin 2021-08- No [id number] 1{tbl} Take 1 Univers -clavulanat 08-24 tablet [...] [facility] Diastolic blood 2022-06-24 06:28:00 85 mm[Hg] [facility] Heart rate 2022-06-24 06:28:00 103 /min [facility] Body temperature 2022-06-24 06:28:00 36.56 [place] [facility] Res[facility] 2022-06-24 06:28:00 16 /min [facility] Body height 2022-06-24 06:28:00 182.9 cm [facility] Body weight 2022-06-24 06:28:00 58.741 kg [facility] BMI 2022-06-24 06:28:00 17.56 kg/m2 [facility] Oxygen saturation in 2022-06-24 06:28:00 97 /min University Arterial blood by [facility] Pulse oximetry Branch Procedures Procedure Date / Time Performed Performing Clinician [facility] e POCT TEST 2022-06-24 07:11:00 Jessica Mireles [facility] RAPID STREP SCREEN 2022-06-24 06:34:00 Jessica Mireles [facility] FOR GROUP A [facility] RAPID INFLUENZA A/B 2022-06-24 06:34:00 Jessica Mireles [facility] COVID-19 (ID NOW 2022-06-24 06:34:00 Jessica Mireles [facility] RAPID TESTING) [facility] NOTICE OF PRIVACY 2022-06-24 06:14:13 Doctor Unassigned, No Univ [facility] PRACTICES Name [facility] CONSENT/REFUSAL FOR 2022-06-24 06:12:51 Doctor Unassigned, No [facility] DIAGNOSIS AND Name [facility] TREATMENT Encounters Start End Encounter Admission Attending Care Care Encounter Source Date/Time Date/Time Type Type Clinicians Facility Department ID 2022-06-24 2022-06-24 [facility] [id number] Univers 00:35:00 02:01:00 Jessica ALEMAN [id number] i [facility] [id number] [facility] [id number] [facility] 084 Branch 2022-06-24 2022-06-24 Emergency X [facility] ERT [id number] Univers 00:35:00 02:01:00 JESSICA [facility] 2020-02-12 2020-02-12 Outpatient Tyler DELANEY [facility] [id number] Univers 09:30:00 09:30:00 STEFANY [id number] [facility] 2020-02-12 2020-02-12 Outpatient Tyler DELANEY [facility] [id number] Univers 09:30:00 09:30:00 STEFANY [facility] Results Test Description Test Time Test Comments Results Result Comments Source POCT TEST 2022-06-24 07:11:00 Test Item Value Reference Range Interpretation Comme nts POCT PREG (test code = 1605) Negative On board controls acceptable with C Line (test code = 3574) Positiv e POCT PREG LOT # (test code = 3575) [id number] POCT PREG TEST DATE (test code = 3576) 11/12/2023 Lab Interpretation (test code = 63659-1) [facility]
--- NOTE | 2023-06-20 19:42 | EDPHYS ---
Physician Documentation [facility] Name: Nesha Cooper Age: 47 yrs Sex: Female : 1975 Arrival Date: 06/20/2023 Time: 18:36 Bed IW6 Private MD: ED Physician Osvaldo Burris HPI: 06/20 19:57 This 47 yrs old Female presents to ER via Wheelchair with complaints of FOOD POISONING. kb 19:57 Patient is a 47-year-old female who presents for nausea, vomiting, diarrhea and kb abdominal pain that started at 3 PM today. States she believes she ate some bad food.. 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 - Social history:: Smoking status: Patient denies any tobacco usage or history of. ROS: 19:57 Constitutional: Negative for fever, chills, and weight loss, kb 19:57 Abdomen/GI: Positive for abdominal pain, nausea, vomiting, and diarrhea, 19:57 All other systems are negative, Exam: 19:57 Constitutional: This is a well developed, well nourished patient who is awake, alert, kb and in no acute distress. Head/Face: Normocephalic, atraumatic. ENT: Moist Mucous membranes Cardiovascular: Regular rate Respiratory: Respirations even and unlabored. No increased work of breathing. Talking in full sentences Skin: Warm, dry with normal turgor. Normal color. MS/ Extremity: Pulses equal, no cyanosis. Neurovascular intact. Full, normal range of motion. Neuro: Awake and alert, GCS 15, oriented to person, place, time, and situation. Moves all extremities. Normal gait. 19:57 Abdomen/GI: Inspection: abdomen appears normal, Bowel sounds: normal, Palpation: soft, in all quadrants, mild abdominal tenderness, in the right lower quadrant, Vital Signs: 19:38 BP 114 / 73; Pulse 95; Resp 18; Temp 98.2; Pulse Ox 99% ; cm10 MDM: 19:10 Patient medically screened. kb 19:57 Differential diagnosis: Nonspecific abd pain, appendicitis, diverticulitis, viral kb gastroenteritis. Data reviewed: vital signs, nurses notes. Test considered but Not performed: Labs: CBC, CMP and lipase considered but patient does not want any diagnostics completed during this visit.. CT: CT abdomen pelvis considered for right lower quadrant tenderness but patient does not want any diagnostic tests completed at this time.. Counseling: I had a detailed discussion with the patient and/or guardian regarding the historical points, exam findings, and any diagnostic results supporting the discharge/admit diagnosis, the need for outpatient follow up, a family practitioner, to return to the emergency department if symptoms worsen or persist or if there are any questions or concerns that arise at home. ED course: Patient wishes to be discharged prior to any testing or treatment.. 06/20 19:32 Order name: IV Saline Lock kb 06/20 19:32 Order name: Labs collected and sent kb Administered Medications: 19:44 Drug: Ondansetron Oral Disintegrating Tablet Oral Disintegrating Tablet 4 mg PO once cm10 Route: PO; 19:44 Follow up: Response: No adverse reaction cm10 Disposition Summary: 06/20/23 19:41 Discharge Ordered Notes: Location: Home kb Condition: Stable kb Diagnosis - Nausea with vomiting, unspecified kb - Diarrhea, unspecified kb Followup: kb - With: Emergency Department - When: As needed - Reason: Worsening of condition Followup: kb - With: Private Physician - When: 2 - 3 days - Reason: Recheck today's complaints, Continuance of care, Re-evaluation by your physician Discharge Instructions: - Discharge Summary Sheet kb - Viral Gastroenteritis, Adult, [id number] kb Forms: - Medication Reconciliation Form kb - Thank You Letter kb - Antibiotic Education kb - Prescription Opioid Use kb - Patient Portal Instructions kb - Leadership Thank You Letter kb Addendum: 06/24/2023 07:57 I was immediately available for consultation during this patient's visit. I did not e c2 personally see the patient or guide the patient's care. . Signatures: Dispatcher [employer] Sissy Poole FNP-C FNP-Ckb Martinez, Clarissa, RN RN cm10 Osvaldo Burris MD MD ec2
--- NOTE | 2023-06-20 19:42 | ER ---
Nurse's Notes [facility] Name: Nesha Cooper Age: 47 yrs Sex: Female : 1975 Arrival Date: 06/20/2023 Time: 18:36 Bed IW6 Private MD: Diagnosis: Nausea with vomiting, unspecified;Diarrhea, unspecified Presentation: 06/20 19:38 Chief complaint: Patient states: "I think I have food poisoning. I have been throwing cm10 up since 3 this afternoon." I told my ride to come get me so I want to leave. Coronavirus screen: Vaccine status: Patient reports being unvaccinated. Ebola Screen: Patient denies travel to an Ebola-affected area in the 21 days before illness onset. No symptoms or risks identified at this time. Initial Sepsis Screen: Does the patient meet any 2 criteria? No. Patient's initial sepsis screen is negative. Does the patient have a suspected source of infection? No. Patient's initial sepsis screen is negative. Risk Assessment: Do you want to hurt yourself or someone else? Patient reports no desire to harm self or others. Onset of symptoms was June 20, 2023. 19:38 Method Of Arrival: Wheelchair cm10 19:38 Acuity: DAREK 3 cm10 Triage Assessment: 19:40 General: Appears in no apparent distress. comfortable, Behavior is calm, cooperative. cm10 Pain: Denies pain. Neuro: No deficits noted. Webster Agitation-Sedation Scale (RASS): 0 - Alert and Calm Level of Consciousness is awake, alert, obeys commands, Oriented to person, place, time, situation. Cardiovascular: No deficits noted. Patient's skin is warm and dry. Respiratory: No deficits noted. Airway is patent Respiratory effort is even, unlabored, Respiratory pattern is regular, symmetrical. GI: Reports nausea, vomiting. 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 - Social history:: Smoking status: Patient denies any tobacco usage or history of. Screenin:41 [facility] ED Fall Risk Assessment (Adult) History of falling in the last 3 months, cm10 including since admission No falls in past 3 months (0 pts). Abuse screen: Denies threats or abuse. Denies injuries from another. Nutritional screening: No deficits noted. Tuberculosis screening: No symptoms or risk factors identified. Vital Signs: 19:38 BP 114 / 73; Pulse 95; Resp 18; Temp 98.2; Pulse Ox 99% ; cm10 ED Course: 18:39 Patient arrived in ED. kj1 19:09 Sissy Pavon [facility]-C [facility] kb 19:09 Osvaldo Burris MD is Attending Physician. kb 19:40 Triage completed. cm10 19:40 Arm band placed on Patient placed in waiting room. cm10 19:41 Patient has correct armband on for positive identification. Provided Education on: ER cm10 process and procedures. . 19:41 No provider procedures requiring assistance completed. Patient did not have IV access cm10 during this emergency room visit. Administered Medications: 19:44 Drug: Ondansetron Oral Disintegrating Tablet Oral Disintegrating Tablet 4 mg PO once cm10 Route: PO; 19:44 Follow up: Response: No adverse reaction cm10 Medication: 19:41 VIS not applicable for this client. cm10 Outcome: 19:41 Discharged to home via wheelchair, cm10 19:41 Condition: good 19:41 Discharge instructions given to patient, Instructed on discharge instructions, follow up and referral plans. medication usage, Demonstrated understanding of instructions, follow-up care, medications, Prescriptions given X 1, 19:41 Discharge ordered by MD. kb 19:44 Patient left the ED. cm10 Signatures: Sissy Pavon FNP-C FNP-Leigh Stubbs kj1 Patience Ron, RN RN cm10
[2023-06-20] MEDS ORDERED: ONDANSETRON 4 MG (ODT) TAB ONE (19:56)
[2023-06-20 19:58] VITALS: BP 114/73; TEMP 98.2; O2SAT 99
== END 2023-06-20 19:44 | disposition home or self-care (01) ==
LOC: ER 18:36
DX: R11.2 Nausea with vomiting, unspecified (principal); R19.7 Diarrhea, unspecified; Z88.1 Allergy status to other antibiotic agents; Z88.8 Allergy status to other drugs, medicaments and biological substances; Z91.013 Allergy to seafood; Z91.048 Other nonmedicinal substance allergy status
CPT/HCPCS: 99283; Q0162

== ENCOUNTER 2024-02-06 02:40 | Emergency (ER) | payer OTHER, SELFPAY ==
--- OUTSIDE RECORDS SUMMARY | 2024-02-06 02:42 | XMS REPORT | Continuity of Care Document ---
Author Name Unknown Address [address] [place] [address] [address] thconnect Address [address] [place] [address] 1 [address] [place] [address] Care Team Providers Care Scheduling Agent Name Role Phone PCP, PATIENT DOES NOT HAVE A Primary Care Physic freya Unavailable [email or web address] Attending Clinician Jessica Blake Attending Clinician JESSICA MIRELES Attending Clinician STEFANY Briones Attending Clinician Carlos knox [email or web address]_S Admitting Clinician Devon [place] Payers Payer Name Policy Type Policy Number Effective Date Expirati on Date Source [employer] OUT OF NETWORK [id number] 2022 00:00:00 Problems Condition Name Condition Details Condition Category Status Onset Date Resolution Date Last Treatment Date Treating Clinician Comments Source Galactorrh ea Galactorrh ea Disease Active 04-07 00:00: 00 [facility] acute hospital Poor dental hygiene Poor dental hygiene Disease Active 04-07 00:00: 00 [facility] acute hospital History of drug abuse History of drug abuse Disease Active 03-18 00:00: 00 [facility] acute hospital Cervical lesion Cervical lesion Disease Active 03-18 00:00: 00 [facility] acute hospital Anxiety and depression Anxiety and depression Disease Active 03-18 00:00: 00 [facility] acute hospital Allergies, Adverse Reactions, Alerts Allergy Name Allergy Type Status Severity Reaction(s) Onset Date Inactive Date Treating Clinician Comments Source Iodine And Iodide Containi ng Products Propensi ty to adverse reaction s Active Swelling 02-19 00:00: 00 General acute hospital IODINE AND IODIDE CONTAINI NG PRODUCTS Drug Class Active Hives 02-19 00:00: 00 [facility] acute hospital Social History Social Habit Start Date Stop Date Quantity Comments Source History of tobacco use Cigarette Smoker [facility] Exposure to SARS-CoV-2 (event) 2022-06-14 00:00:00 2022-06-24 00:22:00 Not sure [facility] Alcohol intake 2022-06-24 00:00:00 2022-06-24 00:00:00 0 /d [facility] Cigarettes smoked current (pack per day) - Reported 2016-03-18 00:00:00 2016-03-18 00:00:00 [facility] Cigarette pack-years 2016-03-18 00:00:00 2016-03-18 00:00:00 [facility] Tobacco use and exposure 2016-03-18 00:00:00 2016-03-18 00:00:00 User of smokeless tobacco [facility] Tobacco Comment 2016-03-18 00:00:00 2016-03-18 00:00:00 Pablo [facility] Sex Assigned At 1975 00:00:00 1975 00:00:00 [facility] Smoking Status Start Date Stop Date Source Smokes tobacco daily 2016-03-18 00:00:00 [facility] Medications Ordered Medication Name Filled Medication Name Start Date Stop Date Current Medication? Ordering Clinician Indication Dosage Frequency Signature (SIG) Comments Components Source amoxicillin -clavulanat e (AUGMENTIN) 875-125 mg per tablet 1 tablet 2021-08 07:45: 00 06-24 07:12 :00 No 1{tbl} 1 tablet, Oral, ONCE, 1 dose, On Mon06/24/22 at 0145, CHRISTIAN
Re ason for Anti-Infec tive: Documented Infection< br>Documen blake Infection Site: HEENT
D uration of Therapy: Other (see Comments) General acute hospital dexamethaso ne sod phos PF injection 10 mg 2021-08 07:00: 00 06-24 07:12 :00 No 10mg 10 mg, Intramuscu lar, ONCE, 1 dose, On Mon06/24/22 at 0100, 1 mL General acute hospital ketorolac (TORADOL) injection 30 mg 2021-08 06:57: 00 06-24 07:12 :00 No 30mg 30 mg, Intramuscu lar, ONCE, 1 dose, On Mon06/24/22 at 0100, CHRISTIAN [facility] acute hospital ibuprofen 600 mg tablet 2021-08 00:00: 00 Yes [id number] 600mg Take 1 tablet by mouth every 8 (eight) hours as needed for Pain (scale 4-6). General acute hospital amoxicillin -clavulanat e 875-125 mg per tablet 2021-08 00:00: 00 06-24 00:00 :00 No [id number] 1{tbl} Take 1 tablet by mouth every 12 (twelve) hours. General acute hospital doxycycline (MONODOX) 100 mg capsule 04-06 15:24: 09 Yes 100mg Take 100 mg by mouth 2 (two) times daily. General acute hospital Vital Signs Vital Name Observation Time Observation Value Comments S ource Systolic blood pressure 2022-06-24 06:28:00 111 mm[Hg] [facility] Diastolic blood pressure 2022-06-24 06:28:00 85 mm[Hg] [facility] Heart rate 2022-06-24 06:28:00 103 /min [facility] Body temperature 2022-06-24 06:28:00 36.56 [place] [facility] Respiratory rate 2022-06-24 06:28:00 16 /min [facility] Body height 2022-06-24 06:28:[address] [facility] Body weight 2022-06-24 06:28:[address] [facility] BMI 2022-06-24 06:28:00 17.56 kg/m2 [facility] Oxygen saturation in Arterial blood by Pulse oximetry 2022-06-24 06:28:00 97 /min [facility] Procedures Procedure Date / Time Performed Performing Clinicia n Source POCT TEST 2022-06-24 07:11:00 Eduar Mireles [facility] RAPID STREP SCREEN FOR GROUP A 2022-06-24 06:34:00 Jessica Mireles [facility] RAPID INFLUENZA A/B 2022-06-24 06:34:00 Eduar Mireles [facility] COVID-19 (ID NOW RAPID TESTING) 2022-06-24 06:34:00 Jessica Mireles [facility] NOTICE OF PRIVACY PRACTICES 2022-06-24 06:14:13 Doctor Unassigned, [place] [facility] CONSENT/REFUSAL FOR DIAGNOSIS AND TREATMENT 2022-06-24 06:12:51 Doctor Unassigned, [place] [facility] Encounters Start Date/Time End Date/Time Encounter Type Admission Type Attending [facility] Care Facility Care Department Encounter ID Source 2023-06-14 00:00:00 2023-06-14 00:00:00 Outpatient [email or web address] [facility] [id number] [facility] 2022-06-24 00:35:00 2022-06-24 02:01:00 Emergency Jessica Mireles [facility] [id number] General acute hospital 2022-06-24 00:35:00 2022-06-24 02:01:00 Emergency JESSICA LÓPEZ [facility] ERT [id number] General acute hospital 2020-02-12 09:30:00 2020-02-12 09:30:00 Outpatient STEFANY BRYSON [facility] [id number] General acute hospital 2020-02-12 09:30:00 2020-02-12 09:30:00 Outpatient STEFANY BRYSON [facility] [id number] General acute hospital Results Test Description Test Time Test Comments Results Result Co mments Source [facility]
--- NOTE | 2024-02-06 02:44 | EDPHYS ---
Physician Documentation [facility] Name: Nesha Cooper Age: 48 yrs Sex: Female : 1975 Arrival Date: 02/06/2024 Time: 02:40 Bed 6 Private MD: ED Physician Osvaldo Burris HPI: 02/05 02:45 This 48 yrs old Female presents to ER via EMS with complaints of Insect Bite. ec2 02:46 Patient arrives today for evaluation of a rash to the lower abdomen. Patient reports ec2 that 3 days ago she was bitten by an insect. Patient complains of some swelling, states that she attempted to mindy it at home and had some drainage. Reports that she is having some discomfort and persistent redness.. 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 - Infectious Disease History:: Denies. - Social history:: Smoking status: Patient reports the use of cigarette tobacco products, smokes one-half pack cigarettes per day, Reported history of juuling and/or vaping. Patient uses street drugs, Methamphetamine (Meth) Patient/guardian denies using alcohol. ROS: 02:46 Constitutional: as per hpi ec2 Exam: 02:46 Constitutional: GEN: NAD Head: atraumatic Eyes: EOMI Ears: External ears are ec2 normal. CV: regular rate LUNGS: no respiratory distress ABD: non-distended SKIN: Lower abdominal wall with erythema and warmth, induration noted, no appreciable fluctuance noted MSK: no evidence of trauma NEURO: moves all extremities equally Vital Signs: 02:41 BP 112 / 89; Pulse 87; Resp 19; Temp 97.7(O); Pulse Ox 99% on R/A; Pain 6/10; tm6 02:41 Pain Scale: Adult tm6 Procedures: 02:46 Ultrasound: Type: soft tissue, performed by the emergency department physician. ec2 MDM: 02:43 Patient medically screened. ec2 02:46 Data reviewed: vital signs. ED course: Patient arrives today for evaluation of a skin ec2 rash. Examination remarkable for skin findings as noted above. Patient is hemodynamically stable without fever or tachycardia. I performed bedside ultrasound of the soft tissue area, cobblestoning noted, consistent with cellulitis, no organized fluid collection to drain. Presentation consistent with cellulitis. Considered other processes such as abscess, sepsis, soft tissue skin reaction. Will start the patient on antibiotics have the patient follow-up with primary care. Return precautions given.. Administered Medications: 03:06 Drug: Trimethoprim-Sulfamethoxazole PO (160 mg-800 mg (DS) 1 tablet PO once Route: PO; tm6 03:06 Drug: Acetaminophen-Codeine PO (300 mg-30 mg) 1 tablet PO once; RASS on ADMIN: Combtv4, tm6 Very Agttd3, Agttd2, Rstlss1, AlertClm0, Drwsy-1, Lt Sdtn-2, Mod Sdtn-3, Dp Sdtn-4, UnArsble-5 Route: PO; 03:06 Drug: Ketorolac IM 30 mg IM once Route: IM; Site: right deltoid; tm6 Disposition Summary: 02/06/24 02:44 Discharge Ordered Notes: Location: Home ec2 Condition: Stable ec2 Diagnosis - Cellulitis of abdominal wall ec2 Followup: ec2 - With: Private Physician - When: - Reason: Re-evaluation by your physician Discharge Instructions: - Discharge Summary Sheet ec2 - Cellulitis, Adult ec2 Forms: - Medication Reconciliation Form ec2 - Antibiotic Education ec2 - Prescription Opioid Use ec2 - Patient Portal Instructions ec2 - Leadership Thank You Letter ec2 Prescriptions: - acetaminophen-codeine 300-15 mg Oral tablet - take 1 tablet ORAL route every 8 hours; 10 tablet; Refills: 0, Product ec2 Selection Permitted - Bactrim DS 800-160 mg Oral Tablet - take 1 tablet ORAL route every 12 hours for 10 days; 20 tablet; Refills: 0, ec2 Product Selection Permitted Signatures: Osvaldo Burris MD MD ec2 Ezekiel Alvarez RN RN tm6
--- NOTE | 2024-02-06 02:44 | ER ---
Nurse's Notes [facility] Name: Nesha Cooper Age: 48 yrs Sex: Female : 1975 Arrival Date: 02/06/2024 Time: 02:40 Bed 6 Private MD: Diagnosis: Cellulitis of abdominal wall Presentation: 02/05 02:41 Chief complaint: EMS states: patient bitten by spider 3 days ago in lower center tm6 abdomen. Site swollen, red, and painful. Patient attempted to mindy the site 2 days ago. Patient experiencing 6/10 pain with nausea and vomiting. Coronavirus screen: Vaccine status: Patient reports being unvaccinated. Ebola Screen: Patient negative for fever greater than or equal to 101.5 degrees Fahrenheit, and additional compatible Ebola Virus Disease symptoms Patient denies exposure to infectious person. Patient denies travel to an Ebola-affected area in the 21 days before illness onset. No symptoms or risks identified at this time. Initial Sepsis Screen: Does the patient meet any 2 criteria? No. Patient's initial sepsis screen is negative. Does the patient have a suspected source of infection? No. Patient's initial sepsis screen is negative. Risk Assessment: Do you want to hurt yourself or someone else? Patient reports no desire to harm self or others. Onset of symptoms was February 03, 2024. 02:41 Method Of Arrival: EMS: [facility] tm6 02:41 Acuity: DAREK 4 tm6 Triage Assessment: 02:44 Bite description: bite sustained to suprapubic area is superficial, from insect was tm6 sustained 2 days ago. by a spider, animal information: vaccination(s) is not applicable. General: Appears in no apparent distress. Behavior is calm, cooperative. Pain: Complains of pain in suprapubic area Pain currently is 6 out of 10 on a pain scale. Quality of pain is described as sharp, Is intermittent, Alleviated by. EENT: No signs and/or symptoms were reported regarding the EENT system. Neuro: Level of Consciousness is awake, alert, obeys commands, Oriented to person, place, time, situation. Cardiovascular: No deficits noted. Patient's skin is warm and dry. Respiratory: Airway is patent Respiratory effort is even, unlabored, Respiratory pattern is regular, symmetrical. GI: No signs and/or symptoms were reported involving the gastrointestinal system. Abdomen is round non-distended. : No signs and/or symptoms were reported regarding the genitourinary system. Derm: Wound noted suprapubic area Wound is spider bite. Bite is round. Area around bite is red and swollen Reports pain that is 6 out of 10 on a pain scale. Musculoskeletal: No signs and/or symptoms reported regarding the musculoskeletal system. 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 - Infectious Disease History:: Denies. - Social history:: Smoking status: Patient reports the use of cigarette tobacco products, smokes one-half pack cigarettes per day, Reported history of juuling and/or vaping. Patient uses street drugs, Methamphetamine (Meth) Patient/guardian denies using alcohol. Screenin:49 [facility] ED Fall Risk Assessment (Adult) History of falling in the last 3 months, tm6 including since admission No falls in past 3 months (0 pts) Confusion or Disorientation No (0 pts) Intoxicated or Sedated No (0 pts) Impaired Gait No (0 pts) Mobility Assist Device Used No (0 pt) Altered Elimination No (0 pt) Score/Fall Risk Level 0 - 2 = Low Risk Oriented to surroundings, Maintained a safe environment, Educated pt \T\ family on fall prevention, incl call for assistance when getting out of bed. Abuse screen: Denies threats or abuse. Denies injuries from another. Nutritional screening: No deficits noted. Tuberculosis screening: No symptoms or risk factors identified. Assessment: :49 Reassessment: see triage assessment. Derm: Skin has lesions on lower central abdomen tm6 Skin is red. Vital Signs: 02:41 BP 112 / 89; Pulse 87; Resp 19; Temp 97.7(O); Pulse Ox 99% on R/A; Pain 6/10; tm6 02:41 Pain Scale: Adult tm6 ED Course: 02:41 Patient arrived in ED. jj6 02:41 Ezekiel Alvarez, RN is Primary Nurse. tm6 02:43 Osvaldo Burris MD is Attending Physician. ec2 02:44 Triage completed. tm6 02:44 Arm band placed on right wrist. tm6 02:49 Patient has correct armband on for positive identification. Bed in low position. Call tm6 light in reach. Side rails up X 1. Provided Education on: use of call iverson. Client placed on continuous cardiac and pulse oximetry monitoring. NIBP monitoring applied. Pulse ox on. NIBP on. Door closed. Noise minimized. Warm blanket given. Pillow given. 03:06 No provider procedures requiring assistance completed. Patient did not have IV access tm6 during this emergency room visit. Administered Medications: 03:06 Drug: Trimethoprim-Sulfamethoxazole PO (160 mg-800 mg (DS) 1 tablet PO once Route: PO; tm6 03:06 Drug: Acetaminophen-Codeine PO (300 mg-30 mg) 1 tablet PO once; RASS on ADMIN: Combtv4, tm6 Very Agttd3, Agttd2, Rstlss1, AlertClm0, Drwsy-1, Lt Sdtn-2, Mod Sdtn-3, Dp Sdtn-4, UnArsble-5 Route: PO; 03:06 Drug: Ketorolac IM 30 mg IM once Route: IM; Site: right deltoid; tm6 Medication: 02:49 VIS not applicable for this client. tm6 Outcome: 02:44 Discharge ordered by . ec2 03:06 Discharged to home ambulatory, tm6 03:06 Condition: stable 03:06 Discharge instructions given to patient, Instructed on discharge instructions, follow up and referral plans. medication usage, Demonstrated understanding of instructions, follow-up care, medications, Prescriptions given X 2, 03:07 Patient left the ED. tm6 Signatures: Deja Barboza j6 Osvaldo Burris MD MD ec2 Ezekiel Alvarez, BRENNEN RN tm6
[2024-02-06] MEDS ORDERED: CODEINE 30MG/APAP 300MG TAB ONE (02:55)
[2024-02-06] MEDS ORDERED: SMZ./TMP. 800/160 MG TABLET ONE (02:55)
[2024-02-06] MEDS ORDERED: KETOROLAC 30 MG/ML INJ ONE (02:55)
[2024-02-06 10:03] VITALS: BP 112/89; TEMP 97.7; O2SAT 99
== END 2024-02-06 03:07 | disposition home or self-care (01) ==
LOC: ER 02:40
DX: L03.311 Cellulitis of abdominal wall (principal)

== ENCOUNTER 2024-08-02 19:58 | Emergency (ER) | payer OTHER ==
--- OUTSIDE RECORDS SUMMARY | 2024-08-02 20:00 | XMS REPORT | Continuity of Care Document ---
Author Name Unknown Address [address] [place] [address] [address] th[address] [facility] [address] [place] [address] Care Team Providers Care In House Counsel Name Role Phone PCP, PATIENT DOES NOT HAVE A Primary Care Physic freya Unavailable [email or web address] Attending Clinician Jessica Blake Attending Clinician JESSICA MIRELES Attending Clinician STEFANY Briones Attending Clinician Carlos knox [email or web address]_S Admitting Clinician Devon [place] Payers Payer Name Policy Type Policy Number Effective Date Expirati on Date Source [employer] [id number] 2022 00:00:00 Problems Condition Name Condition Details Condition Category Status Onset Date Resolution Date Last Treatment Date Treating Clinician Comments Source Galactorrh ea Galactorrh ea Disease Active 04-07 00:00: 00 [facility] Poor dental hygiene Poor dental hygiene Disease Active 04-07 00:00: 00 [facility] History of drug abuse History of drug abuse Disease Active 03-18 00:00: 00 [facility] Cervical lesion Cervical lesion Disease Active 03-18 00:00: 00 [facility] Anxiety and depression Anxiety and depression Disease Active 03-18 00:00: 00 [facility] Allergies, Adverse Reactions, Alerts Allergy Name Allergy Type Status Severity Reaction(s) Onset Date Inactive Date Treating Clinician Comments Source Iodine And Iodide Containi ng Products Propensi ty to adverse reaction s Active Swelling 02-19 00:00: 00 [facility] IODINE AND IODIDE CONTAINI NG PRODUCTS Drug Class Active Hives 02-19 00:00: 00 [facility] Social History Social Habit Start Date Stop Date Quantity Comments Source History of tobacco use Cigarette Smoker [facility] Exposure to SARS-CoV-2 (event) 2022-06-14 00:00:00 2022-06-24 00:22:00 Not sure [facility] Alcohol intake 2022-06-24 00:00:00 2022-06-24 00:00:00 0 /d [facility] Cigarettes smoked current (pack per day) - Reported 2016-03-18 00:00:00 2016-03-18 00:00:00 [facility] Cigarette pack-years 2016-03-18 00:00:00 2016-03-18 00:00:00 [facility] Tobacco use and exposure 2016-03-18 00:00:00 2016-03-18 00:00:00 User of smokeless tobacco [facility] Tobacco Comment 2016-03-18 00:00:00 2016-03-18 00:00:00 Pablo [facility] Sex Assigned At 1975 00:00:00 1975 00:00:00 [facility] Smoking Status Start Date Stop Date Source Smokes tobacco daily 2016-03-18 00:00:00 [facility] Medications Ordered Medication Name Filled Medication Name [...]
D uration of Therapy: Other (see Comments) [facility] dexamethaso ne sod phos PF injection 10 mg 2021-08 07:00: 00 06-24 07:12 :00 No 10mg 10 mg, Intramuscu lar, ONCE, 1 dose, On Mon06/24/22 at 0100, 1 mL [facility] ketorolac (TORADOL) injection 30 mg 2021-08 06:57: 00 06-24 07:12 :00 No 30mg 30 mg, Intramuscu lar, ONCE, 1 dose, On Mon06/24/22 at 0100, CHRISTIAN [facility] ibuprofen 600 mg tablet 2021-08 00:00: 00 Yes [id number] 600mg Take 1 tablet by mouth every 8 (eight) hours as needed for Pain (scale 4-6). [facility] amoxicillin -clavulanat e 875-125 mg per tablet 2021-08 00:00: 00 06-24 00:00 :00 No [id number] 1{tbl} Take 1 tablet by mouth every 12 (twelve) hours. [facility] doxycycline (MONODOX) 100 mg capsule 04-06 15:24: 09 Yes 100mg Take 100 mg by mouth 2 (two) times daily. [facility] Vital Signs Vital Name Observation Time Observation Value Comments S ource Systolic blood pressure 2022-06-24 06:28:00 111 mm[Hg] [facility] Diastolic blood pressure 2022-06-24 06:28:00 85 mm[Hg] [facility] Heart rate 2022-06-24 06:28:00 103 /min [facility] Body temperature 2022-06-24 06:28:00 36.56 [place] [facility] Respiratory rate 2022-06-24 06:28:00 16 /min [facility] Body height 2022-06-24 06:28:00 182.9 cm [facility] Body weight 2022-06-24 06:28:00 58.741 kg [facility] BMI 2022-06-24 06:28:00 17.56 kg/m2 [facility] Oxygen saturation in Arterial blood by Pulse oximetry 2022-06-24 06:28:00 97 /min [facility] Procedures Procedure Date / Time Performed Performing Clinicia n Source POCT TEST 2022-06-24 07:11:00 Eduar Mireles [facility] RAPID STREP SCREEN FOR GROUP A 2022-06-24 06:34:00 Jessica Mireles [facility] RAPID INFLUENZA A/B 2022-06-24 06:34:00 Eduar Mireles [facility] COVID-19 (ID NOW RAPID TESTING) 2022-06-24 06:34:00 Jessica Mireles [facility] NOTICE OF PRIVACY PRACTICES 2022-06-24 06:14:13 Doctor Unassigned, [place] [facility] CONSENT/REFUSAL FOR DIAGNOSIS AND TREATMENT 2022-06-24 06:12:51 Doctor Unassigned, [place] [facility] Encounters Start Date/Time End Date/Time Encounter Type Admission Type Attending [facility] Facility Care Department Encounter ID Source 2023-06-14 00:00:00 2023-06-14 00:00:00 Outpatient [email or web address] [email or web address]_S [facility] [id number] [facility] 2022-06-24 00:35:00 2022-06-24 02:01:00 Emergency Jessica Mireles [facility] [id number] [facility] 2022-06-24 00:35:00 2022-06-24 02:01:00 Emergency X JESSICA MIRELES [facility] ERT [id number] [facility] 2020-02-12 09:30:00 2020-02-12 09:30:00 Outpatient STEFANY BRYSON [facility] [id number] [facility] 2020-02-12 09:30:00 2020-02-12 09:30:00 Outpatient STEFANY BRYSON [facility] [id number] [facility] Results Test Description Test Time Test Comments Results Result Co mments Source [facility]
[2024-08-02] MEDS ORDERED: NA CHLORIDE 0.9% 1,000 ML ONE (20:35)
[2024-08-02] MEDS ORDERED: METOCLOPRAMIDE 10 MG/2mL INJ ONE (20:35)
[2024-08-02] MEDS ORDERED: ASPIRIN 81 MG CHEWABLE TABLET ONE (20:35)
[2024-08-02] MEDS ORDERED: KETOROLAC 30 MG/ML INJ ONE (20:35)
[2024-08-02 20:51] LABS: Absolute Basophils 0.1 K/uL (0-0.5); Absolute Eosinophils 0.6 K/uL (0-0.5); Absolute Lymphocytes (CBC) 2.3 K/uL (0.7-4.9); Absolute Monocytes 0.4 K/uL (0.1-1.3); Basophils % 0.9 % (0-1.3); Eosinophils % 8.8 % (0-4.4); Hematocrit 44.6 % (36.0-45.0); Hemoglobin 14.7 g/dL (12.0-15.0); Lymphocytes % 36.6 % (15.3-44.8); MPV 8.8 fL (7.6-11.3); Neutrophils % 46.7 % (41.7-73.7); Nucleated Red Blood Cells % 0.1 % (0-0); PT Prothrombin Time 11.8 SECONDS (9.4-12.5); Platelets 218 thou/uL (152-406); Protime INR 1.06; Red Cell Distribution Width 13.4 % (12.1-15.2)
[2024-08-02 21:08] LABS: ALT/SGPT 17 U/L (13-56); AST/SGOT 22 U/L (15-37); Albumin 3.4 g/dL (3.4-5.0); Albumin/Globulin Ratio 0.8 (1.1-1.8); Alkaline Phosphatase 85 U/L (45-117); Anion Gap 7.5 mEq/L (5.0-15.0); BUN Blood Urea Nitrogen 16 mg/dL (7-18); Bicarbonate 29 mEq/L (21-32); Bilirubin Total 0.4 mg/dL (0.2-1.0); Globulin 4.2 g/dL (2.3-3.5); Glomerular Filtration Rate 90 ml/min (=/>90); Glucose Level 76 mg/dL (74-106); Magnesium 2.1 mg/dL (1.6-2.4); NT PRO-BNP 22 pg/mL (<125); Potassium 3.5 mEq/L (3.5-5.1); Protein, Total 7.6 g/dL (6.4-8.2); Sodium Level 138 mEq/L (136-145); Troponin High Sensitivity 3.3 pg/mL (<58.9)
[2024-08-02 21:22] LABS: Bilirubin Direct < 0.2 mg/dL (0-0.2); Bilirubin Indirect, Calculated 0.2 mg/dL (0.2-0.8)
--- NOTE | 2024-08-02 21:50 | RAD REPORT ---
EXAMINATION: ONE VIEW CHEST XR CLINICAL INDICATION: Female, 48 years old.,CHEST PAIN TECHNIQUE: Frontal chest projection is submitted. Examination is limited by patient positioning and t echnique. COMPARISON: 08/02/2024 FINDINGS: The lungs are well inflated and clear. Superimposition of soft tissues along the lung bases somewhat limits evaluation. No pneumothorax or sizable effusion. The heart is normal in size. Mediastinal contours are unremarkable. IMPRESSION: No acute intrathoracic abnormalities.
--- NOTE | 2024-08-03 01:22 | ER ---
Nurse's Notes [facility] Name: Nesha Cooper Age: 48 yrs Sex: Female : 1975 Arrival Date: 08/02/2024 Time: 19:58 Bed 20 Private MD: Diagnosis: Chest pain, unspecified;Non cardiac Chest pain ;Tension-type headache Presentation: 08/02 20:05 Chief complaint: Patient states: c/o left sided chest pain that woke her up about noon me1 yesterday, constant, "8/10" that feels like pressure. Does not radiate. Reports associated SOB and some diaphoresis. Coronavirus screen: Vaccine status: Patient reports being unvaccinated. Ebola Screen: No symptoms or risks identified at this time. Initial Sepsis Screen: Does the patient meet any 2 criteria? No. Patient's initial sepsis screen is negative. Does the patient have a suspected source of infection? No. Patient's initial sepsis screen is negative. Risk Assessment: Do you want to hurt yourself or someone else? Patient reports no desire to harm self or others. Onset of symptoms was August 01, 2024 at 12:00. 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 - Infectious Disease History:: Denies. - Social history:: Smoking status: Patient reports the use of cigarette tobacco products, smokes one-half pack cigarettes per day. - Family history:: not pertinent. Screenin:16 [facility] ED Fall Risk Assessment (Adult) History of falling in the last 3 months, kj2 including since admission No falls in past 3 months (0 pts) Confusion or Disorientation No (0 pts) Intoxicated or Sedated No (0 pts) Impaired Gait No (0 pts) Mobility Assist Device Used No (0 pt) Altered Elimination No (0 pt) Score/Fall Risk Level 0 - 2 = Low Risk Maintained a safe environment, Hourly rounding (assess needs \\T\\ fall precautionary measures) done. Abuse screen: Denies threats or abuse. Denies injuries from another. Nutritional screening: No deficits noted. Tuberculosis screening: No symptoms or risk factors identified. Assessment: 20:15 General: Appears in no apparent distress. Behavior is calm, cooperative. Pain: kj2 Complains of pain in chest pain Pain currently is 8 out of 10 on a pain scale. Neuro: Level of Consciousness is awake, alert, obeys commands, Oriented to person, place, time, situation. Cardiovascular: Reports chest pain. Respiratory: Airway is patent Respiratory effort is unlabored. GI: No signs and/or symptoms were reported involving the gastrointestinal system. : No signs and/or symptoms were reported regarding the genitourinary system. 21:15 Reassessment: Patient appears in no apparent distress at this time. Patient and/or kj2 family updated on plan of care and expected duration. Pain level reassessed. Patient is alert, oriented x 3, equal unlabored respirations, skin warm/dry/pink. 22:15 Reassessment: Patient appears in no apparent distress at this time. Patient and/or kj2 family updated on plan of care and expected duration. Pain level reassessed. Patient is alert, oriented x 3, equal unlabored respirations, skin warm/dry/pink. 23:15 Reassessment: Patient appears in no apparent distress at this time. Patient and/or kj2 family updated on plan of care and expected duration. Pain level reassessed. Patient is alert, oriented x 3, equal unlabored respirations, skin warm/dry/pink. 08/03 00:22 Reassessment: Patient appears in no apparent distress at this time. Patient and/or kj2 family updated on plan of care and expected duration. Pain level reassessed. Patient is alert, oriented x 3, equal unlabored respirations, skin warm/dry/pink. 01:51 Reassessment: Patient appears in no apparent distress at this time. Patient and/or kj2 family updated on plan of care and expected duration. Pain level reassessed. Patient is alert, oriented x 3, equal unlabored respirations, skin warm/dry/pink. Vital Signs: 08/02 20:05 BP 126 / 88; Pulse 92; Resp 17; Temp 98.3; Pulse Ox 100% ; Weight 58.97 kg; Height 6 me1 ft. 0 in. ; Pain 8/10; 21:15 BP 96 / 73; Pulse 77; Resp 18; Pulse Ox 100% ; kj2 22:15 BP 100 / 76; Pulse 78; Resp 18; Pulse Ox 100% on R/A; kj2 23:15 BP 106 / 81; Pulse 68; Resp 18; Pulse Ox 100% on R/A; kj2 08/03 01:08 BP 113 / 79; Pulse 61; Resp 18; Pulse Ox 100% on R/A; kj2 01:11 BP 92 / 68; Pulse 69; Resp 18; Pulse Ox 99% on R/A; kj2 01:52 BP 105 / 68; Pulse 70; Resp 18; Temp 98; Pulse Ox 100% ; kj2 08/02 20:05 Body Mass Index 17.63 (58.97 kg, 182.88 cm) sc1 08/02 20:05 Pain Scale: Adult me1 [place] Coma Score: 20:28 Eye Response: spontaneous(4). Motor Response: obeys commands(6). Verbal Response: sp4 oriented(5). Total: 15. ED Course: 08/02 20:01 Patient arrived in ED. gm2 20:05 Adolfo Arana MD is Attending Physician. sp4 20:08 Triage completed. me1 20:08 Arm band placed on Patient placed in an exam room. me1 20:15 Heather Stallworth, BRENNEN is Primary Nurse. kj2 20:17 Patient has correct armband on for positive identification. Bed in low position. Call kj2 light in reach. Provided Education on: call light. 20:40 Basic Metabolic Panel Sent. vk 20:40 CBC with Diff Sent. vk 20:40 LFT's Sent. vk 20:40 Magnesium Sent. vk 20:40 NT PRO-BNP Sent. vk 20:40 PT-INR Sent. vk 20:41 Troponin HS Sent. vk 20:41 Initial lab(s) drawn, by me, sent to lab. EKG done, by ED staff, Flu and/or RSV swab vk sent to lab. Inserted saline lock: 24 gauge in right forearm, using aseptic technique. Blood collected. Flushed with 10 mL NS. 21:04 XRAY Chest (1 view) In Process Unspecified. EDMS 08/03 00:27 Troponin High Sensitivity Sent. kj2 01:21 Adeel Begum MD is Referral Physician. sp4 01:52 No provider procedures requiring assistance completed. IV discontinued, intact, kj2 bleeding controlled, No redness/swelling at site. Pressure dressing applied. Administered Medications: 08/02 20:44 Drug: NS 0.9% IV 1000 ml IV at 1000 ml once; to be given as a bolus over 60 minutes kj2 Route: IV; Rate: 1000 ml; Site: right forearm; 21:44 Follow up: IV Status: Completed infusion; IV Intake: 1000ml kj2 20:44 Drug: Aspirin PO Chewable Tablet 324 mg PO once; 81 mg tablets x 4 Route: PO; kj2 21:45 Follow up: Response: No adverse reaction kj2 20:45 Drug: Ketorolac IVP 30 mg IVP once Route: IVP; Site: right forearm; kj2 21:45 Follow up: Response: No adverse reaction kj2 20:45 Drug: metoCLOPramide IVP 10 mg IVP once; over 1 to 2 minutes Route: IVP; Site: right kj2 forearm; 21:45 Follow up: Response: No adverse reaction kj2 Medication: 20:17 VIS not applicable for this client. kj2 Intake: 21:44 IV: 1000ml; Total: 1000ml. kj2 Outcome: 08/03 01:22 Discharge ordered by . sp4 01:53 Discharged to home ambulatory, kj2 01:53 Condition: stable 01:53 Discharge instructions given to patient, Instructed on discharge instructions, follow up and referral plans. medication usage, Demonstrated understanding of instructions, follow-up care, medications, Prescriptions given X 1, 02:00 Patient left the ED. kj2 Signatures: Dispatcher [employer] EDAdolfo Rosen MD MD sp4 Rylie Hook, RN RN me1 Diana Lakhani gm2 Brisa Snyder Krystal, BRENNEN RN kj2
--- NOTE | 2024-08-03 01:22 | EDPHYS ---
Physician Documentation [facility] Name: Nesha Cooper Age: 48 yrs Sex: Female : 1975 Arrival Date: 08/02/2024 Time: 19:58 Bed 20 Private MD: ED Physician Adolfo Arana HPI: 08/02 20:05 This 48 yrs old Female presents to ER via Unassigned with complaints of CHEST sp4 PAIN FOR 24 HOURS. 08/03 20:28 48-year-old female with presents with acute onset of midsternal chest pressure sp4 described as stress related secondary to holiday season. . 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 - Infectious Disease History:: Denies. - Social history:: Smoking status: Patient reports the use of cigarette tobacco products, smokes one-half pack cigarettes per day. - Family history:: not pertinent. ROS: 08/03 20:28 Constitutional: Negative for fever, chills, and weight loss, positive for chest pain sp4 All other systems are negative, Exam: 20:28 Constitutional: This is a well developed, well nourished patient who is awake, alert, sp4 and in no acute distress. Head/Face: Normocephalic, atraumatic. Eyes: Pupils equal round and reactive to light, extra-ocular motions intact. Lids and lashes normal. Conjunctiva and sclera are not injected. Cornea within normal limits. Periorbital areas with no swelling, redness, or edema. ENT: Nares patent. No nasal discharge, no septal abnormalities noted. Tympanic membranes are normal and external auditory canals are clear. Oropharynx with no redness, swelling, or masses, exudates, or evidence of obstruction, uvula midline. Mucous membranes moist. Neck: Trachea midline, no thyromegaly or masses palpated, and no cervical lymphadenopathy. Supple, full range of motion without nuchal rigidity, or vertebral point tenderness. Chest/axilla: Normal chest wall appearance and motion. Nontender with no deformity. No lesions are appreciated. Cardiovascular: Regular rate and rhythm with a normal S1 and S2. No gallops, murmurs, or rubs. Normal PMI, no JVD. No pulse deficits. Respiratory: Lungs have equal breath sounds bilaterally, clear to auscultation and percussion. No rales, rhonchi or wheezes noted. No increased work of breathing, no retractions or nasal flaring. Abdomen/GI: Soft, with normal bowel sounds. No distension or tympany. No guarding or rebound. No evidence of tenderness throughout. Back: No spinal tenderness. No costovertebral tenderness. Skin: Warm, dry with normal turgor. Normal color with no rashes, no lesions, and no evidence of cellulitis. MS/ Extremity: Pulses equal, no cyanosis. Neurovascular intact. Full, normal range of motion. Neuro: Awake and alert, GCS 15, oriented to person, place, time, and situation. Cranial nerves II-XII grossly intact. Motor strength 5/5 in all extremities. Sensory grossly intact. Psych: Awake, alert, with orientation to person, place and time. Behavior, mood, and affect are within normal limits 20:30 ECG was reviewed by the Attending Physician. EKG at 2005 sp4 Vital Signs: 08/02 20:05 BP 126 / 88; Pulse 92; Resp 17; Temp 98.3; Pulse Ox 100% ; Weight 58.97 kg; Height 6 me1 ft. 0 in. ; Pain 8/10; 21:15 BP 96 / 73; Pulse 77; Resp 18; Pulse Ox 100% ; kj2 22:15 BP 100 / 76; Pulse 78; Resp 18; Pulse Ox 100% on R/A; kj2 23:15 BP 106 / 81; Pulse 68; Resp 18; Pulse Ox 100% on R/A; kj2 08/03 01:08 BP 113 / 79; Pulse 61; Resp 18; Pulse Ox 100% on R/A; kj2 01:11 BP 92 / 68; Pulse 69; Resp 18; Pulse Ox 99% on R/A; kj2 01:52 BP 105 / 68; Pulse 70; Resp 18; Temp 98; Pulse Ox 100% ; kj2 08/02 20:05 Body Mass Index 17.63 (58.97 kg, 182.88 cm) me1 08/02 20:05 Pain Scale: Adult me1 Wayne Coma Score: 20:28 Eye Response: spontaneous(4). Motor Response: obeys commands(6). Verbal Response: sp4 oriented(5). Total: 15. MDM: 08/02 20:06 Medical Screening Exam initiated sp4 20:06 Differential diagnosis: acute pericarditis, Cholelithiasis costochondritis, sp4 esophagitis, gastritis. HEART Score: History: Slightly Suspicious (0), ECG: Normal (0), Age: > 45 and < 65 years (1), Risk Factors: No Risk Factors Known (0), Troponin: < or = 1 x Normal Limit (0), Total Score = 1. The patient was given aspirin in the Emergency Department. Data reviewed: vital signs, nurses notes, lab test result(s), CBC, electrolytes, hepatic panel, EKG, radiologic studies, plain films. ED course: Second troponin is negative. Patient stable for discharge home. 08/02 20:06 Order name: Basic Metabolic Panel; Complete Time: 21:44 sp4 08/02 20:06 Order name: CBC with Diff; Complete Time: 21:44 4 08/02 20:06 Order name: LFT's; Complete Time: 21:44 sp4 08/02 20:06 Order name: Magnesium; Complete Time: 21:44 4 08/02 20:06 Order name: NT PRO-BNP; Complete Time: 21:44 sp4 08/02 20:06 Order name: PT-INR; Complete Time: 21:44 sp4 08/02 20:06 Order name: Troponin HS; Complete Time: 21:44 4 08/02 20:15 Order name: Influenza Screen (a \T\ B); Complete Time: 21:44 sp4 08/02 22:56 Order name: Troponin High Sensitivity; Complete Time: 01:18 sp4 08/02 20:06 Order name: XRAY Chest (1 view); Complete Time: 23:41 sp4 08/02 20:06 Order name: Cardiac monitoring; Complete Time: 20:24 sp4 08/02 20:06 Order name: EKG - Nurse/Tech; Complete Time: 20:24 sp4 08/02 20:06 Order name: IV Saline Lock; Complete Time: 20:40 sp4 08/02 20:06 Order name: Labs collected and sent; Complete Time: 20:40 sp4 08/02 20:06 Order name: O2 Per Protocol; Complete Time: 20:24 sp4 08/02 20:06 Order name: O2 Sat Monitoring; Complete Time: 20:24 sp4 EC: Rate is 78 beats/min. Rhythm is regular, Normal Sinus Rhythm. QRS Wilson is Normal. VT sp4 interval is normal. QRS interval is normal. QT interval is normal. No Q waves. T waves are Normal. No ST changes noted. Clinical impression: Normal ECG. Interpreted by me. Reviewed by me. Administered Medications: 20:44 Drug: NS 0.9% IV 1000 ml IV at 1000 ml once; to be given as a bolus over 60 minutes kj2 Route: IV; Rate: 1000 ml; Site: right forearm; 21:44 Follow up: IV Status: Completed infusion; IV Intake: 1000ml kj2 20:44 Drug: Aspirin PO Chewable Tablet 324 mg PO once; 81 mg tablets x 4 Route: PO; kj2 21:45 Follow up: Response: No adverse reaction kj2 20:45 Drug: Ketorolac IVP 30 mg IVP once Route: IVP; Site: right forearm; kj2 21:45 Follow up: Response: No adverse reaction kj2 20:45 Drug: metoCLOPramide IVP 10 mg IVP once; over 1 to 2 minutes Route: IVP; Site: right kj2 forearm; 21:45 Follow up: Response: No adverse reaction kj2 Disposition Summary: 08/03/24 01:22 Discharge Ordered Notes: Location: Home sp4 Problem: new sp4 Symptoms: have improved sp4 Condition: Stable sp4 Diagnosis - Chest pain, unspecified sp4 - Non cardiac Chest pain sp4 - Tension-type headache sp4 Followup: sp4 - With: Adeel Begum MD - When: 7 - 10 days - Reason: Recheck today's complaints Discharge Instructions: - Discharge Summary Sheet sp4 - Nonspecific Chest Pain, Adult, [id number] sp4 Forms: - Patient Portal Instructions sp4 Prescriptions: - Fioricet 50-300-40 mg Oral capsule - take 1 capsule ORAL route every 6 hours PRN headache; 30 capsule; Refills: 0, sp4 Product Selection Permitted Signatures: Dispatcher [employer] Adolfo Gonzalez MD MD sp4 Rylie Hook RN RN me1 Heather Stallworth RN RN kj2 Corrections: (The following items were deleted from the chart) 22:56 22:56 Troponin High Sensitivity+[id number] ordered. [facility] 08/03 20:31 20:30 ECG was reviewed by the Attending Physician. sp4 sp4
[2024-08-03 03:01] VITALS: BP 105/68; TEMP 98; O2SAT 100
--- NOTE | 2024-08-04 13:07 | EKG ---
Test Date: 2024-08-02 Test Time: 20:19:41 Lan Administrator: SHAW MEASUREMENT RESULTS: Intervals: Rate: 87 MN: 134 QRSD: 82 QT: 364 QTc: 438 [place]: P: 64 MN: 134 QRS: 82 T: 70 INTERPRETIVE STATEMENTS: Normal sinus rhythm Normal ECG Compared to ECG 06/15/2023 03:59:19 No significant changes Electronically Signed On 08-04-24 13:04:28 SUPPLY CHAIN DESIGN MANAGER by Juan David Dale
== END 2024-08-03 02:00 | disposition home or self-care (01) ==
LOC: ER 19:58
DX: R07.89 Other chest pain (principal); G44.209 Tension-type headache, unspecified, not intractable; F41.9 Anxiety disorder, unspecified; I10 Essential (primary) hypertension; F32.A Depression, unspecified; J45.909 Unspecified asthma, uncomplicated; E16.2 Hypoglycemia, unspecified; F17.210 Nicotine dependence, cigarettes, uncomplicated; Z88.8 Allergy status to other drugs, medicaments and biological substances; Z91.013 Allergy to seafood; Z91.048 Other nonmedicinal substance allergy status
CPT/HCPCS: 96361; 93005; 85025; 80048; 36415; 83735; 85610; 80076; 84484 ×2; 83880; 87804 ×2; 71045; 96375; 96374; 99284; J2765; J7030